=== PATIENT | female | born 1950 | race Caucasian/White ===

== ENCOUNTER 2019-09-12 09:33 | Outpatient (CLI) | payer MEDICARE, SELFPAY ==
--- NOTE | ~2019-09-12 | XR_ITS ---
EXAMINATION: XR chest 2V DATE: 09/12/2019 10:03 INDICATION: Bronchitis. Cough and shortness of breath and wheezing. TECHNIQUE: Frontal and lateral views of the chest were obtained. COMPARISON: Chest 2 views 04/04/2019, CT abdomen and pelvis 10/06/2017 FINDINGS: There is a nodule in left lower lobe. No pleural effusion or pneumothorax. The heart size i s normal. There are changes of old right-sided type III acromioclavicular separation. IMPRESSION: 1. Nodule in left lower lobe suspicious for primary bronchogenic carcinoma. Noncontrast chest CT is r ecommended. I called this result to Dr. Hutton on 09/12/19 at 10:22 AM. Reviewed, dictated and finalized at location A. PACKER IMPRESSION: 1. Nodule in left lower lobe suspicious for primary bronchogenic carcinoma. Non contrast chest CT is recommended. I called this result to Dr. Hutton on at 10:22 AM.
--- NOTE | ~2019-09-12 | XR_ITS ---
EXAMINATION: XR clavicle RT DATE: 09/12/2019 12:18 INDICATION: Right acromioclavicular separation. TECHNIQUE: 2 views of right clavicle were obtained. COMPARISON: Chest 2 views 02/02/2015 FINDINGS: There is inferior dislocation of the acromion with respect to distal clavicle with widening of the coracoclavicular interval without change from 02/02/2015. No fracture. There is moderate glenoh umeral joint osteoarthritis. There are multiple old healed right rib fractures. IMPRESSION: 1. 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 2. Moderate glenohumeral joint osteoarthritis. Reviewed, dictated and finalized at location A. ER STEAM YACHT
== END 2019-09-12 09:34 | disposition home or self-care (01) ==
PROVIDERS: PCP Emergency Medicine; Visit Provider Emergency Medicine
DX: M54.2 Cervicalgia (principal); M19.011 Primary osteoarthritis, right shoulder; R91.1 Solitary pulmonary nodule
CPT/HCPCS: 71046; 73000

== ENCOUNTER 2023-07-05 13:03 | Outpatient (CLI) | payer MEDICARE, SELFPAY ==
--- NOTE | ~2023-07-05 | CT_ITS ---
CT Scan of the Chest without Contrast: Clinical Indication: Lung cancer screening, personal history of nicotine dependence Technique: Contiguous sections were acquired throughout the chest without intravenous contrast. Dose reduction technique was used on this scan by utilizing automated exposure control and iterative recon struction technique. The dose-length product (DLP) was 87.11 mGy-cm. COMPARISON: 10/06/2017 Findings: There is no evidence of any significant mediastinal, hilar or axillary lymphadenopathy. Coronary sage ry calcifications are present. There is no evidence of pleural or pericardial effusion. There is a 9 mm noncalcified left lower lobe pulmonary nodule (axial image 78), unchanged since prior abdominal pelvic CT dated 10/06/2017. There is mild biapical paraseptal emphysema. Images through the upper abdomen reveal no abnormalities. Impression: Lung RADS 2: Benign appearance. 12 month follow-up screening CT advised. Reviewed, dictated and finalized at [facility]. MIC TILER Impression: Lung RADS 2: Benign appearance. 12 month follow-up screening CT advised.
== END 2023-07-05 13:04 | disposition home or self-care (01) ==
PROVIDERS: PCP Internal Medicine; Visit Provider Nurse Practitioner
DX: Z12.2 Encounter for screening for malignant neoplasm of respiratory organs (principal); Z87.891 Personal history of nicotine dependence
CPT/HCPCS: 71271

== ENCOUNTER 2023-12-05 14:23 | Outpatient (CLI) | payer MEDICARE, SELFPAY ==
--- NOTE | ~2023-12-05 | DEXA_ITS ---
Bone Density Report Name: ORA CARREON Age: 73 Sex: Female Ethnicity: White Date of : 1950 Indication: osteopenia; inflammatory bowel disease; asthma or emphysema; Referring Provider: FLEX ISABEL Study: Bone densitometry was performed. Exam Date: December 05, 2023 Accession number: [id number] Bone Density: Region BMD T-score Z-score Classification AP Spine(L1-L4) 1.130 0.8 3.0 Normal Femoral Neck (Left) 0.626 -2.0 -0.1 Osteopenia Total Hip (Left) 0.788 -1.3 0.3 Osteopenia Femoral Neck (Right) 0.633 -1.9 -0.1 Osteopenia Total Hip (Right) 0.704 -1.9 -0.4 Osteopenia Total Hip Mean 0.746 -1.6 -0.1 Osteopenia World Health Organization criteria for BMD impression classify patients as: Normal (T-score at or above -1.0), Osteopenia (T-score between -1.0 and -2.5), or Osteoporosis (T-score at or below -2.5). 10-year Fracture Risk(1): Major Osteoporotic Fracture 12% Hip Fracture 3.8% Reported Risk Factors: [place] (), Neck BMD=0.626, BMI=28.1, smoking (1) FRAX(R) Version 3.08. Fracture probability calculated for an untreated patient. Fracture probability may be lower if the patient has received treatment. Previous Exams: Region Exam Age BMD T-score BMD Change BMD Change Date g/cm2 vs Baseline vs Previous AP Spine (L1-L4) 12/05/2023 73 1.130 0.8 0.018 (1.6%) 0.018 (1.6%) 02/26/2015 64 1.113 0.6 Total Hip(Left) 12/05/2023 73 0.788 -1.3 0.013 (1.7%) 0.041 (5.5%)* 04/25/2019 68 0.747 -1.6 -0.029 (-3.7%) -0.029 (-3.7%) 02/26/2015 64 0.775 -1.4 Total Hip(Right) 12/05/2023 73 0.704 -1.9 -0.027 (-3.7%) -0.004 (-0.6%) 04/25/2019 68 0.709 -1.9 -0.023 (-3.1%) -0.023 (-3.1%) 02/26/2015 64 0.731 -1.7 *Denotes significance at 95% confidence level, LSC for AP Spine = 0.022 g/cm2, LSC for Total Hip = 0.027 g/cm2 Clinical Information Provided by Patient: Smokes Has used the following medications: Vitamin D, Calcium Has the following medical conditions: Asthma or Emphysema, Inflammatory bowel diseases Patient maximum height was 64 Menopause Age: 47 Drinks caffeinated beverages Onset of menses at age 15 Number of children 3 Impression: The patient has low bone mass, based on the Left Femoral Neck T-score. The patient has an estimated ten-year risk of hip fracture of 3.8% and an estimated ten-year risk of major fracture of 12%, based on the WHO FRAX algorithm. The pat
--- NOTE | ~2023-12-05 | MM_ITS ---
EXAMINATION: MM screening radha BI w opal HISTORY: Screening mammogram TECHNIQUE: Craniocaudal and mediolateral oblique 3-D tomosynthesis images were obtained and synthetic 2-D images were generated. CAD analysis was submitted and interpreted. COMPARISON: 05/13/2019 diagnostic left mammogram 04/03/2020 02/15/2019 bilateral screening mammogram BREAST PARENCHYMAL COMPOSITION: There are scattered areas of fibroglandular density. FINDINGS: There is no evidence of suspicious mass, calcification, or architectural distortion to sugg est malignancy in either breast. There has been no suspicious interval change. IMPRESSION: 1. No mammographic evidence of malignancy. 2. Recommend routine screening mammography in one year. BI-RADS Category 1: Negative Reviewed, dictated and finalized at location B.
== END 2023-12-05 14:24 | disposition home or self-care (01) ==
LOC: ANHIMG 14:26
PROVIDERS: PCP Internal Medicine; Visit Provider Nurse Practitioner
DX: Z12.31 Encounter for screening mammogram for malignant neoplasm of breast (principal); M85.89 Other specified disorders of bone density and structure, multiple sites; Z78.0 Asymptomatic menopausal state
CPT/HCPCS: 77063; 77067; 77080

== ENCOUNTER 2024-02-08 12:49 | Outpatient (CLI) | payer MEDICARE, SELFPAY | END 2024-02-08 12:50 | disposition home or self-care (01) | LOC: ANHAUDASC 12:50 | PROVIDERS: PCP Internal Medicine; Visit Provider Otolaryngology | DX: H90.3 Sensorineural hearing loss, bilateral (principal); H93.19 Tinnitus, unspecified ear; J32.0 Chronic maxillary sinusitis | CPT/HCPCS: 92557; 92567 ==

== ENCOUNTER 2024-02-11 12:37 | Outpatient (CLI) | payer MEDICARE, SELFPAY ==
--- NOTE | ~2024-02-11 | CT_ITS ---
CT sinus wo con Ordering provider: Cj Joe M.D. History: . J32.0 - Chronic maxillary sinusitis . Comparison: None. Technique: Thin slice Scans CT of the paranasal sinuses was performed with coronal and sagittal refor matted images. No IV contrast. . Automated exposure control and iterative reconstruction technique w ere employed. The dose-length product was 402.94 mGy-cm. Findings: NASAL SEPTUM: midline. OSTEOMEATAL UNITS: Bilaterally patent. NASAL TURBINATES AND NASOPHARYNX: Normal. PARANASAL SINUSES: Left maxillary sinus disease. VISUALIZED MASTOIDS: Normal as visualized. BONES: Normal. SUPERFICIAL SOFT TISSUES/VISUALIZED BRAIN PARENCHYMA: Normal. IMPRESSION: Left maxillary sinus disease. Other appearances are unremarkable. Reviewed, dictated and finalized at location A.
== END 2024-02-11 12:38 ==
LOC: GOSHIMG 12:38
PROVIDERS: PCP Internal Medicine; Visit Provider Otolaryngology
DX: J32.0 Chronic maxillary sinusitis (principal)
CPT/HCPCS: 70486

== ENCOUNTER 2024-02-20 11:10 | Emergency (ER) | payer MEDICARE, SELFPAY ==
--- NOTE | ~2024-02-20 | XR_ITS ---
EXAMINATION: XR chest 2V 02/20/2024 12:09 INDICATION: Cough and shortness of breath PROCEDURE: 2 view chest COMPARISON: Comparison to multiple prior studies sequentially, with oldest reviewed study dated 01/2015. FINDINGS: The lungs are clear. The cardiomediastinal silhouette is within normal limits. There are no pleural effusions. There is no pneumothorax suspected. IMPRESSION: 1: NO ACUTE CARDIOPULMONARY DISEASE. Reviewed, dictated and finalized at location B.
[2024-02-20 11:12] VITALS: BP 130/89; PULSE 71; RESP 18; TEMP 36.7; O2SAT 97
[2024-02-20 11:47] VITALS: BP 138/78; PULSE 67; RESP 20; O2SAT 94; O2SAT 95
--- NOTE | 2024-02-20 12:09 | PC.NURSE ---
Pt returned to room 19 at this time from xray
--- NOTE | 2024-02-20 12:28 | ED.URI ---
HPI - URI/Sore Throat General Chief Complaint: Upper Respiratory Infection Stated Complaint: phlegm in throat Time Seen by Provider: 02/20/24 11:38 History of Present Illness HPI Narrative: Pt presents with sore throat and cough. [facility] and felt like her airway was closing off and she was SOB so she was sent to the ER. Pt says she coughed and felt like her throat shut but is now fine. Pt denies fever. Cough dry. Pt has hx of COPD. Related Data Home Medications Medication Instructions Recorded Confirmed alendronate 70 mg tablet 70 mg PO WEEKLY 02/05/24 02/05/24 Allergies Allergy/AdvReac Type Severity Reaction Status Date / Time No Known Allergies Allergy Verified 02/05/24 12:55 Review of Systems Review of Systems: All systems reviewed & are unremarkable except as noted in HPI and below PMFSH Past Medical History Medical History Emphysema lung Hyperlipidemia Osteopenia Family History Family History Father Alcoholism Diabetes mellitus Heart disease Mother Diabetes mellitus Cerebrovascular accident Sibling Breast cancer Social History Social History Years smoked: 40 Smoking status: Current some day smoker Tobacco type: cigarettes Alcohol intake: never Substance use: current Substance use type: marijuana Lack of Transportation: No Lack of Food: Never True Current Housing: I Have Housing Concerned About Future Housing: No Difficulty Paying Gas/Electric Bills: No Difficulty Paying for Meds: No Currently Unemployed: No Education: High School Diploma/GED Difficulty w/ Childcare or Family Care: No Exam Const: General: healthy appearing and no acute distress Nutritional Appearance: well nourished Orientation/consciousness: patient oriented x3 Limitations: no limitations HENMT: Mouth: Yes Normal oral and palatal mucosa present and Yes Abnormal oral and palatal mucosa present Throat: posterior oropharynx normal and uvula midline Eyes: EOM: EOMs intact bilaterally Neck: Neck: normal visual inspection Resp: Effort & Inspection: normal respiratory effort Auscultation: clear to auscultation bilaterally Cardio: Rate: regular rate Rhythm: regular rhythm GI: GI Palp: Yes Soft to palpation and No Tenderness to palpation present (GI) Auscultation: normal bowel sounds Skin: General skin exam: normal color Rashes: no rashes Wounds: no wounds Neuro: General: patient oriented x3, moves all extremities, no focal motor deficits and CN's II-XI intact bilaterally Speech: normal speech Extrem: General: normal to inspection and no clubbing, cyanosis or edema Psych: Mental Status: mental status grossly normal Affect: normal affect Attitude: cooperative Course Vital Signs Vital signs: Vital Signs Temperature 98.1 F 02/20/24 11:12 Pulse Rate 71 02/20/24 11:12 Respiratory Rate 18 02/20/24 11:12 Blood Pressure 130/89 02/20/24 11:12 Pulse Oximetry 97 02/20/24 11:12 Oxygen Delivery Room Air 02/20/24 11:12 Temperature 98.1 F 02/20/24 11:12 Pulse Rate 64 02/20/24 14:05 Respiratory Rate 20 02/20/24 14:05 Blood Pressure 140/79 02/20/24 14:05 Pulse Oximetry 96 02/20/24 14:05 Oxygen Delivery Room Air 02/20/24 11:47 MDM - URI/Sore Throat MDM Narrative Medical decision making narrative: [facility] and then complained of airway compromise which has now resolved. her exam is unremarkable and airway is intact. will check for covid/flu and strep and get cxr. swabs and cxr neg. likely viral uri Lab Data Labs: Lab Results 02/20/24 Range/Units 12:14 Influenza A (RT-PCR) Negative (Negative) Influenza B (RT-PCR) Negative (Negative) RSV (RT-PCR) Negative (Negative) SARS-CoV-2 RNA (RT-PCR) Negative (
[2024-02-20 12:47] LABS: Strep Group A RT-PCR NOT DETECTED (Negative)
[2024-02-20 12:59] LABS: Influenza A QL RT-PCR Negative (Negative); Influenza B QL RT-PCR Negative (Negative); RSV RNA, RT-PCR Negative (Negative); SARS-CoV-2 RNA PCR Negative (Negative)
[2024-02-20 13:37] VITALS: BP 146/88; PULSE 77; RESP 20; O2SAT 94
[2024-02-20 14:05] VITALS: BP 140/79; PULSE 64; RESP 20; O2SAT 96
== END 2024-02-20 14:06 | disposition home or self-care (01) ==
PROVIDERS: Emergency Provider Emergency Medicine; PCP Internal Medicine
DX: J06.9 Acute upper respiratory infection, unspecified (principal); Z20.822 Contact with and (suspected) exposure to COVID-19; J43.9 Emphysema, unspecified; J44.9 Chronic obstructive pulmonary disease, unspecified; E78.5 Hyperlipidemia, unspecified; M85.80 Other specified disorders of bone density and structure, unspecified site; F17.210 Nicotine dependence, cigarettes, uncomplicated
CPT/HCPCS: 71046; 87637; 87651; 99283

== ENCOUNTER 2024-07-14 08:20 | Outpatient (CLI) | payer MEDICARE, SELFPAY ==
--- NOTE | ~2024-07-14 | CT_ITS ---
CT Scan of the Chest without Contrast: Clinical Indication: Lung cancer screening, nicotine dependence Technique: Contiguous sections were acquired throughout the chest without intravenous contrast. Dose reduction technique was used on this scan by utilizing automated exposure control and iterative recon struction technique. The dose-length product (DLP) was 99.50 mGy-cm. COMPARISON: 07/05/2023 Findings: There is no evidence of any significant mediastinal, hilar or axillary lymphadenopathy. The mediastin al soft tissues appear normal. There is no evidence of pleural or pericardial effusion. There is mild paraseptal emphysema in the upper lobes. Stable 9 mm left lower lobe pulmonary nodule ( axial image 80). Images through the upper abdomen reveal no abnormalities. Impression: Lung RADS 2: Benign appearance. 12 month follow-up screening CT advised. Reviewed, dictated and finalized at [facility]. BUFFER Impression: Lung RADS 2: Benign appearance. 12 month follow-up screening CT advised.
--- OUTSIDE RECORDS SUMMARY | 2024-07-20 06:44 | XMS_ITS | Encounter Summary ---
Author Organization [facility] Address [address] [place] [address] Care Team Providers Care Batting Machine Operator Name Role Phone Usha Henry MD Primary Care Provider [phone] Encounter Details Date Type Department Care Team (Latest Contact Info) Description 12/01/2020 Travel Social History Tobacco Use Types Packs/Day Years Used Date Smoking Tobacco: Every Day Cigarettes Smokeless Tobacco: Never Comments:1 pack a week Alcohol Use Standard Drinks/Week Comments No 0 (1 standard drink = 0.6 oz pur e alcohol) Sex and Gender Information Value Date Recorded Sex Assigned at Not on file Gender Identity Not on file Sexual Orientation Not on file COVID-19 Exposure Response Date Recorded In the last month, have you been in contact with someone who was confirmed or suspected to have Coronavirus / COVID-19? No / Unsure 12/01/2020 8:10 AM CDT documented as of this encounter Plan of Treatment Not on file documented as of this encounter Visit Diagnoses Not on filedocumented in this encounter Care Teams Batting Machine Operator Relationship Specialty Start Date End Date Usha Henry MD [address] [place] [phone] PCP - General Family Medicine 09/19/19 documented as of this encounter
--- OUTSIDE RECORDS SUMMARY | 2024-07-20 06:44 | XMS_ITS | Encounter Summary ---
Author Organization [facility] Address [address] [place] [address] Care Team Providers Care Combiner Operator Name Role Phone Usha Henry MD Primary Care Provider [phone] Encounter Details Date Type Department Care Team (Latest Contact Info) Description 06/22/2021 Travel Social History Tobacco Use Types Packs/Day Years Used Date Smoking Tobacco: Former Cigarettes Q uit: 11/2020 Smokeless Tobacco: Never Comments:1 pack a week [...] have Coronavirus / COVID-19? No / Unsure 06/22/2021 12:36 PM THORACIC MEDICINE SPECIALIST documented as of this encounter Plan of Treatment Not on file documented as of this encounter Visit Diagnoses Not on filedocumented in this encounter Care Teams Combiner Operator Relationship Specialty Start Date End Date Usha Henry MD [address] [place] [phone] PCP - General Family Medicine 09/19/19 documented as of this encounter
--- OUTSIDE RECORDS SUMMARY | 2024-07-20 06:44 | XMS_ITS | Encounter Summary ---
Author Organization [facility] Address [address] [place] [address] Care Team Providers Care Hydraulic Plumber Name Role Phone Usha Henry MD Primary Care Provider [phone] Reason for Referral * Radiology Services (Routine) - Closed Specialty Diagnoses / Procedures Referred By Ronna crockett Referred To Contact CT Scan Diagnoses Pulmonary nodules Procedures CT CHEST WO CONTRAST Derek Johnson MD [address] [place] [address] [address]L DIV OF PULM/[place] [address] [facility] [address] [place] [address] Referral ID Status Reason Start Date Expiration Date Visits Re quested Visits Authorized [id number] Closed 11/16/2022 12/16/2022 1 1 Reason for Visit * Reason Onset Date Comments Order 10/30/2022 Encounter Details Date Type Department Care Team (Late st Contact Info) Description 10/30/2022 Telephone [facility] [address] [place] [address] Derek Johnson MD [address] [place] [address] [address] DIV OF PULM/[place] [address] Order Social History Tobacco Use Types Packs/Day Years Used Date Smoking Tobacco: Former Cigarettes Q uit: 11/2020 Smokeless Tobacco: Never Comments:1 pack a week Alcohol Use Standard Drinks/Week Comments No 0 (1 standard drink = 0.6 oz pur e alcohol) Sex and Gender Information Value Date Recorded Sex Assigned at Not on file Gender Identity Not on file Sexual Orientation Not on file documented as of this encounter Miscellaneous Notes * Telephone Encounter - Renuka Issa RN - 10/31/2022 10:12 AM CDT Spoke to pt; pt notified; pt reports understanding. * Telephone Encounter - Derek Johnson MD - 10/31/2022 9:52 AM CDT Orders placed. documented in this encounter Plan of Treatment Not on file documented as of this encounter Results * CT CHEST WO CONTRAST (11/16/2022 2:40 PM CDT) Anatomical Region Laterality Modality Chest Computed Tomogra phy 11/16/2022 4:19 PM CDT Impressions 11/16/2022 4:26 PM CDT IMPRESSION: 1.Stable right upper lobe 3 mm and left lower lobe 9 mm pulmonary nodules from 12/12/2018. Findings are considered benign given long-term stability. 2.No new suspicious pulmonary nodules. > Interpreting Provider: MÓNICA SINHA MD on 11/16/2022 4:26 PM Narrative 11/16/2022 4:26 PM CDT EXAMINATION: Computed tomography (CT) of the chest without contrast HISTORY: R91.8: Pulmonary nodules TECHNIQUE: CT of the chest was performed without intravenous contrast according to standard protocol. COMPARISON: Multiple priors, most recent CT chest without contrast dated 11/16/2022 FINDINGS: Chest: A left sided aorta is present. The aorta and main pulmonary artery are normal in course and caliber. Mild atherosclerosis of the aorta and its major branching vessels is noted. No axillary, supraclavicular, mediastinal, or hilar lymphadenopathy is identified. The thyroid attenuates normally. The heart is normal in size. No pericardial effusion is seen. Mild coronary artery atherosclerosis is present. No confluent consolidation is noted. Mild paraseptal emphysematous changes are noted within the lung apices. No pleural effusion is seen. No pneumothorax is identified. The trachea is patent without endobronchial lesion. Pulmonary Nodules: *Stable 9 mm left lower lobe pulmonary nodule from 12/12/2018. *Stable 3-4 mm right upper lobe pulmonary nodule (series 4 image 24). *No new suspicious pulmonary nodules. The imaged upper abdominal viscera are within normal limits. The soft tissues are within normal limits. No lytic or blastic lesions are identified. The osseous structures are intact. Degenerative changes are seen throughout the spine. Procedure Note Mónica Sinha MD - 11/16/2022 EXAMINATION: Computed tomography (CT) of the chest without contrast HISTORY: R91.8: Pulmonary nodules TECHNIQUE: CT of the chest was performed without intravenous contrast according to standard protocol. COMPARISON: Multiple priors, most recent CT chest without contrast dated 11/16/2022 FINDINGS: Chest: A left sided aorta is present. The aorta and main pulmonary artery are normal in course and caliber. Mild atherosclerosis of the aorta and its major branching vessels is noted. No axillary, supraclavicular, mediastinal, or hilar lymphadenopathy is identified. The thyroid attenuates normally. The heart is normal in size. No pericardial effusion is seen. Mildcoronary artery atherosclerosis is present. No confluent consolidation is noted. Mild paraseptal emphysematouschanges are noted within the lung apices. No pleural effusion is seen. No pneumothorax is identified. The trachea is patent without endobronchial lesion. Pulmonary Nodules: *Stable 9 mm left lower lobe pulmonary nodule from 12/12/2018. *Stable 3-4 mm right upper lobe pulmonary nodule (series 4 image 24). *No new suspicious pulmonary nodules. The imaged upper abdominal viscera are within normal limits. The soft tissues are within normal limits. No lytic or blastic lesions are identified. The osseous structures are intact. Degenerative changes are seen throughout the spine. IMPRESSION: 1.Stable right upper lobe 3 mm and left lower lobe 9 mm pulmonarynodules from 12/12/2018. Findings are considered benign given long-termstability. 2.No new suspicious pulmonary nodules. > Interpreting Provider: MÓNICA SINHA MD on 11/16/2022 4:26 PM Derek Johnson MD CT ORDERABLES documented in this encounter Visit Diagnoses Diagnosis Pulmonary nodules- Primary Other nonspecific abnormal finding of lung field Pulmonary nodules Other nonspecific abnormal finding of lung field documented in this encounter Care Teams Hydraulic Plumber Relationship Specialty Start Date End Date Usha Henry MD [address] [place] [phone] PCP - General Family Medicine 09/19/19 documented as of this encounter
--- OUTSIDE RECORDS SUMMARY | 2024-07-20 06:44 | XMS_ITS | Clinical Summary ---
Author Organization [facility] [email or web address] Address [address] [place] [address] Care Team Providers Care Health Information Provider Name Role Phone Usha Henry MD Primary Care Provider [phone] Source Comments [facility] [email or web address],non-owned Affiliates and Associated Physician Practices is amultiple site organization consisting of ambulatory clinics and hospital sitesin [place], [place], [place] and [place]. This disclosure is being madepursuant to the Care Everywhere program and may not contain all information available regarding this patient. Last updated 18.[email or web address] Allergies No known active allergies Medications * Be aware that medications may not be up to date on this document. Alwaysverify current medications with the patient. Medication Sig Dispensed Refills Start Date End Date Status omeprazole EC (PRILOSEC OTC) 20 MG tablet Take 20 mg by mouth BID. 10/19/2017 Active Vitamin D, Cholecalciferol, 1000 UNITS Take 1,000 mg by mouth once daily Active calcium 500 MG tablet Take 500 mg by mouth once daily Active Multiple Vitamins-Minerals (WOMENS MULTI VITAMIN & MINERAL) TABS Take 1 tablet by mouth once daily Active aspirin (ASPIRIN) 81 MG tablet Take 81 mg by mouth once daily Active pravastatin (PRAVACHOL) 40 MG tablet Take 1 tablet by mouth once daily 11/22/2018 Active meclizine (ANTIVERT) 25 MG tablet TK 1 T PO TID PRF DIZZINESS 0 04/02/2019 Active vitamin D, ergocalciferol, (DRISDOL) 1.25 MG (20103 UT) capsule TK 1 C PO Q WK 03/02/2020 Ac tive sertraline (ZOLOFT) 50 MG tablet Take 50 mg by mouth once daily Active Spacer/Aero-Holding Chambers (AEROCHAMBER)Indicat ions:Chronic obstructive pulmonary disease, unspecified COPD type (HCC) Inhale by mouth as directed 1 Each 04/23/2020 Active alendronate (FOSAMAX) 70 MG tablet Take 70 mg by mouth every 7 days 12/06/2020 Active nicotine (NICODERM CQ) 7 MG/24HR patchIndications:Tob acco abuse Apply 1 (one) patch to skin once daily 30 patch 6 12/20/2020 Active Additional Information Patient not taking.Reported on 08/29/2021 omeprazole (PRILOSEC) 20 MG capsule Take 20 mg by mouth once daily 07/29/2021 Active Symbicort 160-4.5 MCG/ACT inhalerIndications:C hronic obstructive pulmonary disease, unspecified COPD type (HCC) INHALE 2 PUFFS BY MOUTH TWICE DAILY 10.2 g 3 01/01/2023 Active Active Problems Problem Noted Date Diagnosed Date Other emphysema 04/23/2020 Immunizations Name Administration Dates Next Due 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 (FLUZONE HIGH-DOSE QUADRIVALENT; 65Y+), 0.7 ML (HD-IIV4) 04/23/2020,04/26/2018 PNEUMOCOCCAL PPSV23 04/23/2020 Pneumococcal Pcv13 Conj 04/26/2018 Family History Medical History Relation Name Comments Diabetes - Type 2 Father CAD (Coronary Artery Disease) Mother CVA Mother Diabetes - Type 2 Mother Cancer - Breast Sister 1 Cancer - Breast Sister 2 COPD - Chronic Obstructive Pulmonary Disease Neg Hx Relation Name Status Comments Father Mother Sister 1 Sister 2 Social History Tobacco Use Types Packs/Day Years Used Date Smoking Tobacco: Former Cigarettes Q uit: 11/2020 Smokeless Tobacco: Never Tobacco Cessation:Ready to Q uit: Yes; Counseling Given: Yes Comments:1 pack a week Alcohol Use Standard Drinks/Week Comments No 0 (1 standard drink = 0.6 oz pur e alcohol) Sex and Gender Information Value Date Recorded Sex Assigned at Not on file Gender Identity Not on file Sexual Orientation Not on file Last Filed Vital Signs Vital Sign Reading Time Taken Comments Blood Pressure 119/68 08/29/2021 10:44 AM [employer] Pulse 78 08/29/2021 10:44 AM [employer] Temperature 36.2 ??C (97.1 ??F) 08/29/2021 10:[address] Respiratory Rate 16 08/29/2021 10:44 AM [employer] Oxygen Saturation 97% 08/29/2021 10:44 AM [employer] Inhaled Oxygen Concentration - - Weight 76.2 kg (168 lb) 08/29/2021 10:44 AM [employer] Height 162.6 cm (5' 4 ) 08/29/2021 10:44 AM [employer] Body Mass Index 28.84 08/29/2021 10:44 AM [employer] Plan of Treatment Health Maintenance Due Date Last Done Comments BONE DENSITY TESTING 1950 COLOGUARD (AGES 45-75) - COL ON CA SCREENING 1950 COLON MONITORING 1950 COLONOSCOPY - COLON CA SCREENING 1950 CT COLONOGRAPHY - COLON CA SCREENING 1950 Colorectal Cancer Screening 1950 FIT - COLON CA SCREENING 1950 FLEX SIG - COLON CA SCREENING 1950 MAMMOGRAM 1950 HEPATITIS C SCREENING 05/30/1970 DTAP/TDAP/TD VACCINES (1 - Tdap) 1971 ZOSTER VACCINE (1 of 2) 2002 Respiratory Syncytial Virus (RSV) Vaccine Pt: or over 60 yrs (1 - Risk 60-74 years 1-dose series) 2012 SCREENING FOR DIABETES 12/20/2020 DEPRESSION SCREENING 07/30/2023 COVID-19 VACCINE (4 - 2023-2 5 season) 2024 09/05/2021, 09/26/2020, 09/05/2020 INFLUENZA VACCINE (#1) 2024 0, 04/26/2018 PNEUMOCOCCAL VACCINE 65+ Completed 020, 04/26/2018 HEPATITIS B VACCINE Aged Out No longe r eligible based on patient's age to complete this topic HIB VACCINE Aged Out No longer eligi ble based on patient's age to complete this topic HPV VACCINE Aged Out No longer eligi ble based on patient's age to complete this topic MENINGOCOCCAL VACCINE Aged Out No liana rome eligible based on patient's age to complete this topic Care Teams Health Information Provider Relationship Specialty Start Date End Date Usha Henry MD [address] [place] [phone] PCP - General Family Medicine 09/19/19
--- OUTSIDE RECORDS SUMMARY | 2024-07-20 06:44 | XMS_ITS | Encounter Summary ---
Author Organization [facility] Address [address] [place] [address] Care Team Providers Care Glue Maker Name Role Phone Usha Henry MD Primary Care Provider [phone] Encounter Details Date Type Department Care Team (Late st Contact Info) Description 12/20/2020 9:40 AM CDT Office Visit [facility] [address], [address] [place], [place] [id number] Derek Johnson MD [address] [facility] 2L DIV OF PULM/[place] [address] Chronic obstructive pulmonary disease, unspecified COPD type (HCC) (Primary Dx); Tobacco abuse; Immunization counseling Social History Tobacco Use Types Packs/Day Years [...] AM CDT documented as of this encounter Last Filed Vital Signs Vital Sign Reading Time Taken Comments Blood Pressure 120/70 12/20/2020 9:30 AM CDT Pulse 71 12/20/2020 9:30 AM CDT Temperature 36.2 ??C (97.1 ??F) 12/20/2020 9:30 AM CD T Respiratory Rate 18 12/20/2020 9:30 AM CDT Oxygen Saturation 96% 12/20/2020 9:30 AM CDT Inhaled Oxygen Concentration - - Weight 77.6 kg (171 lb) 12/20/2020 9:30 AM CDT Height 162.6 cm (5' 4 ) 12/20/2020 9:30 AM CDT Body Mass Index 29.35 12/20/2020 9:30 AM CDT documented in this encounter Patient Instructions * Patient Instructions* Derek Johnson MD - 12/20/2020 9:54 AM CDT 1. Take Symbicort with spacer 2 puffs twice a day, rinsing mouth out after 2. Start Spiriva 2 puffs daily with NO spacer 3. Continue albuterol with spacer 4. CAT scan in May documented in this encounter Progress Notes * Derek Johnson MD - 12/20/2020 9:40 AM CDT Pulmonary Medicine Outpatient Consultation Patient Name: Florencia Martinez Date of : 1950 Date of Service: 12/20/2020 Requesting Physician: Unknown, Provider Primary Care Physician: Usha Henry MD Reason for Visit: COPD, pulmonary nodule History of Present Illness from Dr. Garcia's note on 09/19/19: Florencia Martinez??is a 69 y.o.??female with past medical history significant for tobacco abuse, lung nodule, IBS, C diff, who presents to the clinic today for evaluation of COPD. Alleviated by rest, exacerbated by activity. Timing of symptoms is constant. Quality is dull, achy. Severity is moderate. Location is chest. Doing better with Anoro ellipta inhaler. In interim, still smoking. Recently had a chest xray which reported to re-demonstrate LLL nodule. Interval History: -quit smoking mostly at all -will rarely cheat and take 2-3 puffs on a cigarette -does have sinus congestion -still has white sputum production which is not changed -no fevers or chills -has a cough in the mornings to clear throat, however, this is less -SOB still varies -uses albuterol about once a day -no hospitalization -no azithromycin -insurance will not cover tiotropium/olodaterol any more -switched to budesonide/formoterol Past Medical History: Diagnosis Date ??? Emphysema of lung ??? Fibroids uterine ??? Hypertension No past surgical history on file. Social History Socioeconomic History ??? Marital status: Spouse name: Not on file ??? Number of children: Not on file ??? Years of education: Not on file ??? Highest education level: Not on file Occupational History ??? Not on file Tobacco Use ??? Smoking status: Former Smoker Packs/day: 0.50 Quit date: 11/2020 Years since quittin.0 ??? Smokeless tobacco: Never Used ??? Tobacco comment: 1 pack a week Vaping Use ??? Vaping Use: Never used Substance and Sexual Activity ??? Alcohol use: No ??? Drug use: Yes Types: Marijuana Comment: occasional ??? Sexual activity: Not on file Other Topics Concern ??? Not on file Social History Narrative ??? Not on file Social Determinants of Health Financial Resource Strain: ??? Difficulty of Paying Living Expenses: Food Insecurity: ??? Worried About Running Out of Food in the Last Year: ??? Ran Out of Food in the Last Year: Transportation Needs: ??? Lack of Transportation (Medical): ??? Lack of Transportation (Non-Medical): Physical Activity: ??? Days of Exercise per Week: ??? Minutes of Exercise per Session: Stress: ??? Feeling of Stress : Social Connections: ??? Frequency of Communication with Friends and Family: ??? Frequency of Social Gatherings with Friends and Family: ??? Attends [employer] Services: ??? Active Member of Clubs or Organizations: ??? Attends Club or Organization Meetings: ??? Marital Status: Intimate Partner Violence: ??? Fear of Current or Ex-Partner: ??? Emotionally Abused: ??? Physically Abused: ??? Sexually Abused: Family History Problem Relation Name Age of Onset ??? CAD (Coronary Artery Disease) Mother ??? CVA Mother ??? Diabetes - Type 2 Mother ??? Diabetes - Type 2 Father ??? Cancer - Breast Sister ??? Cancer - Breast Sister ??? COPD - Chronic Obstructive Pulmonary Disease Neg Hx No Known Allergies Current Outpatient Medications on File Prior to Visit Medication Sig Dispense Refill ??? alendronate (FOSAMAX) 70 MG tablet Take 70 mg by mouth every 7 days ??? aspirin (ASPIRIN) 81 MG tablet Take 81 mg by mouth once daily ??? calcium 500 MG tablet Take 500 mg by mouth once daily ??? meclizine (ANTIVERT) 25 MG tablet TK 1 T PO TID PRF DIZZINESS (Patient not taking: Reported on 12/20/2020) 0 ? ? Multiple Vitamins-Minerals (WOMENS MULTI VITAMIN & MINERAL) TABS Take 1 tablet by mouth once daily ??? omeprazole EC (PRILOSEC OTC) 20 MG tablet Take 20 mg by mouth BID. ??? pravastatin (PRAVACHOL) 40 MG tablet Take 1 tablet by mouth once daily (Patient not taking: Reported on 12/20/2020) ??? sertraline (ZOLOFT) 50 MG tablet Take 50 mg by mouth once daily ??? Spacer/Aero-Holding Chambers (AEROCHAMBER) Inhale by mouth as directed 1 Each 0 ??? SYMBICORT 160-4.5 MCG/ACT inhaler Inhale 1 puff by mouth 2 times daily ??? Tiotropium [place]-Olodaterol (STIOLTO RESPIMAT) 2.5-2.5 MCG/ACT Inhale 2 puffs by mouth once daily (Patient not taking: Reported on 12/20/2020) 1 Inhaler 11 ??? VENTOLIN HFA 108 (90 Base) MCG/ACT inhaler Inhale 2 (two) puffs by mouth every 6 hours as needed 1 Inhaler 11 ??? Vitamin D, Cholecalciferol, 1000 UNITS Take 1,000 mg by mouth once daily (Patient not taking: Reported on 12/20/2020) ??? vitamin D, ergocalciferol, (DRISDOL) 1.25 MG (44965 UT) capsule TK 1 C PO Q WK No current facility-administered medications on file prior to visit. Physical Exam: BP 120/70 (BP SITE: RIGHT ARM, BP POSITION: SITTING) Pulse 71 Temp 97.1 ??F (36.2 ??C) Resp 18 Ht 5' 4 (1.626 m) Wt 171 lb (77.6 kg) SpO2 96% BMI 29.35 kg/m2 Body mass index is 29.35 kg/m??. Physical Exam Constitutional: Appearance: Normal appearance. HENT: Head: Normocephalic and atraumatic. Eyes: Extraocular Movements: Extraocular movements intact. Pupils: Pupils are equal, round, and reactive to light. Cardiovascular: Rate and Rhythm: Normal rate and regular rhythm. Pulmonary: Effort: Pulmonary effort is normal. Breath sounds: Examination of the right-upper field reveals wheezing. Examination of the left-upperfield reveals wheezing. Wheezing present. No rhonchi or rales. Abdominal: General: Bowel sounds are normal. Palpations: Abdomen is soft. Tenderness: There is no abdominal tenderness. Musculoskeletal: Right lower leg: No edema. Left lower leg: No edema. Skin: General: Skin is warm and dry. Neurological: General: No focal deficit present. Mental Status: She is alert and oriented to person, place, and time. Pulmonary Function Testing: FVC FEV1 FEV1/FVC TLC RV DLCO 11/13/17 2.85 (92%) -> 2.92 (95%) +2% 1.96 (84%) -> 2.05 (88%) +4% 0.689 -> 0.702 5.01 (102%) -> 5.47 (111%) +11% 2.41 (133%) -> 2.58 (142%) +9% 20.56 (114%) Imaging: CT chest w/o IV contrast: 12/01/20 Impression: ?? 1.Interval increase in the size of the previously-reported right upper lobe solid nodule in addition to a new 3.5 mm solid nodule in the left upper lobe. According to Fleischner Society pulmonary nodule recommendations, CT at 3-6 months, then CT at 18-24 months. 2.Stable 9 mm left lower lobe solid nodule. 3.Stable apical scarring and paraseptal emphysema predominantly in the upper lobes. Per outside hospital reports: Ct chest 10/26/16 low dose screening: - 9 mm solitary non-calcified solid left lower lobe nodule - emphysema - small mediastinal lymph nodes, non specific - CAD ?? PET CT scan 11/04/16: - 9 mm left lower lobe non calcified nodule, with not increased FDG uptake - recommend 6 month follow up to document stability ?? October [address] OSH - 9 mm LLL nodule. Patient told it was stable ? CT chest 12/12/18: ??At [facility] IMPRESSION: ?? Left lower lobe 9 mm solid nodule and right upper lobe 2 mm solid nodule. Comparison with prior outside imaging would be helpful to determine stability. If the 9 mm nodule has been stable since 2017, then it is likely benign and continued yearly follow-up would be advised. If the 9 mm nodule is new or increased, then PET/CT or biopsy should be considered. CT chest w/o IV contrast: 04/16/20 at [facility] IMPRESSION: ?? 1. Left lower lobe 9 mm pulmonary nodule is unchanged from 12/12/2018. Impression: 1. COPD 2. Tobacco abuse 3. Pulmonary nodule 4. Immunization counseling Recommendations: 1. Repeat CT chest 06/03/21 2. Continue budesonide/formoterol 160/4.5 mcg MDI 2 puffs BID with spacer 3. Start tiotriopium 2.5 mcg Respimat 2 puffs daily 4. Continue albuterol 90 mcg MDI 2 puffs q4h PRN with spacer 5. Nicotine patches given. Congratulated on tobacco cessation progress. 6. Yearly influenza vaccination completed for [id number] season 7. COVID-19 vaccination complted 8. PCV-13 completed 9. PPSV-23 completed RTC in 6 months Derek Johnson MD [employer] Teacher of Pulmonary & Critical Care Medicine [facility] Pager [phone] documented in this encounter Plan of Treatment Not on file documented as of this encounter Visit Diagnoses Diagnosis Chronic obstructive pulmonary disease, unspecified COPD type (HCC)- Primary Tobacco abuse Tobacco use disorder Immunization counseling documented in this encounter Care Teams Glue Maker Relationship Specialty Start Date End Date Usha Henry MD [address] [place] [phone] PCP - General Family Medicine 09/19/19 documented as of this encounter
--- OUTSIDE RECORDS SUMMARY | 2024-07-20 06:44 | XMS_ITS | Encounter Summary ---
Author Organization [facility] Address [address] [place] [address] Care Team Providers Care Websphere Commerce Developer Name Role Phone Usha Henry MD Primary Care Provider [phone] Reason for Visit * Reason Comments COPD Cough Emphysema Encounter Details Date Type Department Care Team (Late st Contact Info) Description 08/29/2021 10:30 AM [employer] Office Visit [facility] [address], [address] [place], [place] [id number] Derek Johnson MD [address] DIV OF PULM/[place] [address] Chronic obstructive pulmonary disease, unspecified COPD type (HCC) (Primary Dx); Pulmonary nodules; Immunization counseling; Tobacco abuse Social History Tobacco Use Types Packs/Day Years [...] on file documented as of this encounter Last Filed Vital Signs Vital Sign Reading Time Taken Comments Blood Pressure 119/68 08/29/2021 10:44 AM [employer] Pulse 78 08/29/2021 10:44 AM [employer] Temperature 36.2 ??C (97.1 ??F) 08/29/2021 10:[address] Respiratory Rate 16 08/29/2021 10:44 AM [employer] Oxygen Saturation 97% 08/29/2021 10:44 AM [employer] Inhaled Oxygen Concentration - - Weight 76.2 kg (168 lb) 08/29/2021 10:44 AM [employer] Height 162.6 cm (5' 4 ) 08/29/2021 10:44 AM [employer] Body Mass Index 28.84 08/29/2021 10:44 AM [employer] documented in this encounter Patient Instructions * Patient Instructions* Derek Johnson MD - 08/29/2021 10:54 AM [employer] 1. Can consider changing loratadine (Claritin) to Zyrtec or Irina (or generic) 2. Consider doing NetiPot or saline rinse with sterile water prior to Flonase. 3. Continue patches for smoking cessation. Consider getting nicotine lozenges for cravings 4. Call the -166 number for assistance as well as GoodRx and coupons on line [employer] documented in this encounter Progress Notes * Derek Johnson MD - 08/29/2021 10:30 AM CST Pulmonary Medicine Outpatient Consultation Patient Name: Florencia Martinez Date of : 1950 Date of Service: 08/29/2021 Requesting Physician: Unknown, Provider Primary Care Physician: [...] reported to re-demonstrate LLL nodule. Interval History: -doing pretty good -still has sinus congestion with rhinorrhea and postnasal drip -->taking fluticasone and loratadine -using budesonide/formoterol twice a day -using tiotropium -tried patches to quit smoking but can't afford patches, wants to quit Past Medical History: Diagnosis Date ??? Emphysema [...] Packs/day: 0.50 Quit date: 11/2020 Years since quittin.7 ??? Smokeless tobacco: Never Used ??? Tobacco comment: 1 pack a week Vaping Use ??? Vaping Use: Never used Substance and Sexual Activity ??? Alcohol use: No ??? Drug use: Yes Types: Marijuana Comment: occasional ??? Sexual activity: Not on file Other Topics Concern ??? Not on file Social History Narrative ??? Not on file Social Determinants of Health Financial Resource Strain: Not on file Food Insecurity: Not on file Transportation Needs: Not on file Physical Activity: Not on file Stress: Not on file Social Connections: Not on file Intimate Partner Violence: Not on file Housing Stability: Not on file Family History Problem Relation Name Age of [...] to Visit Medication Sig Dispense Refill ??? albuterol HFA (VENTOLIN HFA) 108 (90 Base) MCG/ACT inhaler Inhale 2 (two) puffs by mouth every 6 hours as needed for Shortness of Breath or Wheezing 1 Inhaler 11 ??? alendronate (FOSAMAX) 70 MG tablet Take 70 mg by mouth every 7 days (Patient not taking: Reported on 08/29/2021) ??? aspirin (ASPIRIN) 81 MG tablet Take 81 mg by mouth once daily ??? budesonide-formoterol (SYMBICORT) 160-4.5 MCG/ACT inhaler Inhale 2 (two) puffs by mouth 2 timesdaily 1 Inhaler 11 ??? calcium 500 MG tablet Take 500 mg by mouth once daily ??? meclizine (ANTIVERT) 25 MG tablet TK 1 T PO TID PRF DIZZINESS (Patient not taking: Reported on 12/20/2020) 0 ? ? Multiple Vitamins-Minerals (WOMENS MULTI VITAMIN & MINERAL) TABS Take 1 tablet by mouth once daily ??? nicotine (NICODERM CQ) 7 MG/24HR patch Apply 1 (one) patch to skin once daily (Patient not taking: Reported on 08/29/2021) 30 patch 6 ??? omeprazole (PRILOSEC) 20 MG capsule Take 20 mg by mouth once daily ??? omeprazole EC (PRILOSEC OTC) 20 MG tablet Take 20 mg by mouth BID. (Patient not taking: Reported on 08/29/2021) ??? pravastatin (PRAVACHOL) 40 MG tablet Take 1 tablet by mouth once daily (Patient not taking: Reported on 12/20/2020) ??? sertraline (ZOLOFT) 50 MG tablet Take 50 mg by mouth once daily ??? Spacer/Aero-Holding Chambers (AEROCHAMBER) Inhale by mouth as directed 1 Each 0 ??? tiotropium (SPIRIVA RESPIMAT) 2.5 MCG/ACT inhaler Inhale 2 (two) puffs by mouth once daily 1 Inhaler 11 ??? Vitamin D, Cholecalciferol, 1000 UNITS Take 1,000 mg by mouth once daily (Patient not taking: Reported on 12/20/2020) ??? vitamin D, ergocalciferol, (DRISDOL) 1.25 MG (33764 UT) capsule TK 1 C PO Q WK No current facility-administered medications on file prior to visit. Physical Exam: BP 119/68 (BP SITE: LEFT ARM, BP POSITION: SITTING, BP CUFF SIZE: 11) Pulse 78 Temp 97.1 ??F (36.2 ??C) (Temporal) Resp 16 Ht 5' 4 (1.626 m) Wt 168 lb (76.2 kg) SpO2 97% BMI 28.84 kg/m2 Body mass index is 28.84 kg/m??. Physical Exam Constitutional: Appearance: Normal appearance. [...] (114%) Imaging: CT chest w/o IV contrast: 06/22/21 Impression: Stable 8 mm pulmonary nodule in the left lower lobe and 3 mm nodule in the right upper lobe. Previously described 4 mm nodule in the left upper lobe is less prominent on today's exam. No new or enlarging nodules. CT chest w/o IV contrast: 12/01/20 Impression: [...] was stable ? CT chest 12/12/18: ??At [facility] IMPRESSION: ?? Left lower lobe 9 mm [...] CT chest w/o IV contrast: 04/16/20 at [facility] IMPRESSION: ?? 1. Left lower lobe 9 mm pulmonary nodule is unchanged from 12/12/2018. Impression: 1. COPD 2. Tobacco abuse 3. Pulmonary nodule 4. Immunization counseling Recommendations: 1. Repeat CT chest 06/03/21 2. Continue budesonide/formoterol 160/4.5 mcg MDI 2 puffs BID with spacer 3. Continue tiotriopium 2.5 mcg Respimat 2 puffs daily 4. Continue albuterol 90 mcg MDI 2 puffs q4h PRN with spacer 5. NRT discussed and smoking cessation number given 6. Yearly influenza vaccination recommended, will likely get with upcoming COVID-19 booster 7. COVID-19 vaccination completed, due for booster 8. PCV-13 completed 9. PPSV-23 completed RTC in 10 months Derek Johnson MD [employer] Worker of Pulmonary & Critical Care Medicine [facility] Pager [phone] [employer] documented in this encounter Plan of Treatment Not on file documented as of this encounter Visit Diagnoses Diagnosis Chronic obstructive pulmonary disease, unspecified COPD type (HCC)- Primary Pulmonary nodules Other nonspecific abnormal finding of lung field Immunization counseling Tobacco abuse Tobacco use disorder documented in this encounter Care Teams Websphere Commerce Developer Relationship Specialty Start Date End Date Usha Henry MD [address] [place] [phone] PCP - General Family Medicine 09/19/19 documented as of this encounter
--- OUTSIDE RECORDS SUMMARY | 2024-07-20 06:44 | XMS_ITS | Encounter Summary ---
Author Organization [facility] Address [address] [place] [address] Care Team Providers Care Vocational Horticulture Instructor Name Role Phone Usha Henry MD Primary Care Provider [phone] Reason for Referral * Radiology Services (Routine) - Closed Specialty Diagnoses / Procedures Referred By Ronna crockett Referred To Contact CT Scan Diagnoses Pulmonary nodules Procedures CT CHEST WO CONTRAST Derek Johnson MD [address] [facility] 2L DIV OF PULM/[place] [address] [facility] [address] [place] [address] Referral ID Status Reason Start Date Expiration Date Visits Re quested Visits Authorized [id number] Closed 06/22/2021 07/22/2021 1 1 Reason for Visit * Reason Onset Date Comments Results 12/02/2020 Encounter Details Date Type Department Care Team (Late st Contact Info) Description 12/02/2020 Telephone [facility] Pulmonary, Critical Care and Sleep Medicine [address] [facility], [place] [id number] Derek Johnson MD [address] [facility] 2L DIV OF PULM/[place] [address] Results Social History Tobacco Use Types Packs/Day Years [...] AM CDT documented as of this encounter Miscellaneous Notes * Telephone Encounter - Derek Johnson MD - 12/02/2020 11:00 AM CDT Called patient and let her know results. Plan on repeating CT chest in 6 months. Order placed. documented in this encounter Plan of Treatment Not on file documented as of this encounter Results * CT CHEST WO CONTRAST (06/22/2021 12:54 PM FRONT OF HOUSE MANAGER) Anatomical Region Laterality Modality Chest Computed Tomogra phy 06/22/2021 2:23 PM FRONT OF HOUSE MANAGER Impressions 06/22/2021 4:20 PM FRONT OF HOUSE MANAGER Impression: Stable 8 mm pulmonary nodule in the left lower lobe and 3 mm nodule in the right upper lobe. Previously described 4 mm nodule in the left upper lobe is less prominent on today's exam. No new or enlarging nodules. Dictated by Masha Negron MD (college president). I, Dr. SHA JAY MD have personally reviewed and interpreted this examination/study. This report was electronically signed by SHA JAY MD ??on 06/22/2021 4:20 PM . Narrative 06/22/2021 4:20 PM FRONT OF HOUSE MANAGER Procedure Information DATE: 06/22/2021 12:54 PM EXAMINATION: Computed tomography (CT) of the chest without contrast TECHNIQUE: CT of the chest was performed without contrast according to standard protocol. Clinical Information HISTORY: R91.8: Pulmonary nodules COMPARISON: CT chest from 12/01/2020 Findings Evaluation of visceral and vascular structures is degraded due to lack of intravenous contrast administration. Lines/Tubes: None. Lower neck and axillae: Normal. Mediastinum and Jesusita: No enlarged lymph nodes are present. There are atherosclerotic calcifications of the aorta and coronary arteries. Heart and Pericardium: The cardiac chambers are normal in size. No pericardial fluid or thickening is present. Lung Parenchyma, Airways, and Pleural Spaces: There is an 8 mm solid pulmonary nodule in the left lower lobe (series 4 image 65), unchanged since the prior exam. The previously reported 3.5 mm left upper lobe solid nodule is less prominent on today's exam (series 4 image 21). A 3 mm pulmonary nodule in the right upper lobe is unchanged. Biapical pleural scarring and paraseptal emphysema is unchanged. There is otherwise no pulmonary parenchymal or acute airway process. There is no pleural effusion or pneumothorax. Bones and Soft Tissue: The visible osseous structures are intact. Upper Abdomen: The visible upper abdominal viscera are unremarkable. Procedure Note Sha Jay MD - 06/22/2021 Procedure Information DATE: 06/22/2021 12:54 PM EXAMINATION: Computed tomography (CT) of the chest without contrast TECHNIQUE: CT of the chest was performed without contrast according to standard protocol. Clinical Information HISTORY: R91.8: Pulmonary nodules COMPARISON: CT chest from 12/01/2020 Findings Evaluation of visceral and vascular structures is degraded due to lackof intravenous contrast administration. Lines/Tubes: None. Lower neck and axillae: Normal. Mediastinum and Jesus[place]: No enlarged lymph nodes are present. There are atherosclerotic calcifications of the aorta and coronary arteries. Heart and Pericardium: The cardiac chambers are normal in size. No pericardial fluid or thickening is present. Lung Parenchyma, Airways, and Pleural Spaces: There is an 8 mm solid pulmonary nodule in the left lower lobe (series 4 image 65), unchanged since the prior exam. The previously reported 3.5mm left upper lobe solid nodule is less prominent on today's exam (series 4 image 21). A 3 mm pulmonary nodule in the right upper lobe is unchanged. Biapical pleural scarring and paraseptal emphysema is unchanged. Thereis otherwise no pulmonary parenchymal or acute airway process. There is no pleural effusion or pneumothorax. Bones and Soft Tissue: The visible osseous structures are intact. Upper Abdomen: The visible upper abdominal viscera are unremarkable. Impression: Stable 8 mm pulmonary nodule in the left lower lobe and 3 mm nodule inthe right upper lobe. Previously described 4 mm nodule in the left upperlobe is less prominent on today's exam. No new or enlarging nodules. Dictated by Masha Negron MD (college president). I, Dr. SHA JAY MD have personally reviewed and interpreted this examination/study. This report was electronically signed by SHA JAY MD on 06/22/2021 4:20 PM . Derek Johnson MD CT ORDERABLES documented in this encounter Visit Diagnoses Diagnosis Pulmonary nodules- Primary Other nonspecific abnormal finding of lung field Pulmonary nodules Other nonspecific abnormal finding of lung field documented in this encounter Care Teams Vocational Horticulture Instructor Relationship Specialty Start Date End Date Usha Henry MD [address] [place] [phone] PCP - General Family Medicine 09/19/19 documented as of this encounter
--- OUTSIDE RECORDS SUMMARY | 2024-07-20 06:44 | XMS_ITS | Encounter Summary ---
Author Organization [facility] Address [address] [place] [address] Care Team Providers Care Audit Consultant Name Role Phone Usha Henry MD Primary Care Provider [phone] Reason for Visit * Reason Comments Refill Request Encounter Details Date Type Department Care Team (Late st Contact Info) Description 08/03/2022 Refill [facility] [address], [address] [place], [place] [id number] Derek Johnson MD [address] [facility] 2L DIV OF PULM/[place] [address] Refill Request Social History Tobacco Use Types Packs/Day Years [...] encounter Miscellaneous Notes * Telephone Encounter - Jaylyn Rojo MA - 08/03/2022 2:10 PM GRAIN I FARMWORKER Refill Request Florencia Martinez DANII: 04/23/20 NOV due: Not Scheduled Qty Disp: 10.2 g # of refills: 3 Allergies: No Known Allergies Pended Medication Order: Requested Prescriptions Pending Prescriptions Disp Refills ??? Symbicort 160-4.5 MCG/ACT inhaler [Pharmacy Med Name: SYMBICORT 160/4.5MCG (120 ORAL INH)] 10.2g 3 Sig: INHALE 2 PUFFS BY MOUTH TWICE DAILY N I FARMWORKER documented in this encounter Plan of Treatment Not on file documented as of this encounter Visit Diagnoses Diagnosis Chronic obstructive pulmonary disease, unspecified COPD type (HCC) documented in this encounter Care Teams Audit Consultant Relationship Specialty Start Date End Date Usha Henry MD [address] [place] [phone] PCP - General Family Medicine 09/19/19 documented as of this encounter
--- OUTSIDE RECORDS SUMMARY | 2024-07-20 06:44 | XMS_ITS | Encounter Summary ---
Author Organization [facility] Address [address] [place] [address] Care Team Providers Care Plant Safety Engineer Name Role Phone Usha Henry MD Primary Care Provider [phone] Reason for Referral * Radiology Services (Routine) - Closed Specialty Diagnoses / Procedures Referred By Ronna crockett Referred To Contact CT Scan Diagnoses Pulmonary nodules Procedures CT CHEST WO CONTRAST Derek Johnson MD [address] [place] [address] 2L DIV OF PULM/[place] [address] [facility] [address] [facility] [place] [address] Referral ID Status Reason Start Date Expiration Date Visits Re quested Visits Authorized [id number] Closed 11/16/2022 12/16/2022 1 1 Reason for Visit * Radiology Services (Routine) - Closed Specialty Diagnoses / Procedures Referred By Ronna crockett Referred To Contact CT Scan Diagnoses Pulmonary nodules Procedures CT CHEST WO CONTRAST Derek Johnson MD [address] [place] [address] 2L DIV OF PULM/[place] [address] [facility] [address] [place] [address] Referral ID Status Reason Start Date Expiration Date Visits Re quested Visits Authorized [id number] Closed 11/16/2022 12/16/2022 1 1 Encounter Details Date Type Department Care Team (Latest Contact Info) Description 11/16/2022 2:33 PM CDT - 11/16/2022 11:59 PM CDT Hospital Encounter [facility] CAT SCAN [address] [place] [address] Derek Johnson MD [address] [facility] 2L DIV OF PULM/[place] [address] Discharge Disposition: Home or Self Care Social History Tobacco Use Types Packs/Day Years [...] on file documented as of this encounter Medications at Time of Discharge Medication Sig Dispensed Refills Start Date End Date alendronate (FOSAMAX) 70 MG tablet Take 70 mg by mouth every 7 days 12/06/2020 aspirin (ASPIRIN) 81 MG tablet Take 81 mg by mouth once daily calcium 500 MG tablet Take 500 mg by mouth once daily meclizine (ANTIVERT) 25 MG tablet TK 1 T PO TID PRF DIZZINESS 0 04/02/2019 Multiple Vitamins-Minerals (WOMENS MULTI VITAMIN & MINERAL) TABS Take 1 tablet by mouth once daily nicotine (NICODERM CQ) 7 MG/24HR patchIndications:Tobacc o abuse Apply 1 (one) patch to skin once daily 30 patch 6 12/20/2020 omeprazole (PRILOSEC) 20 MG capsule Take 20 mg by mouth once daily 07/29/2021 omeprazole EC (PRILOSEC OTC) 20 MG tablet Take 20 mg by mouth BID. 10/19/2017 pravastatin (PRAVACHOL) 40 MG tablet Take 1 tablet by mouth once daily 11/22/2018 sertraline (ZOLOFT) 50 MG tablet Take 50 mg by mouth once daily Spacer/Aero-Holding Chambers (AEROCHAMBER)Indication s:Chronic obstructive pulmonary disease, unspecified COPD type (HCC) Inhale by mouth as directed 1 Each 04/23/2020 Vitamin D, Cholecalciferol, 1000 UNITS Take 1,000 mg by mouth once daily vitamin D, ergocalciferol, (DRISDOL) 1.25 MG (41650 UT) capsule TK 1 C PO Q WK 03/02/2020 Symbicort 160-4.5 MCG/ACT inhalerIndications:Health Policy Nurse bren obstructive pulmonary disease, unspecified COPD type (HCC) INHALE 2 PUFFS BY MOUTH TWICE DAILY 10.2 g 3 08/04/2022 01/01/2023 documented as of this encounter Plan of Treatment Not on file documented as of this encounter Procedures Procedure Name Priority Date/Time Associated Diagnosis Comments CT CHEST WO CONTRAST Routine 11/16/2022 2:40 PM CDT Pulmonary nodules documented in this encounter Results * CT CHEST WO [...] in this encounter Visit Diagnoses Diagnosis Pulmonary nodules Other nonspecific abnormal finding of lung field documented in this encounter Care Teams Plant Safety Engineer Relationship Specialty Start Date End Date Usha Henry MD [address] [place] [phone] PCP - General Family Medicine 09/19/19 documented as of this encounter
--- OUTSIDE RECORDS SUMMARY | 2024-07-20 06:44 | XMS_ITS | Patient Health Summary ---
Author Organization [facility] [email or web address] Address [address] [facility] [place] [address] Care Team Providers Care Drug Safety Physician Name Role Phone Usha Henry MD Primary Care Provider [phone] [facility] from [facility],non-owned Affiliates and Associated Physician Practices is amultiple site organization consisting of ambulatory clinics and hospital sitesin [place], [place], [place] and [place]. This disclosure is being madepursuant to the Care Everywhere program and may not contain all information available regarding this patient. Last updated 18.[facility] Allergies No known active allergies Medications * Be aware that medications may not be up to date on this document. Alwaysverify current medications with the patient. * omeprazole EC (PRILOSEC OTC) 20 MG tablet(Started 10/19/2017) Take 20 mg by mouth BID. * Vitamin D, Cholecalciferol, 1000 UNITS Take 1,000 mg by mouth once daily * calcium 500 MG tablet Take 500 mg by mouth once daily * Multiple Vitamins-Minerals (WOMENS MULTI VITAMIN & MINERAL) TABS Take 1 tablet by mouth once daily * aspirin (ASPIRIN) 81 MG tablet Take 81 mg by mouth once daily * pravastatin (PRAVACHOL) 40 MG tablet(Started 11/22/2018) Take 1 tablet by mouth once daily * meclizine (ANTIVERT) 25 MG tablet(Started 04/02/2019) TK 1 T PO TID PRF DIZZINESS * vitamin D, ergocalciferol, (DRISDOL) 1.25 MG (05581 UT) capsule(Started 03/02/2020) TK 1 C PO Q WK * sertraline (ZOLOFT) 50 MG tablet Take 50 mg by mouth once daily * Spacer/Aero-Holding Chambers (AEROCHAMBER)(Started 04/23/2020) Inhale by mouth as directed * alendronate (FOSAMAX) 70 MG tablet(Started 12/06/2020) Take 70 mg by mouth every 7 days * nicotine (NICODERM CQ) 7 MG/24HR patch(Started 12/20/2020) Apply 1 (one) patch to skin once daily 6 refills by 12/20/2021 * omeprazole (PRILOSEC) 20 MG capsule(Started 07/29/2021) Take 20 mg by mouth once daily * Symbicort 160-4.5 MCG/ACT inhaler(Started 01/01/2023) INHALE 2 PUFFS BY MOUTH TWICE DAILY 3 refills by 01/01/2024 Active Problems Problem Noted Date Diagnosed Date Other emphysema 04/23/2020 Immunizations * Covid Pfizer primary monovalent 12+ yr 0.3mL Purple cap(Given 09/26/2020, 09/05/2020) * INFLUENZA VACCINE, HIGH-DOSE, QUADR. (FLUZONE HIGH-DOSE QUADRIVALENT; 65Y+), 0.7 ML (HD-IIV4)(Given 04/23/2020, 04/26/2018) * PNEUMOCOCCAL PPSV23(Given 04/23/2020) * Pneumococcal Pcv13 Conj(Given 04/26/2018) Social History Tobacco Use Types Packs/Day Years [...] Comments Blood Pressure 119/68 08/29/2021 10:44 AM DIRECT MARKETING MANAGER Pulse 78 08/29/2021 10:44 AM DIRECT MARKETING MANAGER Temperature 36.2 ??C (97.1 ??F) 08/29/2021 10:[address] Respiratory Rate 16 08/29/2021 10:44 AM DIRECT MARKETING MANAGER Oxygen Saturation 97% 08/29/2021 10:44 AM DIRECT MARKETING MANAGER Inhaled Oxygen Concentration - - Weight 76.2 kg (168 lb) 08/29/2021 10:44 AM DIRECT MARKETING MANAGER Height 162.6 cm (5' 4 ) 08/29/2021 10:44 AM DIRECT MARKETING MANAGER Body Mass Index 28.84 08/29/2021 10:44 AM DIRECT MARKETING MANAGER Procedures * CT CHEST WO CONTRAST(Performed 11/16/2022) Performed for Pulmonary nodules * CT CHEST WO CONTRAST(Performed 06/22/2021) Performed for Pulmonary nodules * PFT-LAB(Performed 12/01/2020) Performed for Chronic obstructive pulmonary disease, unspecified COPD type (HCC) * PFT OXYGEN DESATURATION STUDY(Performed 12/01/2020) Performed for Chronic obstructive pulmonary disease, unspecified COPD type (HCC) * CT CHEST WO CONTRAST(Performed 12/01/2020) Performed for Chronic obstructive pulmonary disease, unspecified COPD type (HCC), Pulmonary nodule * CT CHEST WO CONTRAST(Performed 04/16/2020) Performed for Lung nodule seen on imaging study * CT CHEST WO CONTRAST(Performed 10/02/2019) Performed for Lung nodule * URINALYSIS W/MICROSCOPIC NO CULTURE(Performed 04/18/2019) Performed for Microscopic hematuria * URINALYSIS AUTO - POINT OF CARE (AMB) [facility](Performed 04/18/2019) Performed for Microscopic hematuria * CT CHEST WO CONTRAST(Performed 12/12/2018) Performed for Lung nodule seen on imaging study, Smoking * COMPLETE PFT W/WO BRONCHODILATOR(Performed 02/27/2018) * PFT OXYGEN DESATURATION STUDY(Performed 02/27/2018) * SIX MINUTE WALK(Performed 02/27/2018) Results * CT CHEST WO CONTRAST (11/16/2022 2:40 PM CDT) Only the most recent of6 resultswithin the time period is included. Anatomical Region Laterality Modality Chest Computed Tomogra [...] 4:[address] ORDERABLES * COMPLETE PFT (12/01/2020 11:11 AM CDT) Impressions Jese Scott MD - 12/01/2020 11:11 AM CDT [facility] DEPARTMENT OF PULMONARY, CRITICAL CARE, AND SLEEP MEDICINE PULMONARY FUNCTION TEST Please see technologist's comments mentioned in the report. INTERPRETATION: SPIROMETRY: ?FVC: normal ?FEV1: normal ?FEV1/FVC ratio is normal. BRONCHODILATOR RESPONSE: There is no response to bronchodilator therapy however does not mean the patient wont benefit from bronchodilator therapy FLOW-VOLUME LOOPS: Normal flow-volume loops LUNG VOLUMES: Lung volumes by body plethysmography: TLC is normal, RV is increased, ERV is reduced DLCO: Unadjusted for Hb and COHb is increased DLCO: Corrected for Hb and COHb is: not able to perform AIRWAY RESISTANCE: The airway resistance is normal and the specific conductance is normal ARTERIAL BLOOD GAS ANALYSIS: not performed IMPRESSION: 1. ??Normal spirometry 2. ??Mild air trapping 3. ??No positive bronchodilator response, however this does not preclude the use of bronchodilators 4. ??Unadjusted DLCO is increased 5. ??Compared with previous study on 11/13/2017 DLCO has increased 3.78 mL/min/mmHg. FEV1, FVC, and TLC are not significantly changed. David Pate MD Pulmonary & Critical Care Fellow Division of Pulmonary, Critical Care and Sleep Medicine [facility] Pager: [phone] I have personally reviewed the pulmonary function test data and made adjustment to the interpretation where necessary. Jese Scott MD 12/06/2020 Narrative Jese Scott MD - 12/01/2020 11:11 AM CDT David Pate MD ? 12/01/2020 ??6:15 PM Derek Johnson MD RESPIRATORY THERAPY ORDERABLES * PFT OXYGEN DESATURATION STUDY (12/01/2020 11:10 AM CDT) Impressions Jsee Scott MD - 12/01/2020 11:10 AM CDT [facility] DEPARTMENT OF PULMONARY, CRITICAL CARE, AND SLEEP MEDICINE OXYGEN TITRATION STUDY Florencia Pisano Juan 12/01/2020 INTERPRETATION The test was performed on the treadmill at a speed of 1.5 mph at room air. ??The patient was able to complete 4 minutes with lowest SpO2 of 99%. Then the treadmill speed was increased to 2 mph, the patient's SpO2 dropped to 97% at minute 6 and oxygen saturation remained above 97% throughout the test. IMPRESSION 1. At the above level of activity the patient's oxygen saturation remained 97 % and above on room air. The patient did not have a significant oxygen desaturation while walking for a total of 8 minutes. David Pate MD Division of Pulmonary, Critical Care, & Sleep Medicine [facility] I have personally reviewed the pulmonary function test data and made adjustment to the interpretation where necessary. Jese Scott MD 12/06/2020 Narrative Jese Scott MD - 12/01/2020 11:10 AM CDT David Pate MD ? 12/01/2020 ??6:15 PM Derek Johnson MD PFT ORDERABLES * (ABNORMAL) URINALYSIS W/MICROSCOPIC NO CULTURE (04/18/2019 4:55 PM CDT) Color UA Straw Straw, Yellow, Colorless 04/18/2019 5:25 PM CDT [facility] Clarity UA Clear Clear, Slt Cloudy 04/18/2019 5:25 PM T [facility] Specific [place] UA 1.004(L) 1.005 - 1.030 04/18/2019 5:25 PM [facility] pH UA 7.0 5.0 - 8.0 pH 04/18/2019 5:25 PM [facility] Protein UA Negative Negative mg/dL 04/18/2019 5:25 PM [facility] Glucose UA Negative Negative mg/dL 04/18/2019 5:25 PM [facility] Ketone UA Negative Negative mg/dL 04/18/2019 5:25 PM T [facility] Bilirubin UA Negative Negative mg/dL 04/18/2019 5:25 PM [facility] Blood UA Negative Negative 04/18/2019 5:25 PM [facility] Nitrite UA Negative Negative 04/18/2019 5:25 PM [facility] Leukocyte Esterase Negative Negative 04/18/2019 5:25 PM [facility] Urobilinogen UA Negative Negative mg/dL 04/18/2019 5:25 PM [facility] RBC UA 0-2 None Seen, 0-2, 3-5 /HPF 04/18/2019 5:25 PM [facility] WBC UA None Seen None Seen, 0-5 /HPF 04/18/2019 5:25 PM [facility] Squamous Epithelial Cells UA 0-2 None Seen, 0-2 /HPF 04/18/2019 5:25 PM [facility] Urine URINE SPECIMEN OBTAINED BY CLEAN CATCH PROCEDURE / Unknown Collection / Unknown 04/18/2019 4:55 PM CDT 04/18/2019 5:14 PM CDT Narrative [facility] - 04/18/2019 5:25 PM CDT [facility] - URINALYSIS ORDERABLES [address] [phone] * URINALYSIS AUTO - POINT OF CARE (AMB) [facility] (04/18/2019 11:40 AM CDT) Glucose UA neg Bilirubin UA POCT neg Ketones UA POCT neg Specific [place] UA 1.010 Blood Urine POCT 10 pH UA 6.5 Protein UA neg Urobilinogen UA 3.5 Nitrite UA neg WBC UA neg Urine URINE / Unknown 04/18/2019 1 1:40 AM CDT Su Aiken [employer] SKILLS COACH-RIM ROLLER SETTER LAB - POINT OF C ARE ORDERABLES * COMPLETE PFT W/WO BRONCHODILATOR (02/27/2018 1:58 PM CDT) Impressions Anup Campa MD - 02/27/2018 1:58 PM CDT [facility] DEPARTMENT OF PULMONARY, CRITICAL CARE, AND SLEEP MEDICINE PULMONARY FUNCTION TESTS Florencia Juan 11/14/2017 INTERPRETATION Please see technologist's comments mentioned above. SPIROMETRY: Forced vital capacity is normal. FEV1 is normal. FEV1/FVC ratio is normal. There is no significant response to bronchodilator administration. The inspection of the patient's flow-volume loops shows normal configuration of the inspiratory limbs and mild scooping of the expiratory limbs. LUNG VOLUMES: Lung volumes by body plethysmography shows normal TLC and increased RV, decreased ERV. DLCO: Diffusing capacity unadjusted for Hb and COHb is within normal limits. AIRWAY RESISTANCE: The airway resistance and the specific conductance are normal. IMPRESSION: 1. Normal Spirometry. 2. There is no significant response to bronchodilator administration. ??This does not preclude the use of bronchodilator therapy if clinically indicated. 3. Moderate air trapping without hyperinflation. There is no previous study available for comparison. I have reviewed this study and agree with the interpretation by the Multiple Pressure Riveter Operator. Anup Campa M.D. Recreation Therapy Aides Teacher of Internal Medicine Division of Pulmonary, Critical Care and Sleep Medicine [employer] [facility] [employer] Narrative Anup Campa MD - 02/27/2018 1:58 PM CDT Ambrose Flores, DO ? 01/27/2018 11:10 AM Anup Garcia MD RESPIRATORY THERAPY ORDERABLES * PFT OXYGEN DESATURATION STUDY (02/27/2018 1:58 PM CDT) Impressions Anup Campa MD - 02/27/2018 1:58 PM CDT No evidence of desaturation noted. HR within normal limits. Overall normal study. Denilson Flores DO Pulmonary & Critical Care Fellow Division of Pulmonary, Critical Care and Sleep Medicine [facility] Pager: [phone] Narrative Anpu Campa MD - 02/27/2018 1:58 PM CDT Ambrose Flores, DO ? 01/27/2018 11:10 AM Anup Garcia MD PFT ORDERABLES * SIX MINUTE WALK (02/27/2018 1:58 PM CDT) Impressions Anup Campa MD - 02/27/2018 1:58 PM CDT 494 meters walked. No desaturation. Within normal limits Denilson Flores DO Pulmonary & Critical Care Fellow Division of Pulmonary, Critical Care and Sleep Medicine [facility] Pager: [phone] I have reviewed this study and agree with the interpretation by the Multiple Pressure Riveter Operator. Anup Campa M.D. Recreation Therapy Aides Teacher of Internal Medicine Division of Pulmonary, Critical Care and Sleep Medicine [facility] Narrative Anup Campa MD - 02/27/2018 1:58 PM CDT Ambrose Flores, DO ? 01/27/2018 11:09 AM Anup Garcia MD RESPIRATORY THERAPY ORDERABLES Care Teams Drug Safety Physician Relationship Specialty Start Date End Date Usha Henry MD [address] [place] [address] [phone] PCP - General Family Medicine 09/19/19
--- OUTSIDE RECORDS SUMMARY | 2024-07-20 06:44 | XMS_ITS | Encounter Summary ---
Author Organization [facility] Address [address] [place] [address] Care Team Providers Care Speech Clinician Name Role Phone Usha Henry MD Primary Care Provider [phone] Encounter Details Date Type Department Care Team (Latest Contact Info) Description 11/16/2022 Travel Social History Tobacco Use Types Packs/Day [...] on file documented as of this encounter Plan of Treatment Not on file documented as of this encounter Visit Diagnoses Not on filedocumented in this encounter Care Teams Speech Clinician Relationship Specialty Start Date End Date Usha Henry MD [address] [place] [phone] PCP - General Family Medicine 09/19/19 documented as of this encounter
--- OUTSIDE RECORDS SUMMARY | 2024-07-20 06:44 | XMS_ITS | Encounter Summary ---
Author Organization [facility] Address [address] [place] [address] Care Team Providers Care Continuous Improvement Analyst Name Role Phone Usha Henry MD Primary Care Provider [phone] Reason for Referral * Radiology Services (Routine) - Closed Specialty Diagnoses / Procedures Referred By Ronna crockett Referred To Contact CT Scan Diagnoses Pulmonary nodules Procedures CT CHEST WO CONTRAST Derek Johnson MD [address] [place] [address] 2L DIV OF PULM/[place] [address] [facility] [address] [facility] [place] [address] Referral ID Status Reason Start Date Expiration Date Visits Re quested Visits Authorized [id number] Closed 06/22/2021 07/22/2021 1 1 H DRILLER Reason for Visit * Radiology Services (Routine) - Closed Specialty Diagnoses / Procedures Referred By Ronna crockett Referred To Contact CT Scan Diagnoses Pulmonary nodules Procedures CT CHEST WO CONTRAST Derek Johnson MD [address] [place] [address] 2L DIV OF P[place] [address] [facility] [address] [place] [address] Referral ID Status Reason Start Date Expiration Date Visits Re quested Visits Authorized [id number] Closed 06/22/2021 07/22/2021 1 1 Encounter Details Date Type Department Care Team (Latest Contact Info) Description 06/22/2021 12:43 PM PATCH DRILLER - 06/22/2021 11:59 PM PATCH DRILLER Hospital Encounter [facility] CAT SCAN [address] [place] [address] Derek Johnson MD [address] [facility] 2L DIV OF PULM/[place] [address] Discharge Disposition: Home or Self Care Social [...] COVID-19? No / Unsure 06/22/2021 12:36 PM PATCH DRILLER documented as of this encounter Medications at [...] once daily 30 patch 6 12/20/2020 omeprazole EC (PRILOSEC OTC) 20 MG tablet [...] daily vitamin D, ergocalciferol, (DRISDOL) 1.25 MG (98028 UT) capsule TK 1 C PO Q WK 03/02/2020 albuterol HFA (VENTOLIN HFA) 108 (90 Base) MCG/ACT inhalerIndications:Cloth Covered Helmet Puller bren obstructive pulmonary disease, unspecified COPD type (HCC) Inhale 2 (two) puffs by mouth every 6 hours as needed for Shortness of Breath or Wheezing 1 Inhaler 12/20/2020 08/29/2021 budesonide-formoterol (SYMBICORT) 160-4.5 MCG/ACT inhalerIndications:Cloth Covered Helmet Puller bren obstructive pulmonary disease, unspecified COPD type (HCC) Inhale 2 (two) puffs by mouth 2 times daily 1 Inhaler 11 12/20/2020 08/29/2021 tiotropium (SPIRIVA RESPIMAT) 2.5 MCG/ACT inhalerIndications:Cloth Covered Helmet Puller bren obstructive pulmonary disease, unspecified COPD type (HCC) Inhale 2 (two) puffs by mouth once daily 1 Inhaler 11 12/20/2020 08/29/2021 documented as of this encounter Plan of Treatment Not on file documented as of this encounter Procedures Procedure Name Priority Date/Time Associated Diagnosis Comments CT CHEST WO CONTRAST Routine 06/22/2021 12:54 PM PATCH DRILLER Pulmonary nodules documented in this encounter Results * CT CHEST WO CONTRAST (06/22/2021 12:54 PM PATCH DRILLER) Anatomical Region Laterality Modality Chest Computed Tomogra phy 06/22/2021 2:23 PM PATCH DRILLER Impressions 06/22/2021 4:20 PM PATCH DRILLER Impression: Stable 8 mm pulmonary nodule in the left lower lobe and 3 mm nodule in the right upper lobe. Previously described 4 mm nodule in the left upper lobe is less prominent on today's exam. No new or enlarging nodules. Dictated by Masha Negron MD (residential fee appraiser). I, Dr. SHA JYA MD have personally reviewed and interpreted this examination/study. This report was electronically signed by SHA JAY MD ??on 06/22/2021 4:20 PM . Narrative 06/22/2021 4:20 PM PATCH DRILLER Procedure Information DATE: 06/22/2021 12:54 PM EXAMINATION: [...] enlarging nodules. Dictated by Masha Negron MD (residential fee appraiser). I, Dr. SHA JAY MD have personally reviewed and interpreted this examination/study. This report was electronically signed by SHA JAY MD on 06/22/2021 4:20 PM . Derek Johnson MD CT ORDERABLES documented in this encounter Visit Diagnoses Diagnosis Pulmonary nodules Other nonspecific abnormal finding of lung field documented in this encounter Care Teams Continuous Improvement Analyst Relationship Specialty Start Date End Date Usha Henry MD [address] [place] [phone] PCP - General Family Medicine 09/19/19 documented as of this encounter
--- OUTSIDE RECORDS SUMMARY | 2024-07-20 06:44 | XMS_ITS | Referral Summary ---
Author Organization [facility] Address [address] [facility] [place] [address] Care Team Providers Care Behavioral Health Worker Name Role Phone Usha Henry MD Primary Care Provider [phone] Source Comments [facility],non-owned Affiliates and Associated Physician Practices is amultiple site organization consisting of ambulatory clinics and hospital sitesin [place], [place], [place] and [place]. This disclosure is being madepursuant to the Care Everywhere program and may not contain all information available regarding this patient. Last updated 18.[facility] Allergies No known active allergies Medications * [...] Active vitamin D, ergocalciferol, (DRISDOL) 1.25 MG (80617 UT) capsule TK 1 C PO Q [...] 04/23/2020 Immunizations Name Administration Dates Next Due [employer] primary monoval ent 12+ yr 0.3mL Purple cap 09/26/2020,09/05/2020 INFLUENZA VACCINE, HIGH-DOSE , QUADR. (FLUZONE HIGH-DOSE QUADRIVALENT; 65Y+), 0.7 ML (HD-IIV4) 04/23/2020,04/26/2018 PNEUMOCOCCAL PPSV23 04/23/2020 Pneumococcal Pcv13 Conj 04/26/2018 Social History Tobacco Use Types Packs/Day Years [...] Comments Blood Pressure 119/68 08/29/2021 10:44 AM BEZEL CUTTER Pulse 78 08/29/2021 10:44 AM BEZEL CUTTER Temperature 36.2 ??C (97.1 ??F) 08/29/2021 10:[address] Respiratory Rate 16 08/29/2021 10:44 AM BEZEL CUTTER Oxygen Saturation 97% 08/29/2021 10:44 AM BEZEL CUTTER Inhaled Oxygen Concentration - - Weight 76.2 kg (168 lb) 08/29/2021 10:44 AM BEZEL CUTTER Height 162.6 cm (5' 4 ) 08/29/2021 10:44 AM BEZEL CUTTER Body Mass Index 28.84 08/29/2021 10:44 AM BEZEL CUTTER Plan of Treatment Not on file Care Teams Behavioral Health Worker Relationship Specialty Start Date End Date Usha Henry MD [address] [place] [phone] PCP - General Family Medicine 09/19/19
--- OUTSIDE RECORDS SUMMARY | 2024-07-20 06:44 | XMS_ITS | Encounter Summary ---
Author Organization [facility] Address [address] [place] [address] Care Team Providers Care Sales Correspondent Name Role Phone Usha Henry MD Primary Care Provider [phone] Reason for Visit * Reason Onset Date Comments Imaging 12/04/2022 Patient would li ke results of CT Scan discussed with her. Encounter Details Date Type Department Care Team (Late st Contact Info) Description 12/04/2022 Telephone [facility] - Pul[facility] [address], [facility] [address] [place] [address] Derek Johnson MD [address] [facility] 2L DIV OF PULM/[place] [address] Imaging (Patient would like results of CT Scan discussed with her.) Social History Tobacco Use Types Packs/Day Years [...] encounter Miscellaneous Notes * Telephone Encounter - Sandi Cobian - 12/04/2022 3:47 PM CDT Patient looking for the results of her CT scan. Please return the call. documented in this encounter Plan of Treatment Not on file documented as of this encounter Visit Diagnoses Not on filedocumented in this encounter Care Teams Sales Correspondent Relationship Specialty Start Date End Date Usha Henry MD [address] [place] [phone] PCP - General Family Medicine 09/19/19 documented as of this encounter
--- OUTSIDE RECORDS SUMMARY | 2024-07-20 06:44 | XMS_ITS | Encounter Summary ---
Author Organization [facility] Address [address] [place] [address] Care Team Providers Care Cushion Gum Applicator Name Role Phone Usha Henry MD Primary Care Provider [phone] Reason for Visit * Reason Comments Refill Request Encounter Details Date Type Department Care Team (Late st Contact Info) Description 03/24/2022 Refill [facility] [address], [address] [place], [place] [id number] Derek Johnson MD [address] [facility] 2L DIV OF PULM/[place] [address] Refill Request Social History Tobacco Use Types [...] encounter Miscellaneous Notes * Telephone Encounter - WaiAnthony nygreer - 03/27/2022 9:14 AM CDT NOV:06/26/22 DANII:08/29/21 RTC in 10 months Medication/Ointment: budesonide-formoterol (SYMBICORT) 160-4.5 MCG/ACT inhaler Disp Qty: 36G Refills Remainin Buck Carreno MA documented in this encounter Plan of Treatment Not on file documented as of this encounter Visit Diagnoses Diagnosis Chronic obstructive pulmonary disease, unspecified COPD type (HCC) documented in this encounter Care Teams Cushion Gum Applicator Relationship Specialty Start Date End Date Usha Henry MD [address] [place] [phone] PCP - General Family Medicine 09/19/19 documented as of this encounter
--- OUTSIDE RECORDS SUMMARY | 2024-07-20 06:44 | XMS_ITS | Encounter Summary ---
Author Organization [facility] Address [address] [facility] [place] [address] Care Team Providers Care Sap Developer Name Role Phone Usha Henry MD Primary Care Provider [phone] Reason for Visit * Reason Comments Refill Request Encounter Details Date Type Department Care Team (Late st Contact Info) Description 12/30/2022 Refill [facility] - Pul[facility] [address], [place] [place] [address] Derek Johnson MD [address] [facility] 2L DIV OF PULM/[place] [address] Refill Request Social History Tobacco Use Types [...] encounter Miscellaneous Notes * Telephone Encounter - Anthony Carrenogreer - 01/01/2023 9:34 AM CDT NOV:tbs DANII:08/29/21 RTC in 10 months Medication/Ointment: Symbicort 160-4.5 MCG/ACT inhaler Disp Qty: 10.2g Refills Remainin Buck Carreno Skiff Operator III Pulmonary Critical Care & Sleep Disorders documented in this encounter Plan of Treatment Not on file documented as of this encounter Visit Diagnoses Diagnosis Chronic obstructive pulmonary disease, unspecified COPD type (HCC) documented in this encounter Care Teams Sap Developer Relationship Specialty Start Date End Date Usha Henry MD [address] [place] [phone] PCP - General Family Medicine 09/19/19 documented as of this encounter
--- OUTSIDE RECORDS SUMMARY | 2024-07-20 06:44 | XMS_ITS | Encounter Summary ---
Author Organization [facility] Address [address] [place] [address] Care Team Providers Care Christmas Tree Contractor Name Role Phone Usha Henry MD Primary Care Provider [phone] Reason for Visit * Reason Comments Refill Request Encounter Details Date Type Department Care Team (Late st Contact Info) Description 04/26/2023 Refill [facility] - Pul[facility]ology [address], [place] [address] [place] [address] Derek Johnson MD [address] DIV OF PULM/[place] [address] Refill Request Social History Tobacco Use Types [...] (HCC) documented in this encounter Care Teams Christmas Tree Contractor Relationship Specialty Start Date End Date Usha Henry MD [address] [place] [phone] PCP - General Family Medicine 09/19/19 documented as of this encounter
--- OUTSIDE RECORDS SUMMARY | 2024-07-20 06:45 | XMS_ITS | Encounter Summary ---
Author Organization [facility] Address [address] [facility] [place] [address] Care Team Providers Care Mill Manager Name Role Phone Cory Tatum MD Primary Care Provider [phone] Reason for Visit * Radiology Services (Routine) - Closed Specialty Diagnoses / Procedures Referred By Ronna crockett Referred To Contact CT Scan Diagnoses Lung nodule seen on imaging study Smoking Procedures CT CHEST WO CONTRAST Anup Garcia MD [address] [place] [address] [place] [address] [facility] [address] [place] [address] Referral ID Status Reason Start Date Expiration Date Visits Re quested Visits Authorized [id number] Closed 12/05/2018 01/19/2019 2 2 Encounter Details Date Type Department Care Team (Late st Contact Info) Description 12/12/2018 4:13 PM CDT - 12/12/2018 11:59 PM CDT Hospital Encounter [facility] CAT SCAN [address] [place] [address] Anup Garcia MD [address] [place] [address] [place] [address] Discharge Disposition: Home or Self Care Social History Tobacco Use Types Packs/Day Years Used Date Smoking Tobacco: Every Day Cigarettes Smokeless Tobacco: Never Alcohol Use Standard Drinks/Week Comments No 0 (1 standard drink = 0.6 oz pur e alcohol) Sex and Gender Information Value Date Recorded Sex Assigned at Not on file Gender Identity Not on file Sexual Orientation Not on file documented as of this encounter Medications at Time of Discharge Medication Sig Dispensed Refills Start Date End Date aspirin (ASPIRIN) 81 MG tablet Take 81 mg by mouth once daily calcium 500 MG tablet Take 500 mg by mouth once daily Multiple Vitamins-Minerals (WOMENS MULTI VITAMIN & MINERAL) TABS Take 1 tablet by mouth once daily omeprazole EC (PRILOSEC OTC) 20 MG tablet Take 20 mg by mouth BID. 10/19/2017 pravastatin (PRAVACHOL) 40 MG tablet Take 1 tablet by mouth once daily 11/22/2018 Vitamin D, Cholecalciferol, 1000 UNITS Take 1,000 mg by mouth once daily ANORO ELLIPTA 62.5-25 MCG/INH inhaler INHALE 1 PUFF BY MOUTH DAILY 60 g 12/06/2018 01/10/2019 cefdinir (OMNICEF) 300 MG capsule 10/12/2017 04/18/2019 VENTOLIN HFA 108 (90 BASE) MCG/ACT inhaler INHALE 2 PUFFS BY MOUTH FOUR TIMES DAILY 18 g 4 09/26/2018 01/10/2019 documented as of this encounter Plan of Treatment Not on file documented as of this encounter Procedures Procedure Name Priority Date/Time Associated Diagnosis Comments CT CHEST WO CONTRAST Routine 12/12/2018 4:23 PM CDT Lung nodule seen on imaging study Smoking documented in this encounter Results * CT CHEST WO CONTRAST (12/12/2018 4:23 PM CDT) Anatomical Region Laterality Modality Chest Computed Tomogra phy 12/13/2018 8:14 AM CDT Impressions 12/13/2018 11:34 AM CDT IMPRESSION: Left lower lobe 9 mm solid nodule [...] then PET/CT or biopsy should be considered. Dictated by Meek Cook MD (dental resident). I, Dr. SELINA REECE M.D. have personally reviewed and interpreted this examination/study. This report was electronically signed by SELINA REECE M.D. ??on 12/13/2018 11:34 AM . Narrative 12/13/2018 11:34 AM CDT EXAMINATION: Computed tomography (CT) of the chest without contrast HISTORY: Left lower lobe nodule measuring 9 mm reportedly seen on outside hospital imaging and unchanged since September 2016, smoker TECHNIQUE: CT of the chest was performed without contrast according to standard protocol. COMPARISON: No prior study is available for comparison. FINDINGS: Evaluation of visceral and vascular structures is degraded due to lack of intravenous contrast administration. There is a left-sided three-vessel aortic arch. The aorta and main pulmonary arteries are normal in course and caliber. The coronary arteries and aorta are atherosclerotic. Paraseptal emphysema is present. The lungs are clear of focal consolidation. No pleural effusion or focal pleural thickening is identified. There is no evidence of pneumothorax. There is a 9 mm left lower lobe solid nodule (series 4, image 67). A 2 mm solid nodule is seen in the right upper lobe (series 4, image 25). These nodules cannot be compared with the prior outside CT as the images are not available at the time of this dictation. Aspirated debris is seen in the right lower lobe bronchi The heart size is normal. No pericardial effusion is present. No mediastinal, supraclavicular, or axillary lymphadenopathy is seen. The visible portions of the upper abdominal viscera are normal. Bone windows demonstrate no suspicious lytic or blastic lesions. The visible osseous structures are intact. Multilevel degenerative changes are noted in the spine. Procedure Note Selina Reece MD - 12/13/2018 EXAMINATION: Computed tomography (CT) of the chest without contrast HISTORY: Left lower lobe nod[facility] and unchanged since September 2016, smoker TECHNIQUE: CT of the chest was performed without contrast according to standard protocol. COMPARISON: No prior study is available for comparison. FINDINGS: Evaluation of visceral and vascular structures is degraded due to lackof intravenous contrast administration. There is a left-sided three-vessel aortic arch. The aorta and main pulmonary arteries are normal in course and caliber. The coronaryarteries and aorta are atherosclerotic. Paraseptal emphysema is present. The lungs are clear of focal consolidation. No pleural effusion or focal pleural thickening is identified. There is no evidence of pneumothorax. There is a 9 mm left lower lobe solid nodule (series 4, image 67). A 2 mm solid nodule isseen in the right upper lobe (series 4, image 25). These nodules cannot be compared with the prior outside CT as the images are not available atthe time of this dictation. Aspirated debris is seen in the right lower lobe bronchi The heart size is normal. No pericardial effusion is present. No mediastinal, supraclavicular, or axillary lymphadenopathy is seen. The visible portions of the upper abdominal viscera are normal. Bone windows demonstrate no suspicious lytic or blastic lesions. The visible osseous structures are intact. Multilevel degenerative changesare noted in the spine. IMPRESSION: Left lower lobe 9 mm solid nodule and right upper lobe 2 mm solidnodule. Comparison with prior outside imaging would be helpful to determine stability. If the 9 mm nodule has been stable since 2017, then it is likely benign and continued yearly follow-up would be advised. If the 9mm nodule is new or increased, then PET/CT or biopsy should be considered. Dictated by Meek Cook MD (dental resident). I, Dr. SELINA REECE M.D. have personally reviewed and interpretedthis examination/study. This report was electronically signed by SELINA REECE M.D. on 12/13/2018 11:34 AM . Anup Garcia MD CT ORDERABLES documented in this encounter Visit Diagnoses Diagnosis Lung nodule seen on imaging study Smoking Tobacco use disorder documented in this encounter Care Teams Mill Manager Relationship Specialty Start Date End Date Cory Tatum MD [address] [place] [address] [address] [place] [address] PCP - General 11/27/17 09/18/19 documented as of this encounter
--- OUTSIDE RECORDS SUMMARY | 2024-07-20 06:45 | XMS_ITS | Encounter Summary ---
Author Organization [facility] Address [address] [place] [address] Care Team Providers Care Fingerprinter Name Role Phone Usha Henry MD Primary Care Provider [phone] Encounter Details Date Type Department Care Team (Latest Contact Info) Description 04/01/2020 Travel Social History Tobacco Use Types Packs/Day [...] have Coronavirus / COVID-19? No / Unsure 04/01/2020 10:46 AM CDT documented as of this encounter Plan of Treatment Not on file documented as of this encounter Visit Diagnoses Not on filedocumented in this encounter Care Teams Fingerprinter Relationship Specialty Start Date End Date Usha Henry MD [address] [place] [phone] PCP - General Family Medicine 09/19/19 documented as of this encounter
--- OUTSIDE RECORDS SUMMARY | 2024-07-20 06:45 | XMS_ITS | Encounter Summary ---
Author Organization [facility] Address [address] [place] [address] Care Team Providers Care Hat Mender Name Role Phone Usha Henry MD Primary Care Provider Reason for Referral * Procedure (Routine) - Closed Specialty Diagnoses / Procedures Referred By Ronna crockett Referred To Contact Pulmonary Disease Diagnoses Chronic obstructive pulmonary disease, unspecified COPD type (HCC) Procedures COMPLETE PFT Derek Johnson MD [address] [facility] 2L DIV OF PULM/[place] [address] [facility] Pft [address] [place] [address] Referral ID Status Reason Start Date Expiration Date Visits Re quested Visits Authorized [id number] Closed 04/23/2020 04/23/2021 1 1 Reason for Visit * Procedure (Routine) - Closed Specialty Diagnoses / Procedures Referred By Ronna crockett Referred To Contact Pulmonary Disease Diagnoses Chronic obstructive pulmonary disease, unspecified COPD type (HCC) Procedures COMPLETE PFT Derek Johnson MD [address] [facility] 2L DIV OF PULM/[place] [address] [facility] [address]ft [address] [place] [address] Referral ID Status Reason Start Date Expiration Date Visits Re quested Visits Authorized [id number] Closed 04/23/2020 04/23/2021 1 1 Encounter Details Date Type Department Care Team (Latest Contact Info) Description 12/01/2020 9:34 AM CDT - 12/01/2020 11:59 PM CDT Hospital Encounter [facility] PFT [address] [place] [phone] Derek Johnson MD [address] [facility] 2L DIV OF PULM/[place] [address] Discharge Disposition: Home or Self Care Social [...] AM CDT documented as of this encounter Medications at [...] daily vitamin D, ergocalciferol, (DRISDOL) 1.25 MG (14271 UT) capsule TK 1 C PO Q WK 03/02/2020 omeprazole (PRILOSEC) 20 MG capsule TK 1 C PO D 03/10/2020 12/20/2020 Tiotropium [place]-Olodaterol (STIOLTO RESPIMAT) 2.5-2.5 MCG/ACTIndications:Residential Sales Rep bren obstructive pulmonary disease, unspecified COPD type (HCC) Inhale 2 puffs by mouth once daily 1 Inhaler 11 08/19/2020 12/20/2020 VENTOLIN HFA 108 (90 Base) MCG/ACT inhaler Inhale 2 (two) puffs by mouth every 6 hours as needed 1 Inhaler 11 08/11/2020 12/20/2020 documented as of this encounter Procedure Notes * David Pate MD - 12/01/2020 11:11 AM CDTAssociated Order(s): COMPLETE PFT Images from the original note were not included. * David Pate MD - 12/01/2020 11:10 AM CDTAssociated Order(s): PFT OXYGEN DESATURATION STUDY Images from the original note were not included. documented in this encounter Plan of Treatment Not on file documented as of this encounter Procedures Procedure Name Priority Date/Time Associated Diagnosis Comments PFT-LAB Routine 12/01/2020 11:11 AM CDT Chronic obstructive pulmonary disease, unspecified COPD type (HCC) PFT OXYGEN DESATURATION STUDY Routine 12/01/2020 11:10 AM CDT Chronic obstructive pulmonary disease, unspecified COPD type (HCC) documented in this encounter Results * COMPLETE PFT (12/01/2020 11:11 AM CDT) Jese Mcfarland MD - 12/01/2020 11:11 AM CDT [facility] DEPARTMENT OF PULMONARY, CRITICAL CARE, AND SLEEP [...] of Pulmonary, Critical Care and Sleep Medicine [facility] Pager: [phone] I have personally reviewed the pulmonary function test data and made adjustment to the interpretation where necessary. Jese Scott MD 12/06/2020 Narrative Jese Scott MD - 12/01/2020 11:11 AM CDT David Pate MD ? 12/01/2020 ??6:15 PM Derek Johnson MD RESPIRATORY THERAPY ORDERABLES * PFT OXYGEN DESATURATION STUDY (12/01/2020 11:10 AM CDT) Jese Mcfarland MD - 12/01/2020 11:10 AM CDT [facility] DEPARTMENT OF PULMONARY, CRITICAL CARE, AND SLEEP MEDICINE OXYGEN TITRATION STUDY Florencia Martinez 12/01/2020 INTERPRETATION The test was performed on [...] of Pulmonary, Critical Care, & Sleep Medicine [facility] I have personally reviewed the pulmonary function test data and made adjustment to the interpretation where necessary. Jese Scott MD 12/06/2020 Narrative Jese Scott MD - 12/01/2020 11:10 AM CDT David Pate MD ? 12/01/2020 ??6:15 PM Derek Johnson MD PFT ORDERABLES documented in this encounter Visit Diagnoses Diagnosis Chronic obstructive pulmonary disease, unspecified COPD type (HCC) documented in this encounter Care Teams Hat Mender Relationship Specialty Start Date End Date Usha Henry MD [address] [place] [phone] PCP - General Family Medicine 09/19/19 documented as of this encounter
--- OUTSIDE RECORDS SUMMARY | 2024-07-20 06:45 | XMS_ITS | Encounter Summary ---
Author Organization [facility] Address [address] [place] [address] Care Team Providers Care Surveyor Chain Helper Name Role Phone Cory Tatum MD Primary Care Provider [phone] Reason for Visit * Reason Onset Date Comments Results 04/21/2019 Encounter Details Date Type Department Care Team (Late st Contact Info) Description 04/21/2019 Telephone [facility] [address] [place], [place] [phone] Su Aiken APRN-CNP [address] [place] [phone] Results Social History Tobacco Use Types Packs/Day [...] encounter Miscellaneous Notes * Telephone Encounter - Su Aiken APRN-CNP - 04/21/2019 4:55 PM CDT LMOV[facility] informing pt of normal microscopic UA results- recommend follow up in 6 months for repeat Micro UA. Provided call back number for any further questions. CORTEZ Guzman 04/21/2019 4:56 PM documented in this encounter Plan of Treatment Not on file documented as of this encounter Visit Diagnoses Not on filedocumented in this encounter Care Teams Surveyor Chain Helper Relationship Specialty Start Date End Date Cory Tatum MD [address] [place] [id number] PCP - General 11/27/17 09/18/19 documented as of this encounter
--- OUTSIDE RECORDS SUMMARY | 2024-07-20 06:45 | XMS_ITS | Encounter Summary ---
Author Organization [facility] Address [address] [place] [address] Care Team Providers Care Bluing Oven Tender Name Role Phone Usha Henry MD Primary Care Provider [phone] Encounter Details Date Type Department Care Team (Latest Contact Info) Description 06/30/2020 Travel Social History Tobacco Use Types Packs/Day [...] or suspected to have Coronavirus / COVID-19? 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
--- OUTSIDE RECORDS SUMMARY | 2024-07-20 06:45 | XMS_ITS | Encounter Summary ---
Author Organization [facility] Address [address] [facility] [place] [address] Care Team Providers Care Pressure Tester Name Role Phone Usha Henry MD Primary Care Provider [phone] Reason for Visit * Reason Onset Date Comments Medication Issue 08/19/2020 Encounter Details Date Type Department Care Team (Late st Contact Info) Description 08/19/2020 Telephone [facility] Pul[facility], Critical Care and Sleep Medicine [address] [place] [address] Kellen Deal, pastoral worker Issue Social History Tobacco Use Types Packs/Day Years [...] encounter Miscellaneous Notes * Telephone Encounter - Kellen Deal, PUMA - 08/19/2020 2:28 PM ELECTRIC GOLF CART REPAIRER Daughter notified Stiolto RX sent to [facility]. Daughter confirmed. TRIC GOLF CART REPAIRER documented in this encounter Plan of Treatment Not on file documented as of this encounter Visit Diagnoses Not on filedocumented in this encounter Care Teams Pressure Tester Relationship Specialty Start Date End Date Usha Henry MD [address] [place] [phone] PCP - General Family Medicine 09/19/19 documented as of this encounter
--- OUTSIDE RECORDS SUMMARY | 2024-07-20 06:45 | XMS_ITS | Encounter Summary ---
Author Organization [facility] Address [address] [facility] [place] [address] Care Team Providers Care Foreign Car Mechanic Name Role Phone Usha Henry MD Primary Care Provider [phone] Reason for Referral * Radiology Services (Routine) - Closed Specialty Diagnoses / Procedures Referred By Contdeacon t Referred To Contact CT Scan Diagnoses Lung nodule Procedures CT CHEST WO CONTRAST Anup Garcia MD [address] [place] [address] [facility] [address] [place] [address] Referral ID Status Reason Start Date Expiration Date Visits Re quested Visits Authorized [id number] Closed 09/30/2019 11/01/2019 1 1 T GOODS MACHINE OPERATOR Reason for Visit * Reason Comments Follow-up Encounter Details Date Type Department Care Team (Late st Contact Info) Description 09/19/2019 9:20 AM SWEET GOODS MACHINE OPERATOR Office Visit [facility], Critical Care and [facility] Medicine [address] [place] [address] Anup Garcia MD [address] [place] [address] Lung nodule (Primary Dx) Social History Tobacco Use Types Packs/Day Years Used Date Smoking Tobacco: Every Day Cigarettes Smokeless Tobacco: Never Tobacco Cessation:Ready to Q uit: No; Counseling Given: No Comments:1 pack a week Alcohol Use Standard Drinks/Week Comments No 0 (1 standard drink = 0.6 oz pur e alcohol) Sex and Gender Information Value Date Recorded Sex Assigned at Not on file Gender Identity Not on file Sexual Orientation Not on file documented as of this encounter Last Filed Vital Signs Vital Sign Reading Time Taken Comments Blood Pressure - - Pulse 83 09/19/2019 9:25 AM SWEET GOODS MACHINE OPERATOR Temperature 36.4 ??C (97.6 ??F) 09/19/2019 9:25 AM CS T Respiratory Rate - - Oxygen Saturation 98% 09/19/2019 9:25 AM SWEET GOODS MACHINE OPERATOR Inhaled Oxygen Concentration - - Weight 73.9 kg (163 lb) 09/19/2019 9:25 AM SWEET GOODS MACHINE OPERATOR Height 162.6 cm (5' 4 ) 09/19/2019 9:25 AM SWEET GOODS MACHINE OPERATOR Body Mass Index 27.98 09/19/2019 9:25 AM SWEET GOODS MACHINE OPERATOR documented in this encounter Patient Instructions * Patient Instructions* Anup Garcia MD - 09/19/2019 10:02 AM SWEET GOODS MACHINE OPERATOR 1. CT scan of chest 2. Work on stopping to smoke T GOODS MACHINE OPERATOR documented in this encounter Progress Notes * Anup Garcia MD - 09/19/2019 10:07 AM CST Chief Complaint/Reason for Consult: Follow up of COPD and Lung Nodule Referring Physician: Cory Tatum MD [address] [place], [place] [phone] History of Present Illness: Florencia Martinez??is a 69 y.o.??female with past medical history significant for tobacco abuse, lung nodule, IBS, C diff, who presents to the clinic today for evaluation of COPD. Alleviated by rest, exacerbated by activity. Timing of symptoms is constant. Quality is dull, achy. Severity is moderate. Location is chest. Doing better with Anoro ellipta inhaler. In interim, still smoking. Recently had achest xray which reported to re-demonstrate LLL nodule. Past Medical History: 1. Emphysema as seen on imaging 2. Tobacco abuse 3. Hyperlipidemia 4. ?osteopenia vs osteoperosis 5. Uterine Fibroid 6. Eye Surgery 7. IBS 8. GERD 9. Right eye blindness since 10. History of C Diff 11. Lung nodule - LLL, seen back in 2017 Medications: Current Outpatient Medications Medication ??? aspirin (ASPIRIN) 81 MG tablet ??? calcium 500 MG tablet ??? meclizine (ANTIVERT) 25 MG tablet ? ? Multiple Vitamins-Minerals (WOMENS MULTI VITAMIN & MINERAL) TABS ??? omeprazole EC (PRILOSEC OTC) 20 MG tablet ??? pravastatin (PRAVACHOL) 40 MG tablet ??? umeclidinium-vilanterol (ANORO ELLIPTA) 62.5-25 MCG/INH inhaler ??? VENTOLIN HFA 108 (90 Base) MCG/ACT inhaler ??? Vitamin D, Cholecalciferol, 1000 UNITS No current facility-administered medications for this visit. Allergies: No Known Allergies Family History: COPD Social History: Social History Socioeconomic History ??? Marital status: Spouse name: Not on file ??? Number of children: Not on file ??? Years of education: Not on file ??? Highest education level: Not on file Occupational History ??? Not on file Social Needs ??? Financial resource strain: Not on file ??? Food insecurity Worry: Not on file Inability: Not on file ??? Transportation needs Medical: Not on file Non-medical: Not on file Tobacco Use ??? Smoking status: Current Every Day Smoker Packs/day: 0.50 ??? Smokeless tobacco: Never Used ??? Tobacco comment: 1 pack a week Substance and Sexual Activity ??? Alcohol use: No ??? Drug use: Yes Types: Marijuana Comment: occasional ??? Sexual activity: Not on file Lifestyle ??? Physical activity Days per week: Not on file Minutes per session: Not on file ??? Stress: Not on file Relationships ??? Social connections Talks on phone: Not on file Gets together: Not on file Attends congregation service: Not on file Active member of club or organization: Not on file Attends meetings of clubs or organizations: Not on file Relationship status: Not on file ??? Intimate partner violence Fear of current or ex partner: Not on file Emotionally abused: Not on file Physically abused: Not on file Forced sexual activity: Not on file Other Topics Concern ??? Not on file Social History Narrative ??? Not on file Review of Systems: CONSTITUTIONAL: No weight loss, fever, chills, weakness or fatigue. HEENT: Eyes: No visual loss, blurred vision, double vision or yellow sclerae. Ears, Nose, Throat: No hearing loss, sneezing, congestion, runny nose or sore throat. SKIN: No rash or itching. CARDIOVASCULAR: No chest pain, chest pressure or chest discomfort. No palpitations or edema. RESPIRATORY: No shortness of breath, cough or sputum. GASTROINTESTINAL: No anorexia, nausea, vomiting or diarrhea. No abdominal pain or blood. GENITOURINARY: No burning on urination NEUROLOGICAL: No headache, dizziness, syncope, paralysis, ataxia, numbness or tingling in the extremities. No change in bowel or bladder control. MUSCULOSKELETAL: No muscle, back pain, joint pain or stiffness. HEMATOLOGIC: No anemia, bleeding or bruising. LYMPHATICS: No enlarged nodes. No history of splenectomy. PSYCHIATRIC: No history of depression or anxiety. ENDOCRINOLOGIC: No reports of sweating, cold or heat intolerance. No polyuria or polydipsia. ALLERGIES: No history of asthma, hives, eczema or rhinitis. Physical Exam: Vitals: 09/19/19 0925 Pulse: 83 Temp: 97.6 ??F (36.4 ??C) SpO2: 98% Weight: 163 lb (73.9 kg) Height: 5' 4 (1.626 m) General: comfortable, NAD HEENT: MMM Lungs: clear Cardiac: rrr Abdomen: non distended Ext: no c/c/e Neuro: a /o x 3 Psych: friendly , appropriate Data: PFT 02/2018: IMPRESSION: 1. Normal Spirometry. 2. There is no significant response to bronchodilator administration. ??This does not preclude the use of bronchodilator therapy if clinically indicated. 3. Moderate air trapping without hyperinflation. Imaging: Per outside hospital reports: Ct chest 10/26/16 [...] it was stable ? CT chest 12/12/18: At [facility] IMPRESSION: ?? Left lower lobe 9 mm solid nodule and right upper lobe 2 mm solid nodule. Comparison with prior outside imaging would be helpful to determine stability. If the 9 mm nodule has been stable since 2016, then it is likely benign and continued yearly follow-up would be advised. If the 9 mm nodule is new or increased, then PET/CT or biopsy should be considered. CXR: done this past week at [facility]SH - reported to have LLL nodule. Recommend CT scan for better characterization. Assessment and Plan: 1. COPD - continue Anoro - MUST STOP SMOKING ?? 2. Tobacco abuse - cessation strongly encouraged - advised that patient increasing risk of cancer by continued smoking - discussed ways to quit ?? 3. Pulmonary Nodule - Seen in left lower lobe September [address], and reported at 9 mm - PET scan to follow in October 2016 with no increased uptake - September 2017 CT scan showed 9 mm pulmonary nodule in LLL - Chest Ct 11/2018 at [facility] with 9 mm left lower lobe pulmonary nodule (now stable in size since September2016) and 2 mm RUL nodule - due for repeat CT scan now , order placed ,importance of follow up explained. Patient and daughter express understanding - explained that continued smoking will place patient at much higher risk of developing cancer as compared to a non smoker Follow up after imaging Thank you for this consult. Please call if there are any questions or concerns. Anup Garcia MD [facility] Home Health Managerrecycling director, Division of Pulmonary, Critical Care, and Sleep Medicine T GOODS MACHINE OPERATOR documented in this encounter Plan of Treatment Not on file documented as of this encounter Results * CT CHEST WO CONTRAST (10/02/2019 3:38 PM SWEET GOODS MACHINE OPERATOR) Anatomical Region Laterality Modality Chest Computed Tomogra phy 10/02/2019 4:31 PM SWEET GOODS MACHINE OPERATOR Impressions 10/03/2019 4:32 PM SWEET GOODS MACHINE OPERATOR IMPRESSION: 1.Unchanged appearance of pulmonary nodules measuring up to 9 mm, stable since prior exam. Recommend follow-up CT in 6-12 months. Report dictated by Daniel Ramos MD (radiology rn) Dr. Mary Fuentes M.D. have personally reviewed and interpreted this examination/study. This report was electronically signed by Mary OTTO M.D. ??on 10/03/2019 4:32 PM . Narrative 10/03/2019 4:32 PM SWEET GOODS MACHINE OPERATOR EXAMINATION: Computed tomography (CT) of the chest without contrast HISTORY: R91.1: Lung nodule TECHNIQUE: CT of the chest was performed without contrast according to standard protocol. COMPARISON: CT chest 12/12/2018 FINDINGS: Evaluation of visceral and vascular structures is degraded due to lack of intravenous contrast administration. The main pulmonary artery is normal in caliber. The aorta is atherosclerotic but normal in caliber. There is paraseptal emphysema. The lungs are clear of focal consolidation. No pleural effusion or focal pleural thickening is identified. There is no evidence of pneumothorax. There is a 9 mm left lower lobe pulmonary nodule (series 4 image 65), and is unchanged compared to prior study. The 2 mm right upper lobe pulmonary nodule is also unchanged (series 4 image 20). The trachea is patent and midline. The heart size is normal. No pericardial effusion is present. No mediastinal, supraclavicular, or axillary lymphadenopathy is seen. The visible portions of the liver, gallbladder, spleen, pancreas, adrenal glands, kidneys, stomach, and bowel are normal. Bone windows demonstrate no suspicious lytic or blastic lesions. The visible osseous structures are intact. Procedure Note Isatu Otto MD - 10/03/2019 EXAMINATION: Computed tomography (CT) of the chest without contrast HISTORY: R91.1: Lung nodule TECHNIQUE: CT of the chest was performed without contrast according to standard protocol. COMPARISON: CT chest 12/12/2018 FINDINGS: Evaluation of visceral and vascular structures is degraded due to lackof intravenous contrast administration. The main pulmonary artery is normal in caliber. The aorta is atherosclerotic but normal in caliber. There is paraseptal emphysema. The lungs are clear of focalconsolidation. No pleural effusion or focal pleural thickening is identified. There isno evidence of pneumothorax. There is a 9 mm left lower lobe pulmonarynodule (series 4 image 65), and is unchanged compared to prior study. The 2 mm right upper lobe pulmonary nodule is also unchanged (series 4 image 20). The trachea is patent and midline. The heart size is normal. No pericardial effusion is present. No mediastinal, supraclavicular, or axillary lymphadenopathy is seen. The visible portions of the liver, gallbladder, spleen, pancreas,adrenal glands, kidneys, stomach, and bowel are normal. Bone windows demonstrate no suspicious lytic or blastic lesions. The visible osseous structures are intact. IMPRESSION: 1.Unchanged appearance of pulmonary nodules measuring up to 9 mm, stable since prior exam. Recommend follow-up CT in 6-12 months. Report dictated by Daniel Ramos MD (radiology rn) IDr. Mary M.D. have personally reviewed and interpretedthis examination/study. This report was electronically signed by Mary OTTO M.D. on 10/03/2019 4:32 PM . Anup Garcia MD CT ORDERABLES documented in this encounter Visit Diagnoses Diagnosis Lung nodule- Primary Solitary pulmonary nodule Lung nodule Solitary pulmonary nodule documented in this encounter Care Teams Foreign Car Mechanic Relationship Specialty Start Date End Date Usha Henry MD [address] [place] [phone] PCP - General Family Medicine 09/19/19 documented as of this encounter
--- OUTSIDE RECORDS SUMMARY | 2024-07-20 06:45 | XMS_ITS | Encounter Summary ---
Author Organization [facility] Address [address] [place] [address] Care Team Providers Care Portable Feed Mill Operator Name Role Phone Cory Tatum MD Primary Care Provider [phone] Reason for Visit * Reason Comments Establish Care Blood in Urine Encounter Details Date Type Department Care Team (Late st Contact Info) Description 04/18/2019 11:00 AM CDT Office Visit [facility] [address] [place] [address] Su Aiken APRNMEDICAL ART THERAPIST [address] [place] [phone] Microscopic hematuria (Primary Dx); Mixed stress and urge urinary incontinence Social History Tobacco Use Types Packs/Day Years [...] Sign Reading Time Taken Comments Blood Pressure 134/89 04/18/2019 11:21 AM CDT Pulse 84 04/18/2019 11:21 AM CDT Temperature 36.7 ??C (98.1 ??F) 04/18/2019 11:21 AM C DT Respiratory Rate 20 04/18/2019 11:21 AM CDT Oxygen Saturation 98% 04/18/2019 11:21 AM CDT Inhaled Oxygen Concentration - - Weight 73.5 kg (162 lb) 04/18/2019 11:21 AM CDT Height 163.8 cm (5' 4.5 ) 04/18/2019 11:21 AM CD T Body Mass Index 27.38 04/18/2019 11:21 AM CDT documented in this encounter Patient Instructions * Patient Instructions* Su Aiken APRN-CNP - 04/18/2019 12:08 PM CDT Patient Education Hematuria WHAT YOU NEED TO KNOW: What is hematuria? Hematuria is blood in your urine. Your urine may be bright red to dark brown. What other signs and symptoms might I have with hematuria? ?? Fever ?? Nausea and vomiting ?? Pain or bruising on your lower back or sides ?? Pain when you urinate ?? More urination than usual, or the need to urinate right away What causes hematuria? Ask your healthcare provider for more information about these and other causes of hematuria: ?? Urinary tract infection ?? Kidney or bladder stones ?? Swollen prostate ?? Kidney disease ?? Abdomen or pelvic injury ?? Kidney, bladder, or prostate cancer ?? Intense exercise How is hematuria diagnosed? Your healthcare provider will ask when you first saw a change in the color of your urine. Tell him about any medical conditions or medicines you take. Some medicines can damage your kidneys or increase your risk for bleeding. You may need any of the following: ?? Blood and urine tests may show infection and how well your kidneys are working. ?? An x-ray, ultrasound, or CT may show the cause of your hematuria. You may be given contrast liquid to help your urinary tract show up better in the pictures. Tell the healthcare provider if you have ever had an allergic reaction to contrast liquid. How is hematuria treated? Hematuria may go away without treatment. You may need medicines to treat an infection. Treatment depends on the cause of your hematuria. Ask your healthcare provider for more information about the treatment you may need. How can I manage my symptoms? Drink liquids as directed. You may need to drink extra liquids to help flush the blood from your body through your urine. Water is the best liquid to drink. Ask how muchliquid to drink each day and which liquids are best for you. When should I seek immediate care? ?? You have blood in your urine after a new injury, such as a fall. ?? You are urinating very small amounts or not at all. ?? You feel like you cannot empty your bladder. ?? You have severe back or side pain that does not go away with treatment. When should I contact my healthcare provider? ?? You have a fever that gets worse or does not go away with treatment. ?? You cannot keep liquids or medicines down. ?? Your urine gets darker, even after you drink extra liquids. ?? You have questions or concerns about your condition, treatment, or care. CARE AGREEMENT: You have the right to help plan your care. Learn about your health condition and how it may be treated. Discuss treatment options with your healthcare providers to decide what care you want to receive. You always have the right to refuse treatment. The above information is an director medicaid only. It is not intended as medical advice for individual conditions or treatments. Talk to your doctor, nurse or pharmacist before following any medical regimen to see if it is safe and effective for you. ?? Copyright Edictive 2019 Information is for End User's use only and may not be sold, redistributed or otherwise used for commercial purposes. All illustrations and images included in CareNotes?? are the copyrighted property of [employer] or [employer] Patient Education Urinary Incontinence FATS AND OILS LOADER: Urinary incontinence (UI) is when you lose control of your bladder. UI develops because your bladder cannot store or empty urine properly. The 3 most common types of UI are stress incontinence, urge incontinence, or both. Common symptoms include the following: ?? You feel like your bladder does not empty completely when you urinate. ?? You urinate often and need to urinate immediately. ?? You leak urine when you sleep, or you wake up with the urge to urinate. ?? You leak urine when you cough, sneeze, exercise, or laugh. Call your doctor if: ?? You have severe pain. ?? You are confused or cannot think clearly. ?? You have a fever. ?? You see blood in your urine. ?? You have pain when you urinate. ?? You have new or worse pain, even after treatment. ?? Your mouth feels dry or you have vision changes. ?? Your urine is cloudy or smells bad. ?? You have questions or concerns about your condition or care. Medicines: ?? Medicines may be given to help strengthen your bladder control. ?? Take your medicine as directed. Contact your healthcare provider if you think your medicine is not helping or if you have side effects. Tell him or her if you are allergic to any medicine. Keep a list of the medicines, vitamins, and herbs you take. Include the amounts, and when and why you take them. Bring the list or the pill bottles to follow-up visits. Carry your medicine list with you in case of an emergency. Do pelvic muscle exercises often: Your pelvic muscles help you stop urinating. Squeeze these muscles tight for 5 seconds, then relax for 5 seconds. Gradually work up to squeezing for 10 seconds. Do 3sets of 15 repetitions a day, or as directed. This will help strengthen your pelvic muscles and improve bladder control. Train your bladder: Go to the bathroom at set times, such as every 2 hours, even if you do not feelthe urge to go. You can also try to hold your urine when you feel the urge to go. For example, holdyour urine for 5 minutes when you feel the urge to go. As that becomes easier, hold your urine for 10 minutes. Self-care: ?? Keep a UI record. Write down how often you leak urine and how much you leak. Make a note of whatyou were doing when you leaked urine. ?? Drink liquids as directed. Ask your healthcare provider how much liquid to drink each day and which liquids are best for you. You may need to limit the amount of liquid you drink to help control your urine leakage. Do not drink any liquid right before you go to bed. Limit or do not have drinks that contain caffeine or alcohol. ?? Prevent constipation. Eat a variety of high-fiber foods. Good examples are high-fiber cereals, beans, vegetables, and whole-grain breads. Prune juice may help make your bowel movement softer. Walking is the best way to trigger your intestines to have a bowel movement. ?? Exercise regularly and maintain a healthy weight. Ask your healthcare provider how much you should weigh and about the best exercise plan for you. Weight loss and exercise will decrease pressure on your bladder and help you control your leakage. Ask him or her to help you create a weight loss plan if you are overweight. ?? Use a catheter as directed to help empty your bladder. A catheter is a tiny, plastic tube that is put into your bladder to drain your urine. Your healthcare provider may tell you to use a catheterto prevent your bladder from getting too full and leaking urine. ?? Go to behavior therapy as directed. Behavior therapy may be used to help you learn to control your urge to urinate. Follow up with your healthcare provider as directed: Write down your questions so you remember to ask them during your visits. ?? Copyright Edictive 2019 Information is for End User's use only and may not be sold, redistributed or otherwise used for commercial purposes. All illustrations and images included in CareNotes?? are the copyrighted property of [employer] or [employer] The above information is an director medicaid only. It is not intended as medical advice for individual conditions or treatments. Talk to your doctor, nurse or pharmacist before following any medical regimen to see if it is safe and effective for you. Patient Education Kegel Exercises for Women WHAT YOU NEED TO KNOW: What are Kegel exercises? Kegel exercises help strengthen your pelvic muscles. Pelvic muscles hold your pelvic organs, such as your bladder and uterus, in place. Kegel exercises help prevent or control problems with urine incontinence (leakage). Incontinence may be caused by , childbirth, or menopause. How will I know I am using the correct muscles? Pelvic muscles are the muscles you use to control urine flow. To target these muscles, stop and start the flow of urine several times. This will help you become familiar with how it feels to tighten and relax these muscles. How should I do Kegel exercises? ?? Empty your bladder. You may lie down, stand up, or sit down to do these exercises. When you first try to do these exercises, it may be easier if you lie down. Tighten or squeeze your pelvic muscles slowly. It may feel like you are trying to hold back urine or gas. Hold this position for 3 seconds. Relax for 3 seconds. Repeat this cycle 10 times. ?? Do 10 sets of Kegel exercises, at least 3 times a day. Do not hold your breath when you do Kegelexercises. Keep your stomach, back, and leg muscles relaxed. ?? As your muscles get stronger, you will be able to hold the squeeze longer. Your healthcare provider may ask that you increase your pelvic muscle squeeze to 10 seconds. After you squeeze for 10 seconds, relax for 10 seconds. What else should I know? ?? Once you know how to do Kegel exercises, use different positions. This will help to strengthen your pelvic muscles as much as possible. You can do these exercises while you lie on the floor, watchTV, or while you stand. ?? You may notice improved bladder control within about 6 weeks. ?? Tighten your pelvic muscles before you sneeze, cough, or lift to prevent urine leakage. When should I contact my healthcare provider? ?? You cannot feel your pelvic muscles tighten or relax. ?? You continue to leak urine. ?? You have questions or concerns about your condition or care. CARE AGREEMENT: You have the right to help plan your care. Learn about your health condition and how it may be treated. Discuss treatment options with your healthcare providers to decide what care you want to receive. You always have the right to refuse treatment. The above information is an director medicaid only. It is not intended as medical advice for individual conditions or treatments. Talk to your doctor, nurse or pharmacist before following any medical regimen to see if it is safe and effective for you. ?? Copyright Edictive 2019 Information is for End User's use only and may not be sold, redistributed or otherwise used for commercial purposes. All illustrations and images included in CareNotes?? are the copyrighted property of [employer] or [employer] documented in this encounter Progress Notes * Su Aiken APRN-CNP - 04/18/2019 1:01 PM CDT [facility] Division of Urologic Surgery CORTEZ Guzman Date of Visit: 04/18/2019 Patient Name: Florencia Martinez : 1950 Medical Record: [id number] Contact (home) Age: [age] year old Sex: female Referring Physician: Cory Tatum MD [address] [place], [place] [id number] Chief Complaint: Hematuria History of Present Illness: The patient is a 68 year old female for new evaluation and treatment of complaints of hematuria. Ptwas not able to visually see the blood in the urine; but was recently told by her PCP that she had microscopic blood in her urine. Pt does not have a history of trauma. Pt is currently on medicationsthat would impact blood clotting- daily Aspirin 81 mg. Pt does not have a history of congential kidney malformations. Pt does not have a history of kidney stones. Pt is a current smoker. Pt does not have associated dysuria with these symptoms. Pt does not have a history of recurrent uti. Pt denies family history of genitourinary malignancy. Pt has a h/o urinary incontinence, primarily associated with coughing. She does experience some Frequency/urgency as well. Symptoms have been present and bothersome for approx 1 year. Has recently started decreasing her caffeine intake and has had some improvement in symptoms. Past Medical History; Past Medical History: Diagnosis Date ??? Emphysema of lung ??? Fibroids uterine ??? Hypertension Past Surgical History: No past surgical history on file. Current Medications: Current Outpatient Medications Medication Sig Dispense Refill ??? aspirin (ASPIRIN) 81 MG tablet Take 81 mg by mouth once daily ??? calcium 500 MG tablet Take 500 mg by mouth once daily ??? meclizine (ANTIVERT) 25 MG tablet TK 1 T PO TID PRF DIZZINESS 0 ? ? Multiple Vitamins-Minerals (WOMENS MULTI VITAMIN & MINERAL) TABS Take 1 tablet by mouth once daily ??? omeprazole EC (PRILOSEC OTC) 20 MG tablet Take 20 mg by mouth BID. ??? pravastatin (PRAVACHOL) 40 MG tablet Take 1 tablet by mouth once daily ??? umeclidinium-vilanterol (ANORO ELLIPTA) 62.5-25 MCG/INH inhaler Inhale 1 puff by mouth once daily 60 g 11 ??? VENTOLIN HFA 108 (90 Base) MCG/ACT inhaler Inhale 2 puffs by mouth every 6 hours as needed 1 Inhaler 11 ??? Vitamin D, Cholecalciferol, 1000 UNITS Take 1,000 mg by mouth once daily No current facility-administered medications for this visit. Allergies; Patient has no known allergies. Family History: No family history on file. Social History: Social History Socioeconomic History ??? Marital status: Spouse name: Not on file ??? Number of children: Not on file ??? Years of education: Not on file ??? Highest education level: Not on file Occupational History ??? Not on file Social Needs ??? Financial resource strain: Not on file ??? Food insecurity: Worry: Not on file Inability: Not on file ??? Transportation needs: Medical: Not on file Non-medical: Not on file Tobacco Use ??? Smoking status: Current Every Day Smoker Packs/day: 0.50 ??? Smokeless tobacco: Never Used ??? Tobacco comment: 1 pack a week Substance and Sexual Activity ??? Alcohol use: No ??? Drug use: Yes Types: Marijuana Comment: occasional ??? Sexual activity: Not on file Lifestyle ??? Physical activity: Days per week: Not on file Minutes per session: Not on file ??? Stress: Not on file Relationships ??? Social connections: Talks on phone: Not on file Gets together: Not on file Attends yarsani service: Not on file Active member of club or organization: Not on file Attends meetings of clubs or organizations: Not on file Relationship status: Not on file ??? Intimate partner violence: Fear of current or ex partner: Not on file Emotionally abused: Not on file Physically abused: Not on file Forced sexual activity: Not on file Other Topics Concern ??? Not on file Social History Narrative ??? Not on file Review of Systems Constitutional: Positive for fatigue. Negative for appetite change, chills and unexpected weight change. HENT: Positive for tinnitus. Respiratory: Positive for cough, shortness of breath and wheezing. Cardiovascular: Negative for chest pain and palpitations. Gastrointestinal: Negative for abdominal pain, nausea and vomiting. Genitourinary: Positive for frequency, hematuria (Microscopic; no gross hematuria), pelvic pain andurgency. Negative for dysuria. Neurological: Positive for dizziness and numbness. Hematological: Bruises/bleeds easily. Psychiatric/Behavioral: Negative for suicidal ideas. The patient is not nervous/anxious. A 10-point ROS was reviewed during this clinic visit. Pertinent positive/negative systems are noted above Physical Exam: Vital Signs: BP 134/89 (BP SITE: LEFT ARM) Pulse 84 Temp 98.1 ??F (36.7 ??C) (Oral) Resp 20 Ht 5' 4.5 (1.638 m)Wt 162 lb (73.5 kg) SpO2 98% BMI 27.38 kg/m2 Gen - WN, WD female in NAD HEENT - NC/AT, EOMI Chest - normal respiratory rate and effort CV - RRR Abd - soft, NT, nondistended Back - no cvat Ext - no c/c/e Skin - no rash/erythema noted, good skin turgor Imaging (images and reports reviewed): No pertinent imaging Laboratory Studies: Office Visit on 04/18/19 URINALYSIS AUTO - POINT OF CARE (AMB) [facility] Result Value Ref Range Glucose UA neg Bilirubin UA POCT neg Ketones UA POCT neg Specific [place] UA 1.010 Blood Urine POCT 10 pH UA 6.5 Protein UA neg Urobilinogen UA 3.5 Nitrite UA neg WBC UA neg Microbiology: No cultures Pathology: No pertinent pathology Diagnosis: 68 y/o female with microscopic hematuria and mixed urinary incontinence Recommendations: Hematuria: We discussed the diagnosis of hematuria with specific references to increased risk status (such as smoking, industrial exposures, and family history). The patient had understanding of the diagnosis and was given opportunities to ask questions throughout the clinic visit. We discussed the general workup for hematuria including urinalysis, upper tract abdominal imaging (CT with/without contrast or US for lower risk patients), and lower tract visualization (cystoscopy). Per AUA guidelines: Asymptomatic microhematuria (AMH) is defined as three or greater red blood cells (RBC) per high powered field (HPF) on a properly collected urinary specimen in the absence of an obvious benign cause. A positive dipstick does not define AMH, and evaluation should be based solely on findings from microscopic examination of urinary sediment and not on a dipstick reading. A positive dipstick reading merits microscopic examination to confirm or refute the diagnosis of AMH. Pt did not have any records of microscopic UA's. She had trace blood today on UA, will send for microscopic analysis. Mixed Urinary Incontinence: Some behavorial management offered today: elimination of bladder irritants-caffeine, artificial sweeteners, citrus, tomatoes; fluid management; limit caffeine mid afternoon, pelvic floor therapy such as Kegels. We recommend the following kegel exercise regimen to help with your urinary symptoms. These involvesqueezing the pelvic floor as if you were stopping your urinary flow. You should do 3 sets of 30 squeezes as outlined below. 10 squeeze/release as fast as possible (to work on speed of use) 10 squeeze and hold for a count of ten (to work on strength) 10 squeeze/release as fast as possible You may repeat this more than 3x/day if you desire. Offered trial of anticholinergic to pt. She declined medical therapy at this time. Will call pt with results of Microscopic UA and discuss further recommendations at that time. 20 minutes were spent with patient. >50% were spent counseling patient. Patient's questions were answered and patient agrees with plan. CORTEZ Guzman 04/18/2019 1:46 PM documented in this encounter Plan of Treatment Not on file documented as of this encounter Procedures Procedure Name Priority Date/Time Associated Diagnosis Comments URINALYSIS AUTO - POINT OF CARE (AMB) [facility] Routine 04/18/2019 11:40 AM CDT Microscopic hematuria documented in this encounter Results * (ABNORMAL) URINALYSIS W/MICROSCOPIC NO CULTURE (04/18/2019 4:55 PM CDT) Color UA Straw Straw, Yellow, Colorless 04/18/2019 5:25 PM CDT [facility] Clarity UA Clear Clear, Slt Cloudy 04/18/2019 5:25 PM CDT [facility] Specific [place]ford UA 1.004(L) 1.005 - 1.030 04/18/2019 5:25 PM CDT [facility] pH UA 7.0 5.0 - 8.0 pH 04/18/2019 5:25 PM CDT [facility] Protein UA Negative Negative mg/dL 04/18/2019 5:25 PM CDT [facility] Glucose UA Negative Negative mg/dL 04/18/2019 5:25 PM CDT [facility] Ketone UA Negative Negative mg/dL 04/18/2019 5:25 PM CDT [facility] Bilirubin UA Negative Negative mg/dL 04/18/2019 5:25 PM CDT [facility] Blood UA Negative Negative 04/18/2019 5:25 PM CDT [facility] Nitrite UA Negative Negative 04/18/2019 5:25 PM CDT [facility] Leukocyte Esterase Negative Negative 04/18/2019 5:25 PM CDT [facility] Urobilinogen UA Negative Negative mg/dL 04/18/2019 5:25 PM CDT [facility] RBC UA 0-2 None Seen, 0-2, 3-5 /HPF 04/18/2019 5:25 PM CDT [facility] WBC UA None Seen None Seen, 0-5 /HPF 04/18/2019 5:25 PM CDT [facility] Squamous Epithelial Cells UA 0-2 None Seen, 0-2 /HPF 04/18/2019 5:25 PM CDT [facility] Urine URINE SPECIMEN OBTAINED BY CLEAN CATCH PROCEDURE / Unknown Collection / Unknown 04/18/2019 4:55 PM CDT 04/18/2019 5:14 PM CDT Narrative [facility] - 04/18/2019 5:25 PM CDT Su MCCRACKENMEDICAL ART THERAPIST LAB - URINALYSIS ORDERABLES Performing Organization Address City/State/[facility] Co de Phone Number [address] [phone] * URINALYSIS AUTO - POINT OF CARE (AMB) U (04/18/2019 11:40 AM CDT) Glucose UA neg Bilirubin UA POCT neg Ketones UA POCT neg Specific [place] UA 1.010 Blood Urine POCT 10 pH UA 6.5 Protein UA neg Urobilinogen UA 3.5 Nitrite UA neg WBC UA neg Urine URINE / Unknown 04/18/2019 1 1:40 AM CDT Su Aiken APRN-MEDICAL ART THERAPIST LAB - POINT OF C ARE ORDERABLES documented in this encounter Visit Diagnoses Diagnosis Microscopic hematuria- Primary Mixed stress and urge urinary incontinence Mixed incontinence urge and stress (male)(female) documented in this encounter Care Teams Portable Feed Mill Operator Relationship Specialty Start Date End Date Cory Tatum MD [address] [facility] [address] [place] [address] PCP - General 11/27/17 09/18/19 documented as of this encounter
--- OUTSIDE RECORDS SUMMARY | 2024-07-20 06:45 | XMS_ITS | Encounter Summary ---
Author Organization [facility] Address [address] [place] [address]. [place], [place] [id number] [place] [id number] Care Team Providers Care Smearer Name Role Phone Unavailable Primary Care Provider Unavailabl e Encounter Details Date Type Department Care Team (Late st Contact Info) Description 03/29/1994 Abstract [facility] CONVERSION [address] [place] [address] , Generic Conversion, Social History Tobacco Use Types Packs/Day Years Used Date Smoking Tobacco: Never Assessed Comments Unknown Sex and Gender Information Value Date Recorded Sex Assigned at Not on file Legal Sex Female 8:29 PM CDT Gender Identity Not on file Sexual Orientation Not on file documented as of this encounter Plan of Treatment Not on file documented as of this encounter Visit Diagnoses Not on filedocumented in this encounter
--- OUTSIDE RECORDS SUMMARY | 2024-07-20 06:45 | XMS_ITS | Encounter Summary ---
Author Organization [facility] Address [address] [place] [address] Care Team Providers Care Family And Divorce Legal Assistant Name Role Phone Usha Henry MD Primary Care Provider [phone] Reason for Referral * Radiology Services (Routine) - Closed Specialty Diagnoses / Procedures Referred By Ronna crockett Referred To Contact CT Scan Diagnoses Chronic obstructive pulmonary disease, unspecified COPD type (HCC) Pulmonary nodule Procedures CT CHEST WO CONTRAST Derek Johnson MD [address] [place] [address] 2L DIV OF PULM/[place] [address] [facility] [address] [place] [address] Referral ID Status Reason Start Date Expiration Date Visits Re quested Visits Authorized [id number] Closed 11/23/2020 12/23/2020 1 1 Reason for Visit * Radiology Services (Routine) - Closed Specialty Diagnoses / Procedures Referred By Ronna crockett Referred To Contact CT Scan Diagnoses Chronic obstructive pulmonary disease, unspecified COPD type (HCC) Pulmonary nodule Procedures CT CHEST WO CONTRAST Derek Johnson MD [address] [facility] 2[address] DIV OF PUL[place] [address] [facility] [address] [place] [address] Referral ID Status Reason Start Date Expiration Date Visits Re quested Visits Authorized [id number] Closed 11/23/2020 12/23/2020 1 1 Encounter Details Date Type Department Care Team (Latest Contact Info) Description 12/01/2020 8:25 AM CDT - 12/01/2020 9:33 AM CDT Hospital Encounter [facility] CAT SCAN [address] [place] [id number] Derek Johnson MD [address] [facility] 2L DIV OF PULM/[place] [address] Discharge Disposition: Home or Self Care Social [...] daily vitamin D, ergocalciferol, (DRISDOL) 1.25 MG (91101 UT) capsule TK 1 C PO Q WK 03/02/2020 omeprazole (PRILOSEC) 20 MG capsule TK 1 C PO D 03/10/2020 12/20/2020 Tiotropium [place]-Olodaterol (STIOLTO RESPIMAT) 2.5-2.5 MCG/ACTIndications:Physical Education Department Chair bren obstructive pulmonary disease, unspecified COPD type (HCC) Inhale 2 puffs by mouth once daily 1 Inhaler 11 08/19/2020 12/20/2020 VENTOLIN HFA 108 (90 Base) MCG/ACT inhaler Inhale 2 (two) puffs by mouth every 6 hours as needed 1 Inhaler 11 08/11/2020 12/20/2020 documented as of this encounter Plan of Treatment Not on file documented as of this encounter Procedures Procedure Name Priority Date/Time Associated Diagnosis Comments CT CHEST WO CONTRAST Routine 12/01/2020 8:32 AM CDT Chronic obstructive pulmonary disease, unspecified COPD type (HCC) Pulmonary nodule documented in this encounter Results * CT CHEST WO CONTRAST (12/01/2020 8:32 AM CDT) Anatomical Region Laterality Modality Chest Computed Tomogra phy 12/01/2020 8:38 AM CDT Impressions 12/01/2020 4:06 PM CDT Impression: 1.Interval increase in the size of the previously-reported right upper lobe solid nodule in addition to a new 3.5 mm solid nodule in the left upper lobe. According to Fleischner Society pulmonary nodule recommendations, CT at 3-6 months, then CT at 18-24 months. 2.Stable 9 mm left lower lobe solid nodule. 3.Stable apical scarring and paraseptal emphysema predominantly in the upper lobes. Report drafted by Jason Peacock (resident) I, Dr. GANGA WALLACE have personally reviewed and interpreted this examination/study. This report was electronically signed by GANGA WALLACE ??on 12/01/2020 4:06 PM . Narrative 12/01/2020 4:06 PM CDT Procedure Information DATE: 12/01/2020 8:32 AM EXAMINATION: Computed tomography (CT) of the chest without contrast. TECHNIQUE: CT of the chest was performed without contrast according to standard protocol. Clinical Information HISTORY: J44.9: Chronic obstructive pulmonary disease, unspecified COPD type R91.1: Pulmonary nodule COMPARISON: CT chest without contrast from 04/16/2020. Findings Evaluation of visceral and vascular structures is degraded due to lack of intravenous contrast administration. Lines/Tubes: None. Lower neck and axillae: Normal. Mediastinum and Jesusita: Benign-appearing bilateral axillary lymph nodes. No suspicious lymph nodes are present. There are atherosclerotic changes in the LAD, circumflex and RCA grossly unchanged from the prior study. The aorta is atherosclerotic but with normal caliber. Heart and Pericardium: The cardiac chambers are normal in size. No pericardial fluid or thickening is present. Lung Parenchyma, Airways, and Pleural Spaces: There is a new 3.5 mm solid nodule in the left upper lobe (series 4 image 24). The previously-reported right upper lobe solid nodule has increased in size now measuring 4 mm compared to just over 3 mm on remeasurement on the prior study (series 4 image 27). Redemonstration of the previously reported 9-mm left lower lobe solid pulmonary nodule without change in size (series 4 image 67). Biapical pleural scarring appears unchanged. There is paraseptal emphysema predominantly in the upper lobes. No pulmonary parenchymal or airway process is present. There is no pleural effusion or pneumothorax. Bones and Soft Tissue: The visible osseous structures are intact. Upper Abdomen: The visible upper abdominal viscera are unremarkable. Procedure Note Ganga Wallace MD - 12/01/2020 Procedure Information DATE: 12/01/2020 8:32 AM EXAMINATION: Computed tomography (CT) of the chest without contrast. TECHNIQUE: CT of the chest was performed without contrast according to standard protocol. Clinical Information HISTORY: J44.9: Chronic obstructive pulmonary disease, unspecified COPD type R91.1: Pulmonary nodule COMPARISON: CT chest without contrast from 04/16/2020. Findings Evaluation of visceral and vascular structures is degraded due to lackof intravenous contrast administration. Lines/Tubes: None. Lower neck and axillae: Normal. Mediastinum and Jesusita: Benign-appearing bilateral axillary lymph nodes. No suspicious lymphnodes are present. There are atherosclerotic changes in the LAD, circumflexand RCA grossly unchanged from the prior study. The aorta is atherosclerotic but with normal caliber. Heart and Pericardium: The cardiac chambers are normal in size. No pericardial fluid or thickening is present. Lung Parenchyma, Airways, and Pleural Spaces: There is a new 3.5 mm solid nodule in the left upper lobe (series 4image 24). The previously-reported right upper lobe solid nodule has increased in size now measuring 4 mm compared to just over 3 mm on remeasurementon the prior study (series 4 image 27). Redemonstration of the previously reported 9-mm left lower lobe solid pulmonary nodule without change in size (series 4 image 67). Biapical pleural scarring appears unchanged. There is paraseptalemphysema predominantly in the upper lobes. No pulmonary parenchymal or airway process is present. There is no pleural effusion or pneumothorax. Bones and Soft Tissue: The visible osseous structures are intact. Upper Abdomen: The visible upper abdominal viscera are unremarkable. Impression: 1.Interval increase in the size of the previously-reported right upper lobe solid nodule in addition to a new 3.5 mm solid nodule in the left upper lobe. According to Fleischner Society pulmonary nodule recommendations, CT at 3-6 months, then CT at 18-24 months. 2.Stable 9 mm left lower lobe solid nodule. 3.Stable apical scarring and paraseptal emphysema predominantly in the upper lobes. Report drafted by Jason Peacock (resident) I, Dr. GANGA WALLACE have personally reviewed and interpreted this examination/study. This report was electronically signed by GANGA WALLACE on 14:06 PM . Derek Johnson MD CT ORDERABLES documented in this encounter Visit Diagnoses Diagnosis Chronic obstructive pulmonary disease, unspecified COPD type (HCC) Pulmonary nodule Solitary pulmonary nodule documented in this encounter Care Teams Family And Divorce Legal Assistant Relationship Specialty Start Date End Date Usha Henry MD [address] [place] [phone] PCP - General Family Medicine 09/19/19 documented as of this encounter
--- OUTSIDE RECORDS SUMMARY | 2024-07-20 06:45 | XMS_ITS | Clinical Summary ---
Author Organization [facility] Address [address] [place] [address]. [place] [address] [place] [address] Care Team Providers Care Lining Sewer Name Role Phone Unavailable Primary Care Provider Unavailabl e Social History Tobacco Use Types Packs/Day Years Used Date Smoking Tobacco: Never Assessed Comments Unknown Sex and Gender Information Value Date Recorded Sex Assigned at Not on file Legal Sex Female 8:29 PM CDT Gender Identity Not on file Sexual Orientation Not on file Plan of Treatment Health Maintenance Due Date Last Done Comments Colorectal Cancer Screening Colonoscopy (10 Years) 1952 Hepatitis C 1970 DTaP, Tdap and Td Vaccines ( 1 - Tdap) 1971 Mammogram Screening 1992 Zoster Vaccines (1 of 2) 2002 Dexa Scan (General) 2017 Pneumococcal Vaccine: 65+ Ye ars (1 of 1 - PCV) 2017 COVID-19 Vaccine (2023-2 5 season) 2024 Influenza Adult (#1) 2024 RSV Immunization or 60+ Years (1 - 1-dose 75+ series) 2027 Meningococcal Vaccine Aged Out No liana rome eligible based on patient's age to complete this topic RSV Immunizations Under 20 Months Aged Out No longer eligible based on patient's age to complete this topic
--- OUTSIDE RECORDS SUMMARY | 2024-07-20 06:45 | XMS_ITS | Encounter Summary ---
Author Organization [facility] Address [address] [facility] [place] [address] Care Team Providers Care Site Safety Representative Name Role Phone Usha Henry MD Primary Care Provider [phone] Reason for Visit * Radiology Services (Routine) - Closed Specialty Diagnoses / Procedures Referred By Ronna t Referred To Contact CT Scan Diagnoses Lung nodule Procedures CT CHEST WO CONTRAST Anup Garcia MD [address] [place] [address] [facility] [address] [place] [address] Referral ID Status Reason Start Date Expiration Date Visits Re quested Visits Authorized [id number] Closed 09/30/2019 11/01/2019 1 1 Encounter Details Date Type Department Care Team (Late st Contact Info) Description 10/02/2019 3:32 PM LEARNING AND DEVELOPMENT ASSISTANT - 10/02/2019 11:59 PM [facility] Hospital Encounter [facility] CAT SCAN [address] [place] [address] Anup Garcia MD [address] [place] [address] Discharge Disposition: Home or Self [...] Take 1,000 mg by mouth once daily umeclidinium-vilantero l (ANORO ELLIPTA) 62.5-25 MCG/INH inhaler Inhale 1 puff by mouth once daily 60 g 11 01/10/2019 08/11/2020 VENTOLIN HFA 108 (90 Base) MCG/ACT inhaler Inhale 2 puffs by mouth every 6 hours as needed 1 Inhaler 11 01/10/2019 08/11/2020 documented as of this encounter Plan of Treatment Not on file documented as of this encounter Procedures Procedure Name Priority Date/Time Associated Diagnosis Comments CT CHEST WO CONTRAST Routine 10/02/2019 3:38 PM LEARNING AND DEVELOPMENT ASSISTANT Lung nodule documented in this encounter Results * CT CHEST WO CONTRAST (10/02/2019 3:38 PM LEARNING AND DEVELOPMENT ASSISTANT) Anatomical Region Laterality Modality Chest Computed Tomogra phy 10/02/2019 4:31 PM LEARNING AND DEVELOPMENT ASSISTANT Impressions 10/03/2019 4:32 PM LEARNING AND DEVELOPMENT ASSISTANT IMPRESSION: 1.Unchanged appearance of pulmonary nodules measuring up to 9 mm, stable since prior exam. Recommend follow-up CT in 6-12 months. Report dictated by Daniel Ramos MD (sales and marketing vice president) Dr. Mary Fuentes M.D. have personally reviewed and interpreted this examination/study. This report was electronically signed by Mary OTTO M.D. ??on 10/03/2019 4:32 PM . Narrative 10/03/2019 4:32 PM LEARNING AND DEVELOPMENT ASSISTANT EXAMINATION: Computed tomography (CT) of the chest [...] months. Report dictated by Daniel Ramos MD (sales and marketing vice president) IDr. Mary M.D. have personally reviewed and interpretedthis examination/study. This report was electronically signed by Mary OTTO M.D. on 10/03/2019 4:32 PM . Anup Garcia MD CT ORDERABLES documented in this encounter Visit Diagnoses Diagnosis Lung nodule Solitary pulmonary nodule documented in this encounter Care Teams Site Safety Representative Relationship Specialty Start Date End Date Usha Henry MD [address] [place] [phone] PCP - General Family Medicine 09/19/19 documented as of this encounter
--- OUTSIDE RECORDS SUMMARY | 2024-07-20 06:45 | XMS_ITS | Encounter Summary ---
Author Organization [facility] Address [address] [facility] [place] [address] Care Team Providers Care Singe Machine Operator Name Role Phone Cory Tatum MD Primary Care Provider [phone] Reason for Visit * Reason Onset Date Comments Follow-up 10/30/2018 Encounter Details Date Type Department Care Team (Late st Contact Info) Description 10/30/2018 Telephone [facility] Pul[facility], Critical Care [facility] Sleep Medicine [address] [place] [address] Kellen Deal RN Follow-up Social History Tobacco Use Types Packs/Day Years [...] Miscellaneous Notes * Telephone Encounter - Kellen Deal - 10/30/2018 3:08 PM CDT Followup call. Appt rescheduled for December 27. States she is wondering if Dr Garcia is still wanting CT chest. October CT chest was denied and needed peer to peer. [employer] denial letter in media. Reschedule for December 10. Patient notified documented in this encounter Plan of Treatment Not on file documented as of this encounter Visit Diagnoses Not on filedocumented in this encounter Care Teams Singe Machine Operator Relationship Specialty Start Date End Date Cory Tatum MD [address] [place] [id number] PCP - General 11/27/17 09/18/19 documented as of this encounter
--- OUTSIDE RECORDS SUMMARY | 2024-07-20 06:45 | XMS_ITS | Continuity of Care Document ---
Author Organization [facility] Address [address] [facility] [place] [address] Phone Care Team Providers Care Grinding Machine Operator Automatic Name Role Phone Twan Riley MD Unavailable Unavailable Allergies, Adverse Reactions, Alerts Substance Reaction Status Criticality No Known Allergies Active No Inform ation Medications Medication Instructions Dosage Effective Dates (start - stop) Status Comments Ventolin HFA 90 mcg/actuation aerosol inhaler inhale 2 puff by inhalation route every 4 - 6 hours as needed - Active Atrovent HFA 17 mcg/actuation aerosol inhaler inhale 2 puff by inhalation route 4 times every day 34 MCG - Active Vitamin D2 50,000 unit capsule take 1 capsule by oral route every week - Active Zantac 150 mg tablet take 1 tablet by or al route 2 times every day - Active pravastatin 40 mg tablet take 1 tablet by oral route every day 40 MG - Active Procedures Procedure Date OFFICE/OUTPATIENT VISIT, EST OFFICE/OUTPATIENT VISIT, EST OFFICE/OUTPATIENT VISIT, EST PREV VISIT, EST, AGE 40-64 OFFICE/OUTPATIENT VISIT, EST OFFICE/OUTPATIENT VISIT, EST OFFICE/OUTPATIENT VISIT, EST OFFICE/OUTPATIENT VISIT, EST PREV VISIT, NEW, AGE 40-64 Advance Directives Directive Yes / No Effective Date File Name No Information Encounters Encounter Description Practice Location Reason(s) For Visit Diagnoses Date Provider Providers Copied on Encounter [facility], [address] [facility] [place], [address], [place] tel:[phone] [facility] No Information 0 9 Osvaldo Trent. [address], [place], [place], [facility]. tel:[phone] Referring Provider: Twan Riley, [address] [facility] [address], [place], [facility]. tel:[phone] OFFICE/OUTPA TIENT VISIT, [facility], [address], [place], [facility], tel:[phone] [facility] lung nodule1 (chief complaint) GERD1 (chief complaint) HLP (chief complaint) CAD1 (chief complaint) HyperlipidemiaHyper glycemiaSolitary lung noduleCOPD 0 7 Osvaldo Trent. [address], [place], [facility]. tel:[phone] Referring Provider: Heriberto Vargas [facility] [address], [place], [facility]. tel:[phone] OFFICE/OUTPA TIENT VISIT, [facility], [address], [place], [address], tel:[phone] [facility] COPd1 (chief complaint) GERD1 (chief complaint) hep C (chief complaint) polycyther mia1 (chief complaint) Secondary polycythemiaAcute gastritis without bleedingEncounter for screening for other viral diseasesTobacco use Sep-3 0 7 Osvaldo Trent. [address], [place], [facility]. tel:[phone] Referring Provider: Heriberto Vargas [address], [place], [facility]. tel:[phone] OFFICE/OUTPA TIENT VISIT, [facility], [address] [place], [address], [place] tel:[phone] [facility] glucose1 (chief complaint) HLP (chief complaint) polycyther mia1 (chief complaint) COPD1 (chief complaint) HyperglycemiaCOPDMi xed hyperlipidemiaSecon matt polycythemia Sep-0 7 Osvaldo Trent. [address], [address], [place], [address]. tel:[phone] Referring Provider: Heriberto Vargas [address], [place], [address]. tel:[phone] PREV VISIT, EST, AGE 40-64 [facility], [address], [place], [address], [place] tel:[phone] [facility] PHysical (chief complaint) Encntr for general adult medical exam w/o abnormal findings 7 Osvaldo Trent. [address], [address], [place], [address]. tel:[phone] Referring Provider: Heriberto Vargas [address], [place], [facility]. tel:[phone] OFFICE/OUTPA TIENT VISIT, [facility], [address], [place], [facility], [place] tel:[phone] [facility] COPD (chief complaint) gastritis1 (chief complaint) vitamin D (chief complaint) COPDAcute gastritis without bleedingVitamin D deficiency, unspecifiedTobacco abuse counseling 6 Osvaldo Trent. [address], [place], [facility]. tel:[phone] Referring Provider: Heriberto Vargas [address], [place], [address]. tel:[phone] OFFICE/OUTPA TIENT VISIT, [facility], [address], [place], [address], [place] tel:[phone] [facility] shortness of breath1 (chief complaint) GERD1 (chief complaint) HLP1 (chief complaint) hyperglyce mia1 (chief complaint) HyperglycemiaMixed hyperlipidemiaOther specified disorder of bone densityShortness of breath 6 Osvaldo Trent. [address], [place], [facility]. tel:[phone] Referring Provider: Heriberto Vargas [address], [place], [address]. tel:[phone] OFFICE/OUTPA TIENT VISIT, [facility], [address] [place], [address], tel:[phone] [facility] osteopenia 1 (chief complaint) GERD1 (chief complaint) HLP1 (chief complaint) neck sore (chief complaint) SOB1 (chief complaint) GERD without esophagitisOther specified disorder of bone densityHyperglycemi aMixed hyperlipidemia 5 Osvaldo Trent. [address], [address] [place], [facility]. tel:[phone] Referring Provider: Twan Riley, [address], [facility]. tel:[phone] OFFICE/OUTPA TIENT VISIT, [facility], [address] [place], [facility], tel:[phone] [facility] glucose (chief complaint) hLP (chief complaint) GERD (chief complaint) Other and unspecified hyperlipidemiaHyper glycemiaVitamin deficiencyDietary surveillance and counseling 5 Osvaldo Trent. [address], [place], [facility]. tel:[phone] Referring Provider: Twan Riley, [address] [facility] [place] [place]. tel:[phone] PREV VISIT, NEW, AGE 40-64 [facility], [address] [place], [address], tel:[phone] [facility] Physical (chief complaint) Routine medical exam 5 Osvaldo Trent. [address], [address] [place], [facility]. tel:[phone] Family History Family Member Type Diagnosis Age At Onset Mother Problem (finding) Diabetes mellitus type 2 Father Problem (finding) Coronary artery disease Sister Problem (finding) Cancer, breast Payers Payer name Insurance type Covered green party ID Authoriza tion(s) No Information Social History Type Description Quantity Date Captured Comments Sex Female Smoking Status No Information Chief Complaint And Reason For Visit No Information Plan Of Treatment Date Type Action Status Referral Ordered: TUMOR IMAGE PET/CT FULL BODY ordered Referral Ordered: OLIVA GAYLE (related to Encntr for general adult medical exam w/o abnormal findings) ordered Referral Referred To: OLIVA GAYLE [address] [facility], [place], [phone] Ordered: Referrals: OLIVA GAYLE. Evaluate and treat ordered Referral Ordered: CT THORAX W/O DYE ordered Referral Ordered: Pulmonology (related to Shortness of breath) ordered Referral Ordered: Referrals: Pulmonology. Evaluate and treat ordered Referral Ordered: DXA BONE DENSITY, AXIAL ordered Referral Ordered: MAMMOGRAM, SCREENING ordered Referral Ordered: CHEST X-RAY PA/LAT TWO-VIEWS ordered Referral Ordered: COLONOSCOPY AND BIOPSY ordered History Of Present Illness Encounter Date Complaint History Of Prese nt Illness lung nodule1 Pt has lung nodu le. Pt needs repeast chets Ct soon. Pt has COPD. Pt uses atrovent and she does not need to use albuterol. Pt quit smoking GERD1 Pt takes zantac. Pt doing ok Pt has gastritis. HLP pt has HLP. Pt h as been taking pravastatin for 3 months. Pt denies any myalgia CAD1 Pt is seeing car diology. Pt had negative stress test per pt. Pt denies any chest pain. Pt quit smoking COPd1 Pt has COPD Pt u ses atrovent and venotlin. Pt uses venotlin 2-3 per week. Pt still smoking about 1/2 PPD. Pt has not done lung CT yet GERD1 Pt has indigesti on. Pt has GERD symptmos. Pt states that pepcid is not working. Pt denies any abd pain hep C Pt needs hep C s creening. Pt does not use IV drug polycythermia1 Pt has polycythe rmia. pt smokes heavily for many years. glucose1 Pt has mild high glucose but no DM. Pt denies any poyuria, polydispsia HLP Pt just restarte d pravastatin. Pt denies any myalgia. Her lipid profile is high polycythermia1 Pt has mild high H&H. Pt smokes about 1 ppd. COPD1 Pt smokes about 1 PPD. Pt has COPD Pt using atrovent and also ventolin. Pt uses venotlin once per week now. Pt denies any acute soB. Pt has 30 pack year tobacco PHysical Pt needs annual physical. Pt c/o buring and frequency and dysuria and low pelvic pressure for two weeks Pt notices strong odor in her urine. Pt denies any flank pain, fever, chill. . Pt took several keflex which did not help Pt also has COPD. Pt has been using venolin daily Pt did not start atrovent. Pt also has GERD and she takes pepcid and doing ok. Pt denies any abd pain. COPD Pt has frequent SOB. Pt denies any exertional SOB. Pt denies any chest pain. Pt had PFT done which showed mild COPD, no asthma component. Pt still smoking. Pt denies any acute SOB gastritis1 Pt has mild balwinder ritis. Pt is taking pepcid and doing ok. Pt denies any abd pain or any GERd symptoms vitamin D Pt has low vitam in D. Pt has been taking OTC supplement. Pt denies any history of fracture. Pt has osteopenia GERD1 Pt has mild balwinder ritis. Pt is on omeprazole and pepcid. Pt doing ok. Pt denies any GERD HLP1 Pt has been taki ng pravastatin and her lipid profile is normal. Pt denies any myalgia. Pt is on low fat and low carb diet hyperglycemia1 Pt has mild elev ated glucose and her A1c is 5.7 Pt denies any polyuria, polydipsia shortness of breath1 Pt feels SO B at least once per day and worse with going upstaris or any exertion. Pt denies any chest pain Pt states that ventolin does help Pt still smoking osteopenia1 Pt has osteopeni a on recent bone density study. Pt denies any history of fracture GERD1 Pt recently had EGD and colnosocopy and her eGD showed gastritis. Pt is on omerpzole 40 mg daily and pepcid now. Pt denies any GI complaints HLP1 Pt has been taki ng pravastatin. pt denies any myalgia. Her A1c is 5.7. Pt denies any polyruia, polydispsia neck sore Pt states that s he notices intermittent soreness around right side of neck for several months Pt denies any palpable nodule SOB1 Pt states that v entolin 1-2 per day due to SOB Pt smokes a lot. Pt denies any worsenign SOb glucose Pt has mild hype rglycemia. Pt denies any polyruia, polydipsia hLP Pt has HLP Pt is not on any diet GERD Associated sympt oms include heartburn. Pertinent negatives include back pain, blood in stool, constipation, diarrhea, dyspnea, fever, hematuria, nausea, rash, vaginal discharge, vomiting, weight gain and weight loss.Additional information:Symptoms doing much better with omeprzole. Pt has EGD and colnoscopy scheduled soon. Physical 64 yo female nee ds annual physical. Pt has not seen MD for 5 years. Pt c/o bladder infection for several days. Pt c/o dysuria, frequency, urgency for seferal days. Pt denies any back pain. Pt has COPD and she feels SOB frequently. Pt denies any chest pain. Pt has belching and IBS with constipation and diarrhea, No blood. Pt denies any other complaints Instructions Date Instruction Additional Infor sim Prescribed Activity and Exercise Education Related to Dietary Surveillance and Counseling Prescribed Diet Educ ation/Lifestyle Education Regarding Diet Related to Dietary Surveillance and Counseling Prescribed Diet Educ ation/Lifestyle Education Regarding Diet Related to Dietary Surveillance and Counseling Prescribed Activity and Exercise Education Related to Dietary Surveillance and Counseling Prescribed Diet Educ ation/Lifestyle Education Regarding Diet Related to Dietary Surveillance and Counseling Prescribed Activity and Exercise Education Related to Dietary Surveillance and Counseling Prescribed Diet Educ ation/Lifestyle Education Regarding Diet Related to Dietary Surveillance and Counseling Prescribed Activity and Exercise Education Related to Dietary Surveillance and Counseling Assessments Type Assessment Date No Information
--- OUTSIDE RECORDS SUMMARY | 2024-07-20 06:45 | XMS_ITS | Encounter Summary ---
Author Organization [facility] Address [address] [place] [address] Care Team Providers Care Vacuum Filter Operator Name Role Phone Usha Henry MD Primary Care Provider [phone] Encounter Details Date Type Department Care Team (Latest Contact Info) Description 12/01/2020 9:34 AM CDT - 12/01/2020 11:59 PM CDT Hospital Encounter [facility] PFT [address] [place] [id number] Derek Johnson MD [address] [facility] 2L DIV OF PULM/[place] [address] Discharge Disposition: Home or Self Care Social [...] daily vitamin D, ergocalciferol, (DRISDOL) 1.25 MG (03866 UT) capsule TK 1 C PO Q WK 03/02/2020 omeprazole (PRILOSEC) 20 MG capsule TK 1 C PO D 03/10/2020 12/20/2020 Tiotropium [place]-Olodaterol (STIOLTO RESPIMAT) 2.5-2.5 MCG/ACTIndications:Sign Writer Letterer Or Painter bren obstructive pulmonary disease, unspecified COPD type [...] on filedocumented in this encounter Care Teams Vacuum Filter Operator Relationship Specialty Start Date End Date Usha Henry MD [address] [place] [phone] PCP - General Family Medicine 09/19/19 documented as of this encounter
--- OUTSIDE RECORDS SUMMARY | 2024-07-20 06:45 | XMS_ITS | Encounter Summary ---
Author Organization [facility] Address [address] [place] [address] Care Team Providers Care Carton Inspector Name Role Phone Usha Henry MD Primary Care Provider [phone] Encounter Details Date Type Department Care Team (Late st Contact Info) Description 10/25/2020 Orders Only [facility] - COVID Vax [address] [place] [address] Horace Kerr MD [address] [phone] Need for vaccination Social History Tobacco Use Types Packs/Day Years [...] as of this encounter Visit Diagnoses Diagnosis Need for vaccination Need for prophylactic vaccination and inoculation against unspecified single disease documented in this encounter Care Teams Carton Inspector Relationship Specialty [place] [address] [place] [phone] PCP - General Family Medicine 09/19/19 documented as of this encounter
--- OUTSIDE RECORDS SUMMARY | 2024-07-20 06:45 | XMS_ITS | Encounter Summary ---
Author Organization [facility] Address [address] [place] [address] Care Team Providers Care Pan Washer Name Role Phone Usha Henry MD Primary Care Provider [phone] Reason for Visit * Reason Onset Date Comments Medication Issue 08/19/2020 Encounter Details Date Type Department Care Team (Late st Contact Info) Description 08/19/2020 Telephone [facility], [facility] Medicine [address] [facility], [place] [address] Derek Johnson MD [address] [facility] 2L DIV OF PULM/[place] [address] Medication Issue Social History Tobacco Use Types Packs/Day [...] Telephone Encounter - Derek Johnson MD - 08/19/2020 1:42 PM CST Ordered Stiolto (olodaterol/tiotropium) as per formulary and sent to pharmacy. Please let patient know. Thank you! RAL APPELLATE LAW CLERK * Telephone Encounter - Kellen Deal RN - 08/19/2020 10:39 AM FEDERAL APPELLATE LAW CLERK Per daughter, Abdullahi needs PA. Patient will be out of med at end of week. Will followup with Abram, on [facility]. Call to [employer]. Pharmcy help: ph:[phone] Ref # [id number].spoke w/ Mackenzie. Anoro non-preferred med. Preferred alternative to Anoro Ellipta includes: Stiolto respimat 2.5-2.5 for $9.20/mo or Bevespi For $9.20 per month. Will route to Dr Johnson for new order. RAL APPELLATE LAW CLERK documented in this encounter Plan of Treatment Not on file documented as of this encounter Visit Diagnoses Diagnosis Chronic obstructive pulmonary disease, unspecified COPD type (HCC)- Primary documented in this encounter Care Teams Pan Washer Relationship Specialty Start Date End Date Usha Henry MD [address] [place] [phone] PCP - General Family Medicine 09/19/19 documented as of this encounter
--- OUTSIDE RECORDS SUMMARY | 2024-07-20 06:45 | XMS_ITS | Encounter Summary ---
Author Organization [facility] Address [address] [facility] [place] [address] Care Team Providers Care Senior Visual Designer Name Role Phone Usha Henry MD Primary Care Provider [phone] Encounter Details Date Type Department Care Team (Late st Contact Info) Description 04/22/2020 Telephone [facility], Critical Care and Sleep Medicine [address] [place] [address] Derek Johnson MD [address] OF PULM/[place] [address] Social History Tobacco Use Types Packs/Day Years [...] have Coronavirus / COVID-19? Unable to assess 04/23/2020 11:17 AM CDT documented as of this encounter Miscellaneous Notes * Telephone Encounter - Jacqueline Nicholson - 04/22/2020 8:29 AM CDT Current Provider name: Dr. Derek Johnson Reason for call: Ms. Florencia Martinez and her daughter just called returning Noah Upton's call saying the doctor wants to see her today with results vs.05/21/2020. I just updated phone numbers in IDX Call Daughter Janice who is her catshovel driver Patient Call Back number: [phone] documented in this encounter Plan of Treatment Not on file documented as of this encounter Visit Diagnoses Not on filedocumented in this encounter Care Teams Senior Visual Designer Relationship Specialty Start Date End Date Usha Henry MD [address] [place] [phone] PCP - General Family Medicine 09/19/19 documented as of this encounter
--- OUTSIDE RECORDS SUMMARY | 2024-07-20 06:45 | XMS_ITS | Encounter Summary ---
Author Organization [facility] Address [address] [facility] [place] [address] Care Team Providers Care Guideman Name Role Phone Cory Tatum MD Primary Care Provider [phone] Reason for Visit * Reason Onset Date Comments Procedure Prior Auth Request 10/04/2018 Encounter Details Date Type Department Care Team (Late st Contact Info) Description 10/04/2018 Telephone [facility] Critical [facility] [address] [place], [place] [id number] Kellen Deal RN Procedure Prior Auth Request Social History Tobacco Use Types Packs/Day [...] * Telephone Encounter - Kellen Deal - 10/04/2018 2:57 PM CST Pre-auth for Chest CT , CPT 23167, denied by Jessica. Faxed received on 10/03/18. Requesting peer to peer by 10/04/18. Callback number . Ref number: [id number]. Will route to Dr Garcia. GER SEARCH ENGINE documented in this encounter Plan of Treatment Not on file documented as of this encounter Visit Diagnoses Not on filedocumented in this encounter Care Teams Guideman Relationship Specialty Start Date End Date Cory Tatum MD [address] [place] [address] PCP - General 11/27/17 09/18/19 documented as of this encounter
--- OUTSIDE RECORDS SUMMARY | 2024-07-20 06:45 | XMS_ITS | Encounter Summary ---
Author Organization [facility] Address [address] [place] [address] Care Team Providers Care Student Financial Aid Manager Name Role Phone Usah Henry MD Primary Care Provider [phone] Reason for Visit * Reason Onset Date Comments MEDICATION REFILL 08/11/2020 Encounter Details Date Type Department Care Team (Late st Contact Info) Description 08/11/2020 Refill [facility], Critical Care [facility] [address] [facility], [place] [phone] Derek Johnson MD [address] [facility] 2L DIV OF PULM/[place] [address] MEDICATION REFILL Social History Tobacco Use Types Packs/Day Years [...] on filedocumented in this encounter Care Teams Student Financial Aid Manager Relationship Specialty Start Date End Date Usha Henry MD [address] [place] [phone] PCP - General Family Medicine 09/19/19 documented as of this encounter
--- OUTSIDE RECORDS SUMMARY | 2024-07-20 06:45 | XMS_ITS | Encounter Summary ---
Author Organization [facility] Address [address] [place] [address] Care Team Providers Care Rehab Nursing Tech Name Role Phone Usha Henry MD Primary Care Provider [phone] Reason for Referral * Radiology Services (Routine) - Closed Specialty Diagnoses / Procedures Referred By Ronna crockett Referred To Contact CT Scan Diagnoses Chronic obstructive pulmonary disease, unspecified COPD type (HCC) Pulmonary nodule Procedures CT CHEST WO CONTRAST Derek Johnson MD [address] [place] [address] 2L DIV OF PULM/[place] [address] [facility] [address] [facility] [place] [address] Referral ID Status Reason Start Date Expiration Date Visits Re quested Visits Authorized [id number] Closed 11/23/2020 12/23/2020 1 1 * Procedure (Routine) - Closed Specialty Diagnoses / Procedures Referred By Ronna crockett Referred To Contact Pulmonary Disease Diagnoses Chronic obstructive pulmonary disease, unspecified COPD type (HCC) Procedures COMPLETE PFT Derek Johnson MD [address] [facility] 2L DIV OF PULM/[place] [address] [facility] Pft [address] [place] [address] Referral ID Status Reason Start Date Expiration Date Visits Re quested Visits Authorized [id number] Closed 04/23/2020 04/23/2021 1 1 Reason for Visit * Reason Onset Date Comments Imm Inj 04/23/2020 Encounter Details Date Type Department Care Team (Latest Contact Info) Description 04/23/2020 10:40 AM CDT Office Visit [facility], [place] [phone] Derek Johnson MD [address] [place] [address] DIV OF PULM/[place] [address] Chronic obstructive pulmonary disease, unspecified COPD type (HCC) (Primary Dx); Need for influenza vaccination; Need for prophylactic vaccination against Streptococcus pneumoniae (pneumococcus); Pulmonary nodule; Tobacco abuse; Chronic sinusitis, unspecified location Social History Tobacco Use Types Packs/Day Years [...] Sign Reading Time Taken Comments Blood Pressure 126/84 04/23/2020 10:43 AM CDT Pulse - - Temperature - - Respiratory Rate 20 04/23/2020 10:43 AM CDT Oxygen Saturation - - Inhaled Oxygen Concentration - - Weight - - Height - - Body Mass Index - - documented in this encounter Patient Instructions * Patient Instructions* Derek Johnson MD - 04/23/2020 10:59 AM CDT 1. Netipot 1-2 times per day with sterile water prior to nasal sprays 2. Flonase 1. Regular Flonase 1 spray in each nostril twice a day 2. Flonase Sensimist 2 sprays in each nostril daily 3. Antihistamines 1. Zyrtec (cetirizine) or Irina (fexofenadine) 4. Recommend PFTs prior to next visit 5. Try nicotine patch with lozenges when you get cravings. 6. CAT scan again in November 2020 7. Follow up in December 2020 documented in this encounter Progress Notes * Derek Johnson MD - 04/23/2020 10:40 AM CDT Pulmonary Medicine Outpatient Consultation Patient Name: Florencia Martinez Date of : 1950 Date of Service: 04/23/2020 Requesting Physician: Unknown, Provider Primary Care Physician: [...] reported to re-demonstrate LLL nodule. Interval History: -still smoking about 0.5 PPD, has done patches, bupropion, varenicline, and gum with no effect -wants to quit -does have sinus congestion -still has white sputum production which is not changed -no fevers or chills -has a cough in the mornings to clear throat -SOB still varies -uses albuterol about once a day -no hospitalization -no azithromycin Past Medical History: Diagnosis Date ??? Emphysema [...] file Gets together: Not on file Attends mormon service: Not on file Active member of [...] Social History Narrative ??? Not on file Family History Problem Relation [...] to Visit Medication Sig Dispense Refill ??? aspirin (ASPIRIN) 81 MG tablet Take 81 mg by mouth once daily ??? calcium 500 MG tablet Take 500 mg by mouth once daily ??? meclizine (ANTIVERT) 25 MG tablet TK 1 T PO TID PRF DIZZINESS 0 ? ? Multiple Vitamins-Minerals (WOMENS MULTI VITAMIN & MINERAL) TABS Take 1 tablet by mouth once daily ??? omeprazole (PRILOSEC) 20 MG capsule TK 1 C PO D ??? omeprazole EC (PRILOSEC OTC) 20 MG tablet Take 20 mg by mouth BID. ??? pravastatin (PRAVACHOL) 40 MG tablet Take 1 tablet by mouth once daily ??? sertraline (ZOLOFT) 50 MG tablet Take 50 mg by mouth once daily ??? umeclidinium-vilanterol (ANORO ELLIPTA) 62.5-25 MCG/INH inhaler Inhale 1 puff by mouth once daily 60 g 11 ??? VENTOLIN HFA 108 (90 Base) MCG/ACT inhaler Inhale 2 puffs by mouth every 6 hours as needed 1 Inhaler 11 ??? Vitamin D, Cholecalciferol, 1000 UNITS Take 1,000 mg by mouth once daily ??? vitamin D, ergocalciferol, (DRISDOL) 1.25 MG (07815 UT) capsule TK 1 C PO Q WK No current facility-administered medications on file prior to visit. Review of Systems: Constitutional: Negative Eyes: +puffiness under eyes Ears, nose, mouth, and throat: Positive for sinus trouble Respiratory: Positive for shortness of breath, chronic cough All other systems negative Physical Exam: BP 126/84 Resp 20 There is no height or weight on file to calculate BMI. General appearance: alert, cooperative, no distress Head: Normocephalic, without trauma Eyes: sclera and conjunctiva clear, EOMI and PERRLA, lids normal, slightly puffy in lower eye area Nose: nares open; no septal deviation is noted, bilateral lower turbinate mild edema and erythema Throat: no mucous membrane abnormalities Neck: range of motion is intact, no masses, thyroid not enlarged, no adenopathy Nodes: no cervical, axillary or inguinal adenopathy Back: no deformity or tenderness Lungs: breath sounds normal and symmetric; no rales or wheezes Heart: regular rhythm, normal S1 and S2, without murmurs, gallops or rubs Abdomen: soft without mass, non-tender, with normal bowel sounds Extremities: no clubbing, cyanosis or edema Skin: no rashes or other abnormalities are noted Pulmonary Function Testing: FVC FEV1 FEV1/FVC TLC RV DLCO 11/13/17 2.85 (92%) -> 2.92 (95%) +2% 1.96 (84%) -> 2.05 (88%) +4% 0.689 -> 0.702 5.01 (102%) -> 5.47 (111%) +11% 2.41 (133%) -> 2.58 (142%) +9% 20.56 (114%) Imaging: Per outside hospital reports: Ct chest [...] was stable ? CT chest 12/12/18: ??At [facility] IMPRESSION: ?? Left lower lobe 9 mm [...] CT chest w/o IV contrast: 04/16/[address] [facility] IMPRESSION: ?? 1. Left lower lobe 9 mm pulmonary nodule is unchanged from 12/12/2018. Impression: 1. COPD 2. Tobacco abuse 3. Pulmonary nodule 4. Immunization counseling Recommendations: 1. Repeat CT chest 12/12/20 for 2 year stability, then will need yearly LDCT chest 2. Continue umeclidinium/vilanterol Ellipta 1 puff daily 3. Continue albuterol 90 mcg MDI 2 puffs q4h PRN with spacer 4. Yearly influenza vaccination due today 5. PCV-13 completed 6. PPSV-23 due today RTC in 12/2020 Derek Johnson MD Plumber Assistant of Pulmonary & Critical Care Medicine [facility] Pager [phone] documented in this encounter Plan of Treatment Not on file documented as of this encounter Results * COMPLETE PFT (12/01/2020 11:11 AM CDT) Impressions Jese Scott MD - 12/01/2020 11:11 AM CDT [facility] DEPARTMENT OF PULMONARY, CRITICAL CARE, AND [...] Pulmonary, Critical Care and Sleep Medicine [facility] [employer] [facility] Pager: [phone] I have personally reviewed the pulmonary function test data and made adjustment to the interpretation where necessary. Jese Scott MD 12/06/2020 Narrative Jese Scott MD - 12/01/2020 11:11 AM CDT David Pate MD ? 12/01/2020 ??6:15 PM Derek Johnson MD RESPIRATORY THERAPY ORDERABLES * PFT OXYGEN DESATURATION STUDY (12/01/2020 11:10 AM CDT) Impressions Jese Scott MD - 12/01/2020 11:10 AM CDT [facility] DEPARTMENT OF PULMONARY, CRITICAL CARE, AND SLEEP [...] of Pulmonary, Critical Care, & Sleep Medicine [facility] I have personally reviewed the pulmonary function test data and made adjustment to the interpretation where necessary. Jese Scott MD 12/06/2020 Narrative Jese Scott MD - 12/01/2020 11:10 AM CDT David Pate MD ? 12/01/2020 ??6:15 PM Derek Johnson MD PFT ORDERABLES * CT CHEST WO CONTRAST (12/01/2020 8:32 [...] pulmonary disease, unspecified COPD type (HCC)- Primary Need for influenza vaccination Need for prophylactic vaccination and inoculation against influenza Need for prophylactic vaccination against Streptococcus pneumoniae (pneumococcus) Need for prophylactic vaccination against streptococcus pneumoniae (pneumococcus) Pulmonary nodule Solitary pulmonary nodule Tobacco abuse Tobacco use disorder Chronic sinusitis, unspecified location Chronic obstructive pulmonary disease, unspecified COPD type (HCC) Pulmonary nodule Solitary pulmonary nodule Chronic obstructive pulmonary disease, unspecified COPD type (HCC) documented in this encounter Care Teams Rehab Nursing Tech Relationship Specialty Start Date End Date Usha Henry MD [address] [place] [phone] PCP - General Family Medicine 09/19/19 documented as of this encounter
--- OUTSIDE RECORDS SUMMARY | 2024-07-20 06:45 | XMS_ITS | Continuity of Care Document ---
Author Organization [facility] Address [address] [place] [address] [facility] [address] [place] [address] Phone Care Team Providers Care Peoplesoft Hcm Consultant Name Role Phone Gabby Cornejo Unavailable Unavailable Advance Directives Directive Yes / No Effective Date File Name No Information Encounters Encounter Description Practice Location Reason(s) For Visit Diagnoses Date Provider Providers Copied on Encounter [facility], [address], [place], [place], [id number], [place] tel:[phone] [facility] No Information 4 Chantal Pierre. [address] , [address], [place], [address], [place]. tel:[phone] Family History Family Member Type Diagnosis Age At Onset No Information Payers Payer name Insurance type Covered constitution party ID Authoriza amanuel(s) Cecelia Christianson [id number] Social History Type Description Quantity Date Captured Comments Sex Female Smoking Status No Information Chief Complaint And Reason For Visit No Information Reason For Referral Reason For Referral No Information History Of Present Illness Encounter Date Complaint History Of Prese nt Illness No Information Functional Status Date Functional Assessmen t No Information Instructions Date Instruction Additional Infor mation No Information Assessments Type Assessment Date No Information Patient Care Teams Name Effective Dates (start - stop) Status Members No Information
--- OUTSIDE RECORDS SUMMARY | 2024-07-20 06:45 | XMS_ITS | Encounter Summary ---
Author Organization [facility] Address [address] [facility] [address] Care Team Providers Care Rental Manager Name Role Phone Unavailable Primary Care Provider Unavailabl e Encounter Details Date Type Department Care Team (Late st Contact Info) Description 11/13/2017 12:37 PM CDT - 11/13/2017 11:59 PM CDT Hospital Encounter [facility] PFT [address] [place] [phone] Anup Garcia MD [address] [place] [address] Discharge Disposition: Home or Self Care Social History Tobacco Use Types Packs/Day Years Used Date Smoking Tobacco: Former Cigarettes Q uit: 09/15/2017 Smokeless Tobacco: Never Alcohol Use Standard Drinks/Week Comments No 0 (1 standard drink = 0.6 oz pur e alcohol) Sex and Gender Information Value Date Recorded Sex Assigned at Not on file Gender Identity Not on file Sexual Orientation Not on file documented as of this encounter Medications at Time of Discharge Medication Sig Dispensed Refills Start Date End Date omeprazole EC (PRILOSEC OTC) 20 MG tablet Take 20 mg by mouth BID. 10/19/2017 albuterol HFA (PROVENTIL HFA) 108 (90 BASE) MCG/ACT inhaler Inhale 2 puffs by mouth 4X/day. 1 Inhaler 3 10/19/2017 09/24/2018 cefdinir (OMNICEF) 300 MG capsule 10/12/2017 04/18/2019 ipratropium hfa (ATROVENT HFA) 17 MCG/ACT inhaler Inhale by mouth TID. 10/19/2017 04/26/2018 umeclidinium-vilanterol (ANORO ELLIPTA) 62.5-25 MCG/INH inhaler Inhale 1 puff by mouth DAILY. 1 Inhaler 11 11/01/2017 11/01/2018 documented as of this encounter Progress Notes * Vasquez Monet MD - 11/13/2017 11:59 PM CDT Images from the original note were not included. documented in this encounter Procedure Notes * Ambrose Flores DO - 11/13/2017 11:59 PM CDTAssociated Order(s): COMPLETE PFT W/WO BRONCHODILATOR Images from the original note were not included. * Ambrose Flores DO - 11/13/2017 11:59 PM CDTAssociated Order(s): PFT OXYGEN DESATURATION STUDY Images from the original note were not included. * Ambrose Flores DO - 11/13/2017 11:59 PM CDTAssociated Order(s): SIX MINUTE WALK Images from the original note were not included. documented in this encounter Plan of Treatment Not on file documented as of this encounter Procedures Procedure Name Priority Date/Time Associated Diagnosis Comments COMPLETE PFT W/WO BRONCHODILATOR Routine 02/27/2018 1:58 PM CDT PFT OXYGEN DESATURATION STUDY Routine 02/27/2018 1:58 PM CDT SIX MINUTE WALK Routine 02/27/2018 1:58 PM CDT documented in this encounter Results * COMPLETE PFT W/WO BRONCHODILATOR (02/27/2018 1:58 PM CDT) Impressions Anup Campa MD - 02/27/2018 1:58 PM CDT [facility] DEPARTMENT OF PULMONARY, CRITICAL CARE, AND SLEEP MEDICINE PULMONARY FUNCTION TESTS Florencia Martinez 11/14/2017 INTERPRETATION Please see technologist's comments mentioned [...] and agree with the interpretation by the Charter Driver. Anup Campa M.D. Patient Manager of Internal Medicine Division of Pulmonary, Critical Care and Sleep Medicine [facility] Narrative Anup Campa MD - 02/27/2018 1:58 PM CDT Ambrose Flores DO ? 01/27/2018 11:10 AM Anup Garcia MD RESPIRATORY THERAPY ORDERABLES * PFT OXYGEN DESATURATION STUDY (02/27/2018 1:58 PM CDT) Impressions Anup Campa MD - 02/27/2018 1:58 PM CDT No evidence of desaturation noted. HR within normal limits. Overall normal study. Denilson Flores DO Pulmonary & Critical Care Fellow Division of Pulmonary, Critical Care and Sleep Medicine [facility] Pager: [phone] Narrative Anup Campa MD - 02/27/2018 1:58 PM CDT Ambrose Flores, DO ? 01/27/2018 11:10 AM Anup Garcia MD PFT ORDERABLES * SIX MINUTE WALK (02/27/2018 1:58 PM CDT) Impressions Anup Campa MD - 02/27/2018 1:58 PM CDT 494 meters walked. No desaturation. Within normal limits Denilson Flores DO Pulmonary & Critical Care Fellow Division of Pulmonary, Critical Care and Sleep Medicine [facility] Pager: [phone] I have reviewed this study and agree with the interpretation by the Charter Driver. Anup Campa M.D. Patient Manager of Internal Medicine Division of Pulmonary, Critical Care and Sleep Medicine [facility] Narrative Anup Campa MD - 02/27/2018 1:58 PM CDT Ambrose Flores DO ? 01/27/2018 11:09 AM Anup Garcia MD RESPIRATORY THERAPY ORDERABLES documented in this encounter Visit Diagnoses Diagnosis Lung nodule- Primary Solitary pulmonary nodule documented in this encounter
--- OUTSIDE RECORDS SUMMARY | 2024-07-20 06:45 | XMS_ITS | Encounter Summary ---
Author Organization [facility] Address [address] [place] [address] Care Team Providers Care Vehicle Assembly Inspector Name Role Phone Cory Tatum MD Primary Care Provider [phone] Reason for Visit * Reason Comments Refill Request Encounter Details Date Type Department Care Team (Late st Contact Info) Description 09/24/2018 Refill [facility] [address] [place] [address] Anup Garcia MD [address] [place] [phone] Refill Request Social History Tobacco Use Types [...] on filedocumented in this encounter Care Teams Vehicle Assembly Inspector Relationship Specialty Start Date End Date Cory Tatum MD [address] [facility] [address] [place] [address] PCP - General 11/27/17 09/18/19 documented as of this encounter
--- OUTSIDE RECORDS SUMMARY | 2024-07-20 06:45 | XMS_ITS | Encounter Summary ---
Author Organization [facility] Address [address] [place] [address] Care Team Providers Care Manager Medical Affairs Name Role Phone Cory Tatum MD Primary Care Provider [phone] Reason for Visit * Reason Comments Follow-up Encounter Details Date Type Department Care Team (Late st Contact Info) Description 01/10/2019 9:40 AM CDT Office Visit [facility] [address] [place] [address] Anup Garcia MD [address] [address] Lung nodule seen on imaging study (Primary Dx) Social History Tobacco Use Types [...] Sign Reading Time Taken Comments Blood Pressure 140/80 01/10/2019 9:18 AM CDT Pulse 74 01/10/2019 9:18 AM CDT Temperature 36.4 ??C (97.6 ??F) 01/10/2019 9:18 AM CD T Respiratory Rate 18 01/10/2019 9:18 AM CDT Oxygen Saturation 98% 01/10/2019 9:18 AM CDT Inhaled Oxygen Concentration - - Weight 75.2 kg (165 lb 12.8 oz) 01/10/2019 9:18 AM CDT Height - - Body Mass Index 28.46 04/26/2018 8:59 AM CDT documented in this encounter Progress Notes * Anup Garcia MD - 01/11/2019 11:19 AM CDT Chief Complaint/Reason for Consult: Follow up of COPD and Lung Nodule Referring Physician: Cory Tatum MD [address] [facility] [address] [place] [id number] History of Present Illness: Florencia Martinez??is a 67 y.o.??female with past medical history significant for tobacco abuse, lung nodule, IBS, C diff, who presents to the clinic today for evaluation of COPD. Alleviated by rest, exacerbated by activity. Timing of symptoms is constant. Quality is dull, achy. Severity is moderate. Location is chest. Doing better with Anoro ellipta inhaler. In interim, still smoking. Underwent a chest CT to evaluate her known 9 mm nodule seen as far back as 2016. Past Medical History: 1. Emphysema as seen on imaging 2. Tobacco abuse 3. Hyperlipidemia 4. ?osteopenia vs osteoperosis 5. Uterine Fibroid 6. Eye Surgery 7. IBS 8. GERD 9. Right eye blindness since 10. History of C Diff 11. Lung nodule Medications: Current Outpatient Prescriptions Medication ??? aspirin (ASPIRIN) 81 MG tablet ??? calcium 500 MG tablet ??? cefdinir (OMNICEF) 300 MG capsule ? ? Multiple Vitamins-Minerals (WOMENS MULTI VITAMIN & MINERAL) TABS ??? omeprazole EC (PRILOSEC OTC) 20 MG tablet ??? pravastatin (PRAVACHOL) 40 MG tablet ??? umeclidinium-vilanterol (ANORO ELLIPTA) 62.5-25 MCG/INH inhaler ??? VENTOLIN HFA 108 (90 Base) MCG/ACT inhaler ??? Vitamin D, Cholecalciferol, 1000 UNITS No current facility-administered medications for this visit. Allergies: No Known Allergies Family History: + COPD Social History: Social History Social History ??? Marital status: Spouse name: N/A ??? Number of children: N/A ??? Years of education: N/A Occupational History ??? Not on file. Social History Main Topics ??? Smoking status: Current Every Day Smoker Packs/day: 0.50 ??? Smokeless tobacco: Never Used Comment: 1 pack a week ??? Alcohol use No ??? Drug use: Yes Special: Marijuana Comment: occasional ??? Sexual activity: Not on file Other Topics Concern ??? Not on file Social History Narrative Review of Systems: CONSTITUTIONAL: No weight loss, [...] hives, eczema or rhinitis. Physical Exam: Vitals: 01/10/19 0918 BP: 140/80 Pulse: 74 Resp: 18 Temp: 97.6 ??F (36.4 ??C) SpO2: 98% Weight: 165 lb 12.8 oz (75.2 kg) General: comf HEENT: MMM Lungs: clear Cardiac: rrr Abdomen: non distended Ext: no edema Neuro: a /o x 3 Psych: friendly Data: No new labs Imaging: Per outside hospital reports: Ct chest [...] LLL nodule. Patient told it was stable CT chest 12/12/18: At [facility] IMPRESSION: ?? Left lower lobe 9 mm [...] then PET/CT or biopsy should be considered. Assessment and Plan: 1. COPD - continue Anoro - MUST STOP SMOKING 2. Tobacco abuse - cessation strongly encouraged - advised that patient increasing risk of cancer by continued smoking - discussed ways to quit 3. Pulmonary Nodule - stable as per imaging - yearly CT scans needed , or sooner if develops of systemic signs or symptoms Follow up in 6 months or sooner if needed Thank you for this consult. Please call if there are any questions or concerns. Anup Garcia MD [facility] project manager, Division of Pulmonary, Critical Care, and Sleep Medicine documented in this encounter Plan of Treatment Not on file documented as of this encounter Visit Diagnoses Diagnosis Lung nodule seen on imaging study- Primary documented in this encounter Care Teams Manager Medical Affairs Relationship Specialty Start Date End Date Cory Tatum MD [address] [place] [address] [address] [place] [address] PCP - General 11/27/17 09/18/19 documented as of this encounter
--- OUTSIDE RECORDS SUMMARY | 2024-07-20 06:45 | XMS_ITS | Encounter Summary ---
Author Organization [facility] Address [address] [facility] [place] [address] Care Team Providers Care Wine Bottle Inspector Name Role Phone Unavailable Primary Care Provider Unavailabl e Encounter Details Date Type Department Care Team (Late st Contact Info) Description 11/13/2017 12:37 PM CDT - 11/13/2017 11:59 PM CDT Hospital Encounter [facility] PFT [address] [place] [phone] Anup Garcia MD [address] [place] [address] Discharge Disposition: Home or Self Care Social [...] 11/01/2017 11/01/2018 documented as of this encounter Plan of Treatment Not on file documented as of this encounter Visit Diagnoses Not on filedocumented in this encounter
--- OUTSIDE RECORDS SUMMARY | 2024-07-20 06:45 | XMS_ITS | Encounter Summary ---
Author Organization [facility] Address [address] [place] [address] Care Team Providers Care Magician/Illusionist Name Role Phone Cory Tatum MD Primary Care Provider [phone] Encounter Details Date Type Department Care Team (Latest Contact Info) Description 04/18/2019 4:44 PM CDT - 04/18/2019 11:59 PM CDT Hospital Encounter [facility] [place] [address] [place] [address] Su Aiken, WOO-NATIONAL SALES MANAGER [address] [place] [phone] Discharge Disposition: Home or Self Care Social [...] Name Priority Date/Time Associated Diagnosis Comments URINALYSIS W/MICROSCOPIC NO CULTURE Routine 04/18/2019 4:55 PM CDT Microscopic hematuria documented in this encounter Results * (ABNORMAL) URINALYSIS W/MICROSCOPIC NO CULTURE (04/18/2019 4:55 PM CDT) Color UA Straw Straw, Yellow, Colorless 04/18/2019 5:25 PM CDT [facility] Clarity UA Clear Clear, Slt Cloudy 04/18/2019 5:25 PM CDT [facility] Specific [place] UA 1.004(L) 1.005 - 1.030 04/18/2019 5:25 PM T [facility] pH UA 7.0 5.0 - 8.0 pH 04/18/2019 5:25 PM T [facility] Protein UA Negative Negative mg/dL 04/18/2019 5:25 PM T [facility] Glucose UA Negative Negative mg/dL 04/18/2019 5:25 PM CDT [facility] Ketone UA Negative Negative mg/dL 04/18/2019 5:25 PM T [facility] Bilirubin UA Negative Negative mg/dL 04/18/2019 5:25 PM CDT [facility] Blood UA Negative Negative 04/18/2019 5:25 PM T [facility] Nitrite UA Negative Negative 04/18/2019 5:25 PM CDT [facility] Leukocyte Esterase Negative Negative 04/18/2019 5:25 PM CDT [facility] Urobilinogen UA Negative Negative mg/dL 04/18/2019 5:25 PM CDT [facility] RBC UA 0-2 None Seen, 0-2, 3-5 /HPF 04/18/2019 5:25 PM CDT [facility] WBC UA None Seen None Seen, 0-5 /HPF 04/18/2019 5:25 PM CDT [facility] Squamous Epithelial Cells UA 0-2 None Seen, 0-2 /HPF 04/18/2019 5:25 PM CDT [facility] Urine URINE SPECIMEN OBTAINED BY CLEAN CATCH PROCEDURE / Unknown Collection / Unknown 04/18/2019 4:55 PM CDT 04/18/2019 5:14 PM CDT Narrative [facility] - 04/18/2019 5:25 PM CDT Su Aiken APRN-NATIONAL SALES MANAGER LAB - URINALYSIS ORDERABLES [address] [phone] documented in this encounter Visit Diagnoses Diagnosis Microscopic hematuria documented in this encounter Care Teams Magician/Illusionist Relationship Specialty Start Date End Date Cory Tatum MD [address] [place] [address] [address] [place] [address] PCP - General 11/27/17 09/18/19 documented as of this encounter
--- OUTSIDE RECORDS SUMMARY | 2024-07-20 06:45 | XMS_ITS | Encounter Summary ---
Author Organization [facility] Address [address] [place] [address] Care Team Providers Care Rehab Liaison Name Role Phone Usha Henry MD Primary Care Provider [phone] Reason for Visit * Reason Onset Date Comments Results 04/21/2020 Encounter Details Date Type Department Care Team (Late st Contact Info) Description 04/21/2020 Telephone [facility] Pulmonary, Critical Care and Sleep Medicine [address] [facility], [place] [phone] Derek Johnson MD [address] [facility] 2L DIV OF PULM/CRITICAL CARE [place], [place] [id number] Results Social History Tobacco Use Types Packs/Day [...] have Coronavirus / COVID-19? Unable to assess 04/12/2020 10:05 AM CDT documented as of this encounter Miscellaneous Notes * Telephone Encounter - Maine Cook LPN - 04/21/2020 3:14 PM CDT Pt requesting to discuss results from CT. documented in this encounter Plan of Treatment Not on file documented as of this encounter Visit Diagnoses Not on filedocumented in this encounter Care Teams Rehab Liaison Relationship Specialty Start Date End Date Usha Henry MD [address] [place] [phone] PCP - General Family Medicine 09/19/19 documented as of this encounter
--- OUTSIDE RECORDS SUMMARY | 2024-07-20 06:45 | XMS_ITS | Encounter Summary ---
Author Organization [facility] Address [address] [place] [address] Care Team Providers Care Computer Peripheral Equipment Operator Name Role Phone Cory Tatum MD Primary Care Provider [phone] Reason for Visit * Reason Onset Date Comments General 02/04/2019 Encounter Details Date Type Department Care Team (Late st Contact Info) Description 02/04/2019 Telephone [facility] General Internal Medicine [address] [facility] [address] [place], [place] [phone] Anup Garcia MD [address] [facility] [address] [place] [address] General Social History Tobacco Use Types Packs/Day Years [...] encounter Miscellaneous Notes * Telephone Encounter - Kira Hairston - 02/04/2019 1:53 PM CDT New pharmacy needed. [facility] is requesting new RX, left Message on pts phone. vam documented in this encounter Plan of Treatment Not on file documented as of this encounter Visit Diagnoses Not on filedocumented in this encounter Care Teams Computer Peripheral Equipment Operator Relationship Specialty Start Date End Date Cory Tatum MD [address] [place] [address] PCP - General 11/27/17 09/18/19 documented as of this encounter
--- OUTSIDE RECORDS SUMMARY | 2024-07-20 06:45 | XMS_ITS | Encounter Summary ---
Author Organization [facility] Address [address] [place] [address] Care Team Providers Care Merchandise Shopper Name Role Phone Cory Tatum MD Primary Care Provider [phone] Reason for Visit * Reason Comments Refill Request Encounter Details Date Type Department Care Team (Late st Contact Info) Description 12/05/2018 Refill [facility] Pul[facility], Critical Care and Sleep Medicine [address] [place] [address] Anup Garcia MD [address] [place] [phone] Refill Request Social History Tobacco Use Types [...] on filedocumented in this encounter Care Teams Merchandise Shopper Relationship Specialty Start Date End Date Cory Tatum MD [address] [facility] [address] [place] [address] PCP - General 11/27/17 09/18/19 documented as of this encounter
--- OUTSIDE RECORDS SUMMARY | 2024-07-20 06:45 | XMS_ITS | Encounter Summary ---
Author Organization [facility] Address [address] [place] [address]. [place], [place] [address] [place] [address] Care Team Providers Care Piano And Organ Refinisher Name Role Phone Unavailable Primary Care Provider Unavailabl e Encounter Details Date Type Department Care Team (Late st Contact Info) Description 02/07/1998 Abstract [place] [address] , Generic Conversion, Social History Tobacco Use [...]
--- OUTSIDE RECORDS SUMMARY | 2024-07-20 06:45 | XMS_ITS | Encounter Summary ---
Author Organization [facility] Address [address] [place] [address] Care Team Providers Care Laborer Petroleum Refinery Name Role Phone Usha Henry MD Primary Care Provider [phone] Reason for Referral * Radiology Services (Routine) - Closed Specialty Diagnoses / Procedures Referred By Ronna crockett Referred To Contact CT Scan Diagnoses Lung nodule seen on imaging study Procedures CT CHEST WO CONTRAST Anup Garcia MD [address] [place] [address] [place] [address] [facility] [address] [place] [address] Referral ID Status Reason Start Date Expiration Date Visits Re quested Visits Authorized [id number] Closed 03/25/2020 04/24/2020 1 1 Reason for Visit * Radiology Services (Routine) - Closed Specialty Diagnoses / Procedures Referred By Ronna t Referred To Contact CT Scan Diagnoses Lung nodule seen on imaging study Procedures CT CHEST WO CONTRAST Anup Garcia MD [address] [place] [address] [place] [address] [facility] [address] [place] [address] Referral ID Status Reason Start Date Expiration Date Visits Re quested Visits Authorized [id number] Closed 03/25/2020 04/24/2020 1 1 Encounter Details Date Type Department Care Team (Late st Contact Info) Description 04/16/2020 2:29 PM CDT - 04/16/2020 11:59 PM CDT Hospital Encounter [facility] CAT SCAN [address] [place] [address] Anup Garcia MD [address] [facility] [address] [place] [address] Discharge Disposition: Home or Self Care Social [...] daily vitamin D, ergocalciferol, (DRISDOL) 1.25 MG (85553 UT) capsule TK 1 C PO Q WK 03/02/2020 omeprazole (PRILOSEC) 20 MG capsule TK 1 C PO D 03/10/2020 12/20/2020 umeclidinium-vilantero l (ANORO ELLIPTA) 62.5-25 MCG/INH inhaler [...] Diagnosis Comments CT CHEST WO CONTRAST Routine 04/16/2020 3:00 PM CDT Lung nodule seen on imaging study documented in this encounter Results * CT CHEST WO CONTRAST (04/16/2020 3:00 PM CDT) Anatomical Region Laterality Modality Chest Computed Tomogra phy 04/16/2020 3:43 PM CDT Impressions 04/16/2020 6:02 PM CDT IMPRESSION: 1. Left lower lobe 9 mm pulmonary nodule is unchanged from 12/12/2018. Dictated by Janette Collins MD (rn radiology). I, Dr. KALYANI WOOD have personally reviewed and interpreted this examination/study. This report was electronically signed by KALYANI WOOD ??on 04/16/2020 6:02 PM . Narrative 04/16/2020 6:02 PM CDT EXAMINATION: Computed tomography (CT) of the chest without contrast HISTORY: R91.1: Lung nodule seen on imaging study TECHNIQUE: CT of the chest was performed without contrast according to standard protocol. COMPARISON: CT chest without contrast on 10/02/2019 FINDINGS: Evaluation of visceral and vascular structures is degraded due to lack of intravenous contrast administration. The main pulmonary artery is normal in caliber. The aorta is atherosclerotic but normal in caliber. There is paraseptal emphysema. There is biapical pleural parenchymal scarring. The lungs are clear of focal consolidation. No pleural effusion or focal pleural thickening is identified. There is no evidence of pneumothorax. There is a 9 mm left lower lobe pulmonary nodule (series 4 image 63), and is unchanged compared to prior study. There is an unchanged 2 mm right upper lobe pulmonary nodule seen on series 4, image 22. The trachea is patent and midline. The heart size is normal. No pericardial effusion is present. No mediastinal, supraclavicular, or axillary lymphadenopathy is seen. The visible portions of the liver, gallbladder, spleen, pancreas, adrenal glands, kidneys, stomach, and bowel are normal. Bone windows demonstrate no suspicious lytic or blastic lesions. The visible osseous structures are intact. Procedure Note Kalyani Wood MD - 04/16/2020 EXAMINATION: Computed tomography (CT) of the chest without contrast HISTORY: R91.1: Lung nodule seen on imaging study TECHNIQUE: CT of the chest was performed without contrast according to standard protocol. COMPARISON: CT chest without contrast on 10/02/2019 FINDINGS: Evaluation of visceral and vascular structures is degraded due to lackof intravenous contrast administration. The main pulmonary artery is normal in caliber. The aorta is atherosclerotic but normal in caliber. There is paraseptal emphysema. There is biapical pleural parenchymal scarring. The lungs are clear of focal consolidation. No pleuraleffusion or focal pleural thickening is identified. There is no evidence of pneumothorax. There is a 9 mm left lower lobe pulmonary nodule (series 4 image 63), and is unchanged compared to prior study. There is anunchanged 2 mm right upper lobe pulmonary nodule seen on series 4, image 22. The trachea is patent and midline. The heart size is normal. No pericardial effusion is present. No mediastinal, supraclavicular, or axillary lymphadenopathy is seen. The visible portions of the liver, gallbladder, spleen, pancreas,adrenal glands, kidneys, stomach, and bowel are normal. Bone windows demonstrate no suspicious lytic or blastic lesions. The visible osseous structures are intact. IMPRESSION: 1. Left lower lobe 9 mm pulmonary nodule is unchanged from 12/12/2018. Dictated by Janette Collins MD (rn radiology). I, Dr. KALYANI WOOD have personally reviewed and interpreted this examination/study. This report was electronically signed by KALYANI WOOD on 04/16/2020 6:02PM . Anup Garcia MD CT ORDERABLES documented in this encounter Visit Diagnoses Diagnosis Lung nodule seen on imaging study documented in this encounter Care Teams Laborer Petroleum Refinery Relationship Specialty Start Date End Date Usha Henry MD [address] [place] [phone] PCP - General Family Medicine 09/19/19 documented as of this encounter
--- OUTSIDE RECORDS SUMMARY | 2024-07-20 06:45 | XMS_ITS | Encounter Summary ---
Author Organization [facility] Address [address] [place] [address]. [place], [place] [address] [place] [address] Care Team Providers Care Mold Maker Helper Name Role Phone Unavailable Primary Care Provider Unavailabl e Encounter Details Date Type Department Care Team (Late st Contact Info) Description 08/01/[address] [facility] [address] , Sheryl Stout MD Social History Tobacco Use Types Packs/Day Years Used Date Smoking Tobacco: Never Assessed Comments Unknown Sex and Gender Information Value Date Recorded Sex Assigned at Not on file Legal Sex Female 8:29 PM CDT Gender Identity Not on file Sexual Orientation Not on file documented as of this encounter Plan of Treatment Not on file documented as of this encounter Visit Diagnoses Diagnosis Follow-up examination Unspecified follow-up examination documented in this encounter
--- OUTSIDE RECORDS SUMMARY | 2024-07-20 06:45 | XMS_ITS | Encounter Summary ---
Author Organization [facility] Address [address] [facility] [place] [address] Care Team Providers Care Negative Retoucher Name Role Phone Unavailable Primary Care Provider Unavailabl e Encounter Details Date Type Department Care Team (Late st Contact Info) Description 11/13/2017 12:37 PM CDT - 11/13/2017 11:59 PM CDT Hospital Encounter [facility] PFT [address] [place] [phone] Anup Garcia MD [address] [place] [address] Discharge Disposition: Home or Self Care Social [...]
--- OUTSIDE RECORDS SUMMARY | 2024-07-20 06:45 | XMS_ITS | Encounter Summary ---
Author Organization [facility] Address [address] [place] [address] Care Team Providers Care Senior Administrative Associate Name Role Phone Usha Henry MD Primary Care Provider [phone] Reason for Visit * Reason Onset Date Comments Concerns 04/26/2020 Encounter Details Date Type Department Care Team (Late st Contact Info) Description 04/26/2020 Telephone [facility] Pulmonary, Critical Care and Sleep Medicine [address] [facility], [place] [phone] Derek Johnson MD [address] [facility] 2L DIV OF PULM/[place] [address] Concerns Social History Tobacco Use Types Packs/Day Years [...] Telephone Encounter - Derek Johnson MD - 04/26/2020 9:07 AM CDT Called patient to discuss symptoms. Continue care as mentioned below. States redness is going away.Had flu-like symptoms on Sunday which is now gone. Told to call back if not improving. Derek Johnson MD Payroll Professional of Pulmonary & Critical Care Medicine [facility] Pager [phone] * Telephone Encounter - Carmen Upton - 04/26/2020 8:34 AM CDT , Patient call in stating that she has tenderness and a redness around the area that she had the flu shot on 04/23/2020 in her left deltoid. She states that she put a warm cloth to her skin and the tenderness to seem to decrease a little. Itold her to call back if there are any changes in the next couple does. She has no rash as of now. If you could please call this patient to follow up. documented in this encounter Plan of Treatment Not on file documented as of this encounter Visit Diagnoses Not on filedocumented in this encounter Care Teams Senior Administrative Associate Relationship Specialty Start Date End Date Usha Henry MD [address] [place] [phone] PCP - General Family Medicine 09/19/19 documented as of this encounter
--- OUTSIDE RECORDS SUMMARY | 2024-07-20 06:45 | XMS_ITS | Encounter Summary ---
Author Organization [facility] Address [address] [place] [address] Care Team Providers Care Sand Caster Apprentice Name Role Phone Usha Henry MD Primary Care Provider [phone] Encounter Details Date Type Department Care Team (Latest Contact Info) Description 04/12/2020 Travel Social History Tobacco Use Types Packs/Day [...] on filedocumented in this encounter Care Teams Sand Caster Apprentice Relationship Specialty Start Date End Date Usha Henry MD [address] [place] [phone] PCP - General Family Medicine 09/19/19 documented as of this encounter
--- OUTSIDE RECORDS SUMMARY | 2024-07-20 06:45 | XMS_ITS | Encounter Summary ---
Author Organization [facility] Address [address] [place] [address] Care Team Providers Care Black Jack Dealer Name Role Phone Usha Henry MD Primary Care Provider [phone] Reason for Visit * Reason Onset Date Comments Results 10/03/2019 Encounter Details Date Type Department Care Team (Late st Contact Info) Description 10/03/2019 Telephone [facility] Pulmonary, Critical Care and Sleep Medicine [address] [place], [place] [phone] Anup Garcia MD [address] [address] Results Social History Tobacco Use Types Packs/Day [...] encounter Miscellaneous Notes * Telephone Encounter - Anup Garcia MD - 10/03/2019 7:46 PM CST Tried to call patient on both numbers listed via self propelled mining machine operator. No one picked up. Wanted to relay results of chest CT. EYOR MAN documented in this encounter Plan of Treatment Not on file documented as of this encounter Visit Diagnoses Not on filedocumented in this encounter Care Teams Black Jack Dealer Relationship Specialty Start Date End Date Usha Henry MD [address] [place] [phone] PCP - General Family Medicine 09/19/19 documented as of this encounter
--- OUTSIDE RECORDS SUMMARY | 2024-07-20 06:45 | XMS_ITS | Encounter Summary ---
Author Organization [facility] Address [address] [facility] [address] Care Team Providers Care Cooler Man Name Role Phone Usha Henry MD Primary Care Provider Reason for Referral * Radiology Services (Routine) - Closed Specialty Diagnoses / Procedures Referred By Ronna t Referred To Contact CT Scan Diagnoses Lung nodule seen on imaging study Procedures CT CHEST WO CONTRAST Anup Garcia MD [address] [place] [address] [facility] [address] [place] [address] Referral ID Status Reason Start Date Expiration Date Visits Re quested Visits Authorized [id number] Closed 03/25/2020 04/24/2020 1 1 Reason for Visit * Reason Onset Date Comments Results 10/06/2019 Encounter Details Date Type Department Care Team ([facility] Contact Info) Description 10/06/2019 Telephone [facility]m [facility] [address] [place], [place] [phone] Anup Garcia MD [address] [place], [place] [phone] Results Social History Tobacco Use Types Packs/Day [...] Telephone Encounter - Anup Garcia MD - 10/06/2019 10:51 AM CDT I spoke with patient regarding the results. Explained that nodule size is 9 mm and stable from prior. Discussed only way to know what the nodule is would be to sample. Patient wishes to follow up with imaging as recommended by radiology. We will place order. documented in this encounter Plan of Treatment Not on file documented as of this encounter Results * CT CHEST WO CONTRAST (04/16/2020 3:00 PM CDT) Anatomical Region Laterality Modality Chest Computed Tomogra phy 04/16/2020 3:43 PM CDT Impressions 04/16/2020 6:02 PM CDT IMPRESSION: 1. Left lower lobe 9 mm pulmonary nodule is unchanged from 12/12/2018. Dictated by Janette Collins MD (residential fee appraiser). I, Dr. KALYANI WOOD have personally reviewed [...] from 12/12/2018. Dictated by Janette Collins MD (residential fee appraiser). I, Dr. KALYANI WOOD have personally reviewed and interpreted this examination/study. This report was electronically signed by KALYANI WOOD on 04/16/2020 6:02PM . Anup Garcia MD CT ORDERABLES documented in this encounter Visit Diagnoses Diagnosis Lung nodule seen on imaging study- Primary Lung nodule seen on imaging study documented in this encounter Care Teams Cooler Man Relationship Specialty Start Date End Date Usha Henry MD [address] [place] [phone] PCP - General Family Medicine 09/19/19 documented as of this encounter
--- OUTSIDE RECORDS SUMMARY | 2024-07-20 06:45 | XMS_ITS | Encounter Summary ---
Author Organization [facility] Address [address] [place] [address] Care Team Providers Care Leather Patcher Name Role Phone Cory Tatum MD Primary Care Provider [phone] Reason for Visit * Reason Onset Date Comments Question 10/09/2018 Encounter Details Date Type Department Care Team (Late st Contact Info) Description 10/09/2018 Telephone [facility] Pul[facility], Critical Care and Sleep Medicine [address] [place], [place] [phone] Anup Garcia MD [address] [address] Question Social History Tobacco Use Types Packs/Day Years [...] encounter Miscellaneous Notes * Telephone Encounter - Carmen Upton - 10/09/2018 12:02 PM CDT Scheduling call stating that the insurance company will not cover the CT because it's too soon. Arethere any other steps that the patient need to do. documented in this encounter Plan of Treatment Not on file documented as of this encounter Visit Diagnoses Not on filedocumented in this encounter Care Teams Leather Patcher Relationship Specialty Start Date End Date Cory Tatum MD [address] [place] [address] PCP - General 11/27/17 09/18/19 documented as of this encounter
--- OUTSIDE RECORDS SUMMARY | 2024-07-20 06:45 | XMS_ITS | Encounter Summary ---
Author Organization [facility] Address [address] [place] [address] Care Team Providers Care Plastics Nurse Name Role Phone Unavailable Primary Care Provider Unavailabl e Encounter Details Date Type Department Care Team (Latest Contact Info) Description 10/19/2017 Hospital Outpatient Visit [facility] OUTPATIENT SERVICES [address] [place] [phone] ProviderSheri MD Discharge Disposition: Home or Self Care Social [...]
--- OUTSIDE RECORDS SUMMARY | 2024-07-20 06:45 | XMS_ITS | Encounter Summary ---
Author Organization [facility] Address [address] [place] [address] Care Team Providers Care Bias Machine Operator Helper Name Role Phone Usha Henry MD Primary Care Provider [phone] Encounter Details Date Type Department Care Team (Latest Contact Info) Description 10/08/2019 Travel Social History Tobacco Use Types Packs/Day [...] on filedocumented in this encounter Care Teams Bias Machine Operator Helper Relationship Specialty Start Date End Date Usha Henry MD [address] [place] [phone] PCP - General Family Medicine 09/19/19 documented as of this encounter
--- OUTSIDE RECORDS SUMMARY | 2024-07-20 06:45 | XMS_ITS | CONTINUITY OF CARE DOCUMENT ---
Author Name todd, todd Address Unknown Organization [facility] Address [address] [place] [address] Phone [phone] Care Team Providers Care Surgical Endoscopist Name Role Phone Neville Head MD Unavailable [phone] EDUARDO ALEJO MD Unavailable [phone] EDUARDO ALEJO MD Unavailable [phone] PROBLEMS Condition Status Date Provider Notes Sleep apnea, obstructive, mild active Emi Gutierrez MD Dyslipidemia active Neville Head MD Emphysema active Neville Head MD Tobacco abuse active Neville Head MD Family History of Sudden Cardiac : active ? Neville Head MD Family History of CVA or Stroke: active ? Neville Head MD Shortness of breath active Neville Head MD ENCOUNTERS Date Type Provider Location Encounter Diag nosis 9 - 2 In-person encounter Office Visit Neville Head MD [facility] 3 - 7 In-person encounter Office Visit Satish Gutierrez MD [facility] Sleep apnea, obstructive, mild 2 - 6 In-person encounter Office Visit Neville Head MD [place] [facility] Shortness of breathFamily History of CVA or Stroke:Family History of Sudden Cardiac :Tobacco abuseEmphysemaDyslipidemiaSleep apnea, obstructive, mild VITAL SIGNS Date Observation Value Provider Body Mass Index (Ratio) 26.96 kg/m2 Brennon Foster blood pressure, cuff size regular Ke joseph Castellon blood pressure, diastolic 70 mm[Hg] Ke rri Juan Joseuenenicki blood pressure, systolic 110 mm[Hg] Isabel ri Cande oxygen saturation, oximetry 97 % Shanae Cande respiratory rate E&M 20 /min Shanae G kaveh pulse rate 52 /min Shanae Kevin sanzer weight E&M 162 [lb_av] Shanae Kevin sanz height E&M 65 [in_i] Shanae Kevin sanz Body Mass Index (Ratio) 25.79 kg/m2 Brennon Foster blood pressure, resting No Malina Gutierrez MD blood pressure, cuff size regular Sylvie Smith blood pressure, diastolic 80 mm[Hg] Estella Santos blood pressure, systolic 118 mm[Hg] Myles Santos oxygen saturation, oximetry 98 % Annaha Santos respiratory rate E&M 16 /min Annaha Santos pulse rate 78 /min Anna Santos weight E&M 155 [lb_av] Anna Santos height E&M 65 [in_i] Anna Santos Body Mass Index (Ratio) 26.62 kg/m2 Brennon Foster blood pressure, cuff size regular Rad rri Cande blood pressure, diastolic 91 mm[Hg] Ke rri Cande blood pressure, systolic 137 mm[Hg] Isabel ri Cande oxygen saturation, oximetry 98 % Shanae Castellon respiratory rate E&M 16 /min Shanae G kaveh pulse rate 83 /min Shanae Kevin momin weight E&M 160 [lb_av] Shanae Kevin sanz height E&M 65 [in_i] Shanae momin ALLERGIES No Known Drug Allergies HISTORY OF MEDICATION USE Medication Status Instructions Dates Provider Indications Com ments CVS GLUCOSAMINE COMPLEX TABLET active take one pill a day Shanae Castellon CLARITIN 10 MG ORAL TABLET active take one pill a day Shanae Castellon ASPIR-LOW 81 MG ORAL TABLET DELAYED RELEASE completed take once a day - Shanae Castellon PRAVASTATIN SODIUM 40 MG ORAL TABLET completed take one pill a day - Shanae Castellon VITAMIN D (ERGOCALCIFEROL ) 32864 UNIT ORAL CAPSULE completed one pill a week - Shanae Castellon FAMOTIDINE 20 MG ORAL TABLET completed one pill twice a day - Shanae Castellon PROVENTIL HFA 108 (90 BASE) MCG/ACT INHALATION AEROSOL SOLUTION active as needed Shanae Castellon ANORO ELLIPTA 62.5-25 MCG/INH INHALATION AEROSOL POWDER BREATH ACTIVATED active one puff a day Shanae Castellon SOCIAL HISTORY Date Observation Value Provider social history reviewed E&M revi ewed - no changes required Turner Foster quit smoking, stage relapse Neville jacques MD smoking/tobacco cess ation, patient education and counseling yes Shanae Castellon alcohol use no Shanae momin number of years as a smoker 31 a Neville Head MD smoking, date started 1986 Shanae Castellon smoking history, tot al pack/day 1/2 Shanae Castellon cigarette use yes Shanae shah smoking status Current every day smoker K sarah Castellon social history reviewed E&M yrn ewed - no changes required Satish Gutierrez MD smoking/tobacco cess ation, patient education and counseling yes Anna Santos alcohol use no Anna Santos number of years as a smoker 30 a Anna Santos smoking, date started 1986 Anna Santos smoking history, tot al pack/day 1/2 Satish Gutierrez MD cigarette use yes Anna Tom smoking status Current every day smoker L denny Santos smoking, date started 1986 Bill Art social history reviewed E&M revi ewed - no changes required Neville Head MD social history E&M Smoking Histo ry: P atkobi currently smokes every day. P atient has been counseled to quit. Neville Head MD smoking/tobacco cess ation, patient education and counseling yes Neville Head MD alcohol use no Shanae momin number of years as a smoker 30 a Shanae Castellon smoking history, tot al pack/day 1/2 Turner Foster cigarette use yes Shanae shah smoking status Current every day smoker Mich smith Cande FAMILY HISTORY Family Member Condition Father Family History of Di abetes: Mother Family History of Marie dden Cardiac : Mother Family History of Hy pertension: Mother Family History of Di abetes: Mother Family History of CV A or Stroke: INSURANCE PROVIDERS Payer name Policy type / Coverage type [facility] [employer] Medicaid 3 [id number] [facility] Medicaid [id number] ADVANCE DIRECTIVES Name Date DISCUSSED - NO DECISION MADE TREATMENT PLAN Date Name Performer Cardiology Follow up:Advised to quit. Turner Foster Cardiology Follow up :She has chronic dyspnea due to her COPD. She's under the care of a shear assembler at [facility]. Cardiac workup last year was normal. Turner Foster Cardiology Follow up:Encouraged to quit completely. Satish Gutierrez MD Cardiology Follow up :Home sleep study showed mild PIERRE. She has been advised to reduce her weight. If she continues to be symptomatic, she will need a titration study. Satish Gutierrez MD Cardiology Follow up :Likely multifactorial and related to COPD and deconditioning. She has reduced her tobacco use. She is going to start an exercise program. Satish Gutierrez MD Cardiology New Patie nt:Orders: S lee Study Home ([id number]) STOP BANG score is 4. Turner Foster Cardiology New Patie nt:Her updated medication list for this problem includes: Pravastatin Sodium 40 Mg Oral Tabs (Pravastatin sodium) ..... Take one pill a day Turner Cristian Cardiology New Patie nt:STRONGLY ENCOURAGED TO STOP SMOKING; SMOKING CESSATION TECHNIQUES DISCUSSED. Turner Foster Cardiology New Patient:She repor ts a hx of emphysema. Turner Cristian Cardiology New Patie nt:The pt has complaints of SOB. There's hx of emphysema. The primary physician would like cardiac evaluation as a possible etiology for her SOB. Will obtain echo, stress myoview and home sleep study. Turner Foster Date Name Sleep Study Home STR - Nuclear Complete Echo HISTORY OF PROCEDURES Procedure Date Procedure Name Provider Procedure Notes S tatus SNOMED-CT: 251557870 Smoking Cessation Counseling Satish Gutierrez MD completed EKG Satish Gutierrez MD complet ed SNOMED-CT: 694075506 194434 Current Medications Documented Satish Gutierrez MD completed Stress EKG Ozzy Osborne MD completed Cardiolite, 2 units Neville Head MD c ompleted SPECT Images Jensen Bush MD completed SNOMED-CT: 723059999 Smoking Cessation Counseling Neville Head MD completed EKG Neville Head MD completed SNOMED-CT: 315303444 132859 Current Medications Documented Neville Head MD completed
--- OUTSIDE RECORDS SUMMARY | 2024-07-20 06:45 | XMS_ITS | Encounter Summary ---
Author Organization [facility] Address [address] [place] [address] Care Team Providers Care Air Boatswain Name Role Phone Usha Henry MD Primary Care Provider [phone] Encounter Details Date Type Department Care Team (Latest Contact Info) Description 04/23/2020 Travel Social History Tobacco Use Types Packs/Day [...] on filedocumented in this encounter Care Teams Air Boatswain Relationship Specialty Start Date End Date Usha Henry MD [address] [place] [id number] PCP - General Family Medicine 09/19/19 documented as of this encounter
--- OUTSIDE RECORDS SUMMARY | 2024-07-20 06:45 | XMS_ITS | Encounter Summary ---
Author Organization [facility] Address [address] [place] [address] Care Team Providers Care Health Information Technician Name Role Phone Cory Tatum MD Primary Care Provider [phone] Reason for Referral * Radiology Services (Routine) - Closed Specialty Diagnoses / Procedures Referred By Ronna crockett Referred To Contact CT Scan Diagnoses Lung nodule seen on imaging study Smoking Procedures CT CHEST WO CONTRAST Anup Garcia MD [address] [place] [address] [facility] [address] [place] [address] Referral ID Status Reason Start Date Expiration Date Visits Re quested Visits Authorized [id number] Closed 12/05/2018 01/19/2019 2 2 Reason for Visit * Reason Comments Emphysema f/u Shortness of Breath Pulmonary Nodule Encounter Details Date Type Department Care Team (Late st Contact Info) Description 04/26/2018 9:20 AM CDT Office Visit [facility] [address] [place] [address] Anup Garcia MD [address] [place] [address] (work) Lung nodule seen on imaging study (Primary Dx); Smoking; Encounter for immunization; Encounter for tobacco use cessation counseling Social History Tobacco Use Types Packs/Day [...] Sign Reading Time Taken Comments Blood Pressure 110/90 04/26/2018 8:59 AM CDT Pulse 84 04/26/2018 8:59 AM CDT Temperature 36.4 ??C (97.5 ??F) 04/26/2018 8:59 AM CD T Respiratory Rate - - Oxygen Saturation 98% 04/26/2018 8:59 AM CDT Inhaled Oxygen Concentration - - Weight 74.5 kg (164 lb 3.2 oz) 04/26/2018 8:59 A M CDT Height 162.6 cm (5' 4 ) 04/26/2018 8:59 AM CDT Body Mass Index 28.18 04/26/2018 8:59 AM CDT documented in this encounter Patient Instructions * Patient Instructions* Anup Garcia MD - 04/26/2018 9:10 AM CDT [address]. Chest CT scan 2. Stop smoking 3. Flu shot and pneumonia shot today documented in this encounter Progress Notes * Anup Garcia MD - 04/26/2018 9:15 AM CDT Chief Complaint/Reason for Consult: Follow up COPD Follow up lung nodule Referring Physician: Cory Tatum MD [facility] [address] [place] [id number] History of Present Illness: Florencia Martinez is a 67 y.o. female with past medical history significant for tobacco abuse, lung nodule, IBS, C diff, who presents to the clinic today for evaluation of COPD. Alleviated by rest, exacerbated by activity. Timing of symptoms is constant. Quality is dull, achy. Severity is moderate. Location is chest. Doing better with Anoro ellipta inhaler. Presents now for further workup and management. Does have known pulmonary nodule. Unfortunately continues to smoke. Past Medical History: 1. Emphysema as seen on imaging 2. Tobacco abuse 3. Hyperlipidemia 4. ?osteopenia vs osteoperosis 5. Uterine Fibroid 6. Eye Surgery 7. IBS 8. GERD 9. Right eye blindness since 10. History of C Diff 11. Lung nodule Medications: Current Outpatient Prescriptions Medication ??? Vitamin D, Cholecalciferol, 1000 UNITS ??? calcium 500 MG tablet ? ? Multiple Vitamins-Minerals (WOMENS MULTI VITAMIN & MINERAL) TABS ??? aspirin (ASPIRIN) 81 MG tablet ??? umeclidinium-vilanterol (ANORO ELLIPTA) 62.5-25 MCG/INH inhaler ??? cefdinir (OMNICEF) 300 MG capsule ??? albuterol HFA (PROVENTIL HFA) 108 (90 BASE) MCG/ACT inhaler ??? omeprazole EC (PRILOSEC OTC) 20 MG tablet No current facility-administered medications for this visit. Allergies: No Known Allergies Family History: COPD Social History: Social History Social History ??? Marital status: Spouse name: N/A ??? Number of children: N/A ??? Years of education: N/A Occupational History ??? Not on file. Social History Main Topics ??? Smoking status: Current Every Day Smoker Packs/day: 0.50 ??? Smokeless tobacco: Never Used ??? Alcohol use No ??? Drug use: [...] chest discomfort. No palpitations or edema. RESPIRATORY: + shortness of breath and cough GASTROINTESTINAL: No anorexia, nausea, vomiting or diarrhea. [...] hives, eczema or rhinitis. Physical Exam: Vitals: 04/26/18 0859 BP: 110/90 Pulse: 84 Temp: 97.5 ??F (36.4 ??C) SpO2: 98% Weight: 164 lb 3.2 oz (74.5 kg) General: comf HEENT: MMM Lungs: clear Cardiac: rrr Abdomen: non distended Ext: no c/c/e Neuro: a /o x3 Psych: friendly Data: No new labs Imaging: No new images Assessment and Plan: 1. COPD - continue Anoro - stop smoking - based on recent oxygen assessment, no need for supplemental oxygen 2. Tobacco abuse disorder and counseling - 12 minutes spent discussing the risks of smoking and the benefits of quitting - discussed that patient is at significant increased risk of morbidity and mortality with continuedsmoking - discussed strategies and ways of quitting 3. Pulmonary nodule - as per Avery, yearly CT for now based on prior images at OSH - explained critical importance of follow up and need to quit smoking 4. Flu shot and Prevnar 13 today Follow up in [address] Thank you for this consult. Please call if there are any questions or concerns. Anup CONNORA Sheet Metal Assemblerinsurance solicitor, Division of Pulmonary, Critical Care, and Sleep [...] be considered. Dictated by Meek Cook MD (vice president of academic affairs). I, Dr. SELINA REECE M.D. have personally [...] [facility], smoker [...] be considered. Dictated by Meek Cook MD (vice president of academic affairs). I, Dr. SELINA REECE M.D. have personally reviewed and interpretedthis examination/study. This report was electronically signed by SELINA REECE M.D. on 12/13/2018 11:34 AM . Anup Garcia MD CT ORDERABLES documented in this encounter Visit Diagnoses Diagnosis Lung nodule seen on imaging study- Primary Smoking Tobacco use disorder Encounter for immunization Need for other specified prophylactic vaccination against single bacterial disease Encounter for tobacco use cessation counseling Lung nodule seen on imaging study Smoking Tobacco use disorder documented in this encounter Care Teams Health Information Technician Relationship Specialty Start Date End Date Cory Tatum MD [address] [place] [address] [address] [place] [address] PCP - General 11/27/17 09/18/19 documented as of this encounter
== END 2024-07-14 08:21 | disposition home or self-care (01) ==
PROVIDERS: PCP Internal Medicine; Visit Provider Physician Assistant
DX: Z87.891 Personal history of nicotine dependence (principal)
CPT/HCPCS: 71271

== ENCOUNTER 2025-06-22 11:57 | Outpatient (CLI) | payer MEDICARE, SELFPAY ==
--- NOTE | ~2025-06-22 | XR_ITS ---
XR lumbar spine 2-3V Indication: Radiculopathy, lumbar region, pain x 3 years, no inj, no ingris Comparison: None Findings: Moderate loss of vertebral height, no acute fracture or subluxation. Mild osteopenia. Severe loss of disc height at L5-S1. Soft tissues unremarkable Impression: No acute abnormality. Reviewed, dictated and finalized at location P. MACHINE OPERATOR Impression: No acute abnormality.
== END 2025-06-22 11:58 | disposition home or self-care (01) ==
LOC: GOSHIMG 11:57
PROVIDERS: PCP Nurse Practitioner; Visit Provider Nurse Practitioner
DX: M54.16 Radiculopathy, lumbar region (principal)
CPT/HCPCS: 72100